=== PATIENT | male | born 1945 | race Two or more races ===

== ENCOUNTER 2024-10-31 15:30 | Emergency (ER) | payer OTHER, MEDICARE ==
[2024-10-31] MEDS: SODIUM CHLORIDE 0.9% 1,000 ML IV STA (16:19)
[2024-10-31] MEDS: LIDOCAINE 4% PATCH TOPICAL STA (16:23)
[2024-10-31] MEDS: methylPREDNISolone SOD SUCCI 125 MG/2 ML VIAL IV STA (16:26)
[2024-10-31] MEDS: KETOROLAC 15 MG/ML 1 ML VIAL IVP STA (16:26)
[2024-10-31 16:28] LABS: Basophils % (A) 0 %; Eosinophils # (A) 0.2 k/uL (0-0.7); Eosinophils % (A) 2 %; HCT 42.2 % (39.0-53.0); HGB 14.3 gm/dL (13.0-17.5); Lymphocytes # (A) 1.2 k/uL (1.0-4.8); Lymphocytes % (A) 11 %; MCH 31.7 pg (25.0-35.0); MCHC 33.8 g/dL (31.0-37.0); MCV 93.9 fL (80.0-100.0); Mean Platelet Volume 7.4; Monocytes # (A) 0.8 k/uL (0-1.0); Monocytes % (A) 7 %; Neutrophils % (A) 80 %; Platelet Count 316 k/uL (150-450); RBC 4.49 m/uL (4.30-5.90); RDW 13.1 % (11.5-15.5); WBC 11.3 k/uL (3.8-10.6)
[2024-10-31 16:40] LABS: ALT 20 U/L (4-49); AST 23 U/L (17-59); African American GFR (CKD) 53 (>60 ml/min/1.73 sqM); Albumin 4.2 g/dL (3.5-5.0); Alkaline Phosphatase 123 U/L (38-126); Anion Gap 11 mmol/L; Blood Urea Nitrogen 24 mg/dL (9-20); Calcium 9.6 mg/dL (8.4-10.2); Carbon Dioxide 21 mmol/L (22-30); Chloride 102 mmol/L (98-107); Glucose 246 mg/dL (74-99); Non-African American GFR(CKD) 46 (>60 ml/min/1.73 sqM); Potassium 4.8 mmol/L (3.5-5.1); Sodium 134 mmol/L (137-145); Total Bilirubin 0.8 mg/dL (0.2-1.3); Total Protein 7.6 g/dL (6.3-8.2)
--- NOTE | 2024-10-31 16:51 | XR ---
EXAMINATION TYPE: XR chest 2V DATE OF EXAM: 10/31/2024 4:42 PM COMPARISON: None. CLINICAL INDICATION: Male, 79 years old with history of difficulty breathing, TECHNIQUE: XR chest 2V view(s) obtained. FINDINGS: The heart size is normal. The pulmonary vasculature is normal. No suspicious focal consolidation evident. Follow-up can be performed as clinically indicated. IMPRESSION: 1. No acute pulmonary process. [facility], Workstation: [facility] [place] [facility], 10/31/2024 4:48 PM
[2024-10-31 17:03] LABS: Influenza A Not Detected (Not Detectd); Influenza B Not Detected (Not Detectd); RSV Not Detected (Not Detectd)
[2024-10-31] MEDS: IPRATROPIUM-ALBUTEROL 3 ML NEB INHALATION STA (17:36)
--- NOTE | 2024-10-31 18:15 | ED ---
General Adult HPI - General Chief complaint: Shortness of Breath Stated complaint: CARLOS Time Seen by Provider: 10/31/24 16:02 Source: patient, RN notes reviewed, old records reviewed Mode of arrival: wheelchair Limitations: no limitations - History of Present Illness Initial comments: Patient is a 79-year-old male with past medical history remarkable for tobacco use, COPD, recent bronchitis that he completed treatment for last week, who presents emergency department with worsening cough, congestion for the last day or so. Denies any fevers or chills. Denies any sick contacts. Patient has been having some chest wall pain with the coughing starting today. Is typically not on an inhaler. No longer smokes tobacco. Presents for further evaluation at this time. Chest wall pain is sharp, on the right side pinpoint on one of the lower ribs and is worse with palpation of that rib. No obvious injuries or falls. Presents for further evaluation at this time. - Related Data Previous Rx's Medication Instructions Recorded Albuterol Inhaler [Ventolin Hfa 1 - 2 puff INHALATION Q6H PRN #1 10/31/24 Inhaler] each Doxycycline [Vibramycin] 100 mg PO BID 7 Days #14 capsule 10/31/24 Lidocaine 5% Patch [Lidoderm 5% 1 patch TOPICAL DAILY PRN 14 Days 10/31/24 Patch] #14 patch predniSONE [Deltasone] 40 mg PO DAILY 6 Days #12 tab 10/31/24 Allergies Allergy/AdvReac Type Severity Reaction Status Date / Time amoxicillin Allergy Unknown Verified 10/31/24 15:42 Penicillins Allergy Unknown Verified 10/31/24 15:42 Review of Systems ROS Statement: Those systems with pertinent positive or pertinent negative responses have been documented in the HPI. Review of Systems: CONST: Denies fever EYES: Denies blurry vision ENT: Denies nasal congestion C/V: Denies Chest pain RESP: Endorses shortness of breath GI: Denies abdominal pain : Denies dysuria SKIN: Denies rash. MSK: Denies joint pain. NEURO: Denies headache ROS Other: All systems not noted in ROS Statement are negative. Past Medical History Past Medical History: COPD, Diabetes Mellitus, Hypertension Additional Past Medical History / Comment(s): "I take a lot of medication, I don't know what I take it for" Past Surgical History: Back Surgery, Hernia Repair, Tonsillectomy Additional Past Surgical History / Comment(s): neck surgery Smoking Status: Current every day smoker Past Alcohol Use History: None Reported Past Drug Use History: Marijuana General Exam - General Exam Comments Initial Comments: General: Appears in no acute distress. HEAD: Normal with no signs of head trauma. EYES: PERRLA, EOMI, conjunctiva normal, no discharge. ENT: Hearing grossly intact, normal oropharynx. RESPIRATORY: Coarse breath sounds bilaterally with bilateral end expiratory wheezing. No significant increased work of breathing. No hypoxia. C/V: Regular rate and rhythm. S1 and S2 auscultated, no edema, peripheral pulses 2+ and intact throughout ABD: Abd is soft, nontender, nondistended EXT: Normal range of motion, no obvious deformity SKIN: No rashes or lesions observed on exposed skin. NEURO: Alert and oriented x 4. 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 sent in by a medical professional or institution (, PA, COMPANY LABORER, urgent care, hospital, or long-term...) When possible be specific @ -No Did you speak to anyone other than the patient for history (EMS, parent, family, police, friend...)? What history was obtained from this source @ -No Did you review nursing and triage notes (agree or disagree)? Why? @ -I reviewed and agree with nursing and triage notes Were old charts reviewed (outside hosp., previous admission, EMS record, old EKG, old radiological studies, urgent care reports/EKG's, long-term records)? Report findings @ -No old charts were reviewed Differential Diagnosis (chest pain, altered mental status, abdominal pain women, abdominal pain men, vaginal bleeding, weakness, fever, dyspnea, syncope, headache, dizziness, GI bleed, back pain, seizure, CVA, palpatations, mental health, musculoskeletal)? @ -COPD, pneumonia, flu, COVID, RSV. This list is not all inclusive. EKG interpreted by me (3pts min.). @ -As above X-rays interpreted by me (1pt min.). @ -Chest x-ray reveals no obvious acute cardiopulmonary process. CT interpreted by me (1pt min.). @ -None done U/S interpreted by me (1pt. min.). @ -None done What testing was considered but not performed or refused? (CT, X-rays, U/S, labs)? Why? @ -None What meds were considered but not given or refused? Why? @ -None Did you discuss the management of the patient with other professionals (professionals i.e. , PA, COMPANY LABORER, lab, RT, psych nurse, psychologist social, php website developer, teacher, weapons electrical engineering officer, case mgr)? Give summary @ -No Was smoking cessation discussed for >3mins.? @ -No Was critical care preformed (if so, how long)? @ -No Were there social determinants of health that impacted care today? How? (Homelessness, low income, unemployed, alcoholism, drug addiction, transportation, low edu. Level, literacy, decrease access to med. care, halfway, rehab)? @ -No Was there de-escalation of care discussed even if they declined (Discuss DNR or withdrawal of care, Hospice)? DNR status @ -No What co-morbidities impacted this encounter? (DM, HTN, Smoking, COPD, CAD, Cancer, CVA, ARF, Chemo, Hep., AIDS, mental health diagnosis, sleep apnea, morbid obesity)? @ -COPD Was patient admitted / discharged? Hospital course, mention meds given and route, prescriptions, significant lab abnormalities, going to OR and other perti nent info. @ -Patient presents with chest wall pain/rib pain over the right chest as well as shortness of breath. Appears to be a COPD exacerbation. Laboratory studies will be obtained. Vital signs are within acceptable limits. We will obtain viral swabs as well as chest x-ray. Patient was in agreement this plan. Patient be given multiple breathing treatments, IV steroids, IV fluids. Chest x-ray returned unremarkable for any obvious acute cardiopulmonary process. EKG shows no signs of acute ischemia. Laboratory studies are all within acceptable limits at this time. Viral swabs negative. May be a mild MONTSE but patient did receive 1 L fluid bolus. Discussed results with the patient. Likely a tracheobronchitis that is acute in addition to COPD exacerbation. Patient will be placed on a steroid prescription as well as doxycycline for tracheobronchitis. Patient given a refill on his albuterol inhaler. Patient was given lidocaine patch and IV Toradol which did help his right sided rib pain which is likely either contusion or intercostal muscle strain from the coughing. Recommended pain control at that site. He was in agreement this plan. Strict return precautions discussed. Given a auto service representative to follow-up with. I instructed the patient to follow up with their PCP in the next 1-3 days. I explained that the patient should return to the emergency department if they experience any worsening symptoms. Strict return precautions were discussed with the patient. The patient expressed understanding of these instructions. I answered all questions that the patient had. The patient was discharged home in good condition with their prescriptions and follow up information. Undiagnosed new problem with uncertain prognosis? @ -No Drug Therapy requiring intensive monitoring for toxicity (Heparin, Nitro, Insulin, Cardizem)? @ -No Were any procedures done? @ -No Diagnosis/symptom? @ -COPD, acute tracheobronchitis Acute, or Chronic, or Acute on Chronic? @ -Acute Uncomplicated (without systemic symptoms) or Complicated (systemic symptoms)? @ -Uncomplicated Side effects of treatment? @ -No Exacerbation, Progression, or Severe Exacerbation? @ -No Poses a threat to life or bodily function? How? (Chest pain, [place], [place], pneumonia, PE, COPD, DKA, ARF, appy, cholecystitis, CVA, Diverticulitis, Homicidal, Suicidal, threat to staff... and all critical care pts) @ -Unlikely at this time - Lab Data Result diagrams: 10/31/24 16:13 10/31/24 16:13 Lab Results 10/31/24 10/31/24 10/31/24 Range/Units 16:13 16:13 16:14 WBC 11.3 H (3.8-10.6) k/uL RBC 4.49 (4.30-5.90) m/uL Hgb 14.3 (13.0-17.5) gm/dL Hct 42.2 (39.0-53.0) % MCV 93.9 (80.0-100.0) fL MCH 31.7 (25.0-35.0) pg MCHC 33.8 (31.0-37.0) g/dL RDW 13.1 (11.5-15.5) % Plt Count 316 (150-450) k/uL MPV 7.4 Neutrophils % 80 % Lymphocytes % 11 % Monocytes % 7 % Eosinophils % 2 % Basophils % 0 % Neutrophils # 9.0 H (1.3-7.7) k/uL Lymphocytes # 1.2 (1.0-4.8) k/uL Monocytes # 0.8 (0-1.0) k/uL Eosinophils # 0.2 (0-0.7) k/uL Basophils # 0.0 (0-0.2) k/uL Sodium 134 L (137-145) mmol/L Potassium 4.8 (3.5-5.1) mmol/L Chloride 102 (98-107) mmol/L Carbon Dioxide 21 L (22-30) mmol/L Anion Gap 11 mmol/L BUN 24 H (9-20) mg/dL Creatinine 1.46 H (0.66-1.25) mg/dL Est GFR (CKD-EPI)AfAm 53 (>60 ml/min/1.73 sqM) Est GFR (CKD-EPI)NonAf 46 (>60 ml/min/1.73 sqM) Glucose 246 H (74-99) mg/dL Calcium 9.6 (8.4-10.2) mg/dL Magnesium 2.0 (1.6-2.3) mg/dL Total Bilirubin 0.8 (0.2-1.3) mg/dL AST 23 (17-59) U/L ALT 20 (4-49) U/L Alkaline Phosphatase 123 (38-126) U/L Total Protein 7.6 (6.3-8.2) g/dL Albumin 4.2 (3.5-5.0) g/dL Influenza Type A (PCR) Not Detected (Not Detectd) Influenza Type B (PCR) Not Detected (Not Detectd) RSV (PCR) Not Detected (Not Detectd) SARS-CoV-2 (PCR) Not Detected (Not Detectd) - EKG Data -: EKG Interpreted by Me EKG Comments: 12-lead Electrocardiogram Interpretation Note EKG was reviewed and interpreted by myself. 12-lead ECG performed at 1556 is interpreted by me as revealing sinus tachycardia at a rate of 110 beats per minute. Left axis deviation. ID interval is 191 ms, QRS durations 133 ms, QTc is 377 ms.. There were no ST or T wave abnormalities to suggest myocardial ischemia or injury. R wave progression across the precordium was satisfactory. By my interpretation this EKG is non-diagnostic for acute ischemia. Disposition Clinical Impression: COPD (chronic obstructive pulmonary disease), Tracheobronchitis Disposition: HOME SELF-CARE Condition: Good Instructions (If sedation given, give patient instructions): Acute Bronchitis (ED), COPD (Chronic Obstructive Pulmonary Disease) (ED) Additional Instructions: Follow-up with your PCP or pulmonology in the next 1 to 3 days. You likely a tracheobronchitis/bronchitis with COPD exacerbation. Complete course of ant ibiotics and steroids. Use inhaler as needed. Return if any worsening symptoms. Prescriptions: predniSONE [Deltasone] 40 mg PO DAILY 6 Days #12 tab Lidocaine 5% Patch [Lidoderm 5% Patch] 1 patch TOPICAL DAILY PRN 14 Days #14 patch PRN Reason: Pain Albuterol Inhaler [Ventolin Hfa Inhaler] 1 - 2 puff INHALATION Q6H PRN #1 each PRN Reason: Dyspnea Doxycycline [Vibramycin] 100 mg PO BID 7 Days #14 capsule Is patient prescribed a controlled substance at d/c from ED?: No Referrals: Jaiden Cardona MD [Primary Care Provider] - 1-2 days Tim Quarles DO [Doctor of Osteopathic Medicine] - 1-2 days Time of Disposition: 18:15
[2024-10-31] MEDS: DOXYCYCLINE 100 MG CAP PO STA (18:42)
[2024-10-31] MEDS: cefTRIAXone IN SWFI 1,000 MG/10 ML SYRINGE IVP STA (18:43)
[2024-10-31 19:01] VITALS: BP 110/68; RESP 18; TEMP 97.6
[2024-10-31 19:04] VITALS: PULSE 103
== END 2024-10-31 18:58 | disposition home or self-care (01) ==
LOC: EC 15:30
DX: J44.9 Chronic obstructive pulmonary disease, unspecified (principal); J40 Bronchitis, not specified as acute or chronic; F17.200 Nicotine dependence, unspecified, uncomplicated; Z88.0 Allergy status to penicillin
CPT/HCPCS: 36415; 94640; 93005; 80053; 83735; 85025; 87636; 71046; 99285; 96374; 96375 ×2; 96361; J0696; J1885; J2919

== ENCOUNTER 2024-12-07 16:53 | Inpatient (IN) | payer MEDICARE, OTHER ==
[2024-12-07] MEDS: SODIUM CHLORIDE 0.9% 1,000 ML IV STA (17:07)
--- NOTE | 2024-12-07 17:10 | ED ---
SOB HPI - General Chief Complaint: Shortness of Breath Stated Complaint: CARLOS Time Seen by Provider: 12/07/24 16:55 Source: patient, EMS, RN notes reviewed, old records reviewed Mode of arrival: EMS Limitations: no limitations - History of Present Illness Initial Comments: This is a 79-year-old male to the ER for significant shortness of breath recently recovering from bronchitis feels like he is having difficulty breathing here in the ER patient went to the ground was unable to get up off the ground became more short of breath while lying on the ground. Patient was on the ground for a few hours he believes unable to get up, patient denies passing out or other issue prior to the fall was not significantly short of breath prior to the fall and states that he fell because he was clumsy MD Complaint: shortness of breath, cough -: days(s) Radiation: back Consistency: constant, intermittent Worsens With: exertion Known History Of: COPD, asthma Context: recent URI, anxiety, recent illness Associated Symptoms: denies other symptoms - Related Data Home Medications Medication Instructions Recorded Confirmed Albuterol Sulfate [Albuterol 1 puff INHALATION RT-Q4H PRN 11/22/24 12/07/24 Sulfate Hfa] FLUoxetine HCL [PROzac] 10 mg PO TID 11/22/24 12/07/24 Gabapentin [Neurontin] 100 mg PO TID 11/22/24 12/07/24 Mv-Min/Folic/K1/Lycopen/Lutein 1 tab PO DAILY 11/22/24 12/07/24 [Centrum Silver Men Tablet] QUEtiapine [SEROquel] 25 mg PO BID 11/22/24 12/07/24 Zonisamide [Zonegran] 50 mg PO BID 11/22/24 12/07/24 Zonisamide [Zonegran] 100 mg PO BID 11/22/24 12/07/24 Apixaban [Eliquis] 5 mg PO BID 12/07/24 12/07/24 Budesonide-Formot 160-4.5 Mcg 2 puff INHALATION RT-BID 12/07/24 12/07/24 [Symbicort 160-4.5 Mcg Inhaler] Previous Rx's Medication Instructions Recorded Ipratropium-Albuterol Nebulize 3 ml INHALATION TID #90 ml 11/23/24 [Duoneb 0.5 mg-3 mg/3 ml Soln] Allergies Allergy/AdvReac Type Severity Reaction Status Date / Time amoxicillin Allergy Unknown Verified 12/07/24 19:03 Penicillins Allergy Unknown Verified 12/07/24 19:03 Review of Systems ROS Statement: Those systems with pertinent positive or pertinent negative responses have been documented in the HPI. ROS Other: All systems not noted in ROS Statement are negative. Past Medical History Past Medical History: COPD, Diabetes Mellitus, Hypertension Additional Past Medical History / Comment(s): "I take a lot of medication, I don't know what I take it for" History of Any Multi-Drug Resistant Organisms: None Reported Past Surgical History: Back Surgery, Hernia Repair, Tonsillectomy Additional Past Surgical History / Comment(s): neck surgery Past Psychological History: No Psychological Hx Reported Smoking Status: Current every day smoker Past Alcohol Use History: None Reported Past Drug Use History: None Reported, Marijuana General Exam Limitations: no limitations General appearance: alert, in no apparent distress, anxious Head exam: Present: atraumatic, normocephalic, normal inspection Eye exam: Present: normal appearance, PERRL, EOMI. Absent: scleral icterus, conjunctival injection, periorbital swelling ENT exam: Present: normal exam, mucous membranes moist Neck exam: Present: normal inspection. Absent: tenderness, meningismus, lymphadenopathy Respiratory exam: Present: normal lung sounds bilaterally, wheezes. Absent: respiratory distress, rales, rhonchi, stridor Cardiovascular Exam: Present: normal rhythm, tachycardia, normal heart sounds. Absent: systolic murmur, diastolic murmur, rubs, gallop, clicks GI/Abdominal exam: Present: soft, normal bowel sounds. Absent: distended, tenderness, guarding, rebound, rigid Extremities exam: Present: normal inspection, full ROM, normal capillary refill. Absent: tenderness, pedal edema, joint swelling, calf tenderness Back exam: Present: normal inspection Neurological exam: Present: alert, oriented X3, CN II-XII intact Psychiatric exam: Present: normal affect, normal mood Skin exam: Present: warm, dry, intact, normal color. Absent: rash Course Vital Signs 12/07/24 12/07/24 12/07/24 16:56 17:15 19:41 Temperature 98.1 F Pulse Rate 121 H 109 H Respiratory 20 24 Rate Blood Pressure 108/69 O2 Sat by Pulse 93 L Oximetry 12/07/24 12/07/24 12/07/24 19:51 20:10 21:12 Temperature 97.8 F Pulse Rate 112 H 112 H 115 H Respiratory 15 19 Rate Blood Pressure 93/65 84/56 O2 Sat by Pulse 97 97 Oximetry 12/08/24 12/08/24 12/08/24 00:00 01:30 02:30 Temperature Pulse Rate 70 98 97 Respiratory 18 17 15 Rate Blood Pressure 96/63 79/40 107/55 O2 Sat by Pulse 96 97 99 Oximetry 12/08/24 12/08/24 12/08/24 03:30 03:54 04:04 Temperature Pulse Rate 89 91 89 Respiratory 16 Rate Blood Pressure 112/84 O2 Sat by Pulse 98 Oximetry 12/08/24 12/08/24 12/08/24 05:27 07:42 12:38 Temperature Pulse Rate 75 90 Respiratory 19 Rate Blood Pressure 91/58 O2 Sat by Pulse 97 100 Oximetry 12/08/24 12/08/24 12:47 13:09 Temperature Pulse Rate 88 101 H Respiratory 22 Rate Blood Pressure 107/49 O2 Sat by Pulse 97 Oximetry - Reevaluation(s) Reevaluation #1: 12/07/24 17:39 Medical records reviewed Reevaluation #2: 12/07/24 19:33 Patient feels well here in the ER although heart rate is increasing With elevated heart rate atrial fibrillation patient is having low blood pressure Reevaluation #3: 12/07/24 19:33 Patient informed of results and questions answered Reevaluation #4: Was pt. sent in by a medical professional or institution (, PA, MOBILE MARKETING MANAGER, urgent care, hospital, or half-way...) When possible be specific @ -no Did you speak to anyone other than the patient for history (EMS, parent, family, police, friend...)? What history was obtained from this source @ -no Did you review nursing and triage notes (agree or disagree)? Why? @ -agree Are old charts reviewed (outside hosp., previous admission, EMS record, old EKG, old radiological studies, urgent care reports/EKG's, half-way records)? Report findings @ -yes Differential Diagnosis (chest pain, altered mental status, abdominal pain women, abdominal pain men, vaginal bleeding, weakness, fever, dyspnea, syncope, headache, dizziness, GI bleed, back pain, seizure, CVA, palpatations, mental health, musculoskeletal)? @ -prior EKG interpreted by me (3pts min.). @ -yes X-rays interpreted by me (1pt min.). @ -yes negative for acute disease persisting right upper lobe opacification CT interpreted by me (1pt min.). @ -no U/S interpreted by me (1pt. min.). @ -no What testing was considered but not performed or refused? (CT, X-rays, U/S, labs)? Why? @ -none What meds were considered but not given or refused? Why? @ -none Did you discuss the management of the patient with other professionals (professionals i.e. , PA, MOBILE MARKETING MANAGER, lab, RT, psych nurse, social staff worker, organ pipe voicer, teacher, coastal/harbor defense officer, embedded case manager)? Give summary @ -no Was smoking cessation discussed for >3mins.? @ -no Was critical care preformed (if so, how long)? @ -yes31 Were there social determinants of health that impacted care today? How? (Homelessness, low income, unemployed, alcoholism, drug addiction, transportation, low edu. Level, literacy, decrease access to med. care, intermediate, rehab)? @ -none Was there de-escalation of care discussed even if they declined (Discuss DNR or withdrawal of care, Hospice)? DNR status @ -no What co-morbidities impacted this encounter? (DM, HTN, Smoking, COPD, CAD, Cancer, CVA, ARF, Chemo, Hep., AIDS, mental health diagnosis, sleep apnea, morbid obesity)? @ -none Was patient admitted / discharged? Hospital course, mention meds given and route, prescriptions, significant lab abnormalities, going to OR and other pertinent info. @ - 79 male to ER for evaluation of dyspnea, this event occurred initially after falling, trip and fall at home was unable to get off the ground and became progressively short of breath while the ground patient is found to be in new onset atrial fibrillation with RVR chronic lung condition and lung disease from acute on chronic bronchitis and mediastinal mass and right upper lobe opacification, patient will admit for initial hypoxia A-fib with RVR, patient is on anticoagulation for blood clot Admit Undiagnosed new problem with uncertain prognosis? @ -no Drug Therapy requiring intensive monitoring for toxicity (Heparin, Nitro, Insulin, Cardizem)? @ -no Were any procedures done? @ -no Diagnosis/symptom? @ -A-fib with RVR,chronic bronchitis upper lobe opacification Acute, or Chronic, or Acute on Chronic? @ -Acute Uncomplicated (without systemic symptoms) or Complicated (systemic symptoms)? @ -Complicated Side effects of treatment? @ -no Exacerbation, Progression, or Severe Exacerbation? @ -exacerbation Poses a threat to life or bodily function? How? (Chest pain, [place], [place], pneumonia, PE, COPD, DKA, ARF, appy, cholecystitis, CVA, Diverticulitis, Homicidal, Suicidal, threat to staff... and all critical care pts) @ -yes extremes of age Reevaluation #5: Differential Dyspnea: Coronary syndrome, arrhythmia, tamponade, asthma, COPD, pulmonary embolism, pneumonia, pneumothorax, pulmonary effusion, anaphylaxis, diabetic ketoacidosis, flailed chest, pulmonary contusion, diaphragmatic rupture, anemia, neuromuscular, this is not meant to be an all-inclusive list. - Consultations Consultation #1: Spoke with [facility] who agrees to admit this patient Medical Decision Making - Medical Decision Making 79 male to ER for evaluation of dyspnea, this event occurred initially after falling, trip and fall at home was unable to get off the ground and became progressively short of breath while the ground patient is found to be in new onset atrial fibrillation with RVR chronic lung condition and lung disease from acute on chronic bronchitis and mediastinal mass and right upper lobe opacification, patient will admit for initial hypoxia A-fib with RVR, patient is on anticoagulation for blood clot - Lab Data Result diagrams: 12/14/24 06:59 12/14/24 06:59 Lab Results 12/07/24 12/07/24 12/07/24 Range/Units 17:02 17:02 17:02 WBC 8.5 (3.8-10.6) k/uL RBC 4.11 L (4.30-5.90) m/uL Hgb 11.8 L (13.0-17.5) gm/dL Hct 39.1 (39.0-53.0) % MCV 95.0 (80.0-100.0) fL MCH 28.6 (25.0-35.0) pg MCHC 30.1 L (31.0-37.0) g/dL RDW 13.2 (11.5-15.5) % Plt Count 334 (150-450) k/uL MPV 7.2 Neutrophils % 82 % Lymphocytes % 12 % Monocytes % 4 % Eosinophils % 1 % Basophils % 0 % Neutrophils # 6.9 (1.3-7.7) k/uL Lymphocytes # 1.0 (1.0-4.8) k/uL Monocytes # 0.3 (0-1.0) k/uL Eosinophils # 0.0 (0-0.7) k/uL Basophils # 0.0 (0-0.2) k/uL Hypochromasia Slight PT 10.9 (10.0-12.5) sec INR 1.0 (<1.2) APTT 24.9 (22.0-30.0) sec Sodium 132 L (137-145) mmol/L Potassium 4.6 (3.5-5.1) mmol/L Chloride 97 L (98-107) mmol/L Carbon Dioxide 21 L (22-30) mmol/L Anion Gap 14 mmol/L BUN 25 H (9-20) mg/dL Creatinine 1.42 H (0.66-1.25) mg/dL Est GFR (CKD-EPI)AfAm 55 (>60 ml/min/1.73 sqM) Est GFR (CKD-EPI)NonAf 48 (>60 ml/min/1.73 sqM) Glucose 256 H (74-99) mg/dL Lactic Ac Sepsis Rflx Plasma Lactic Acid Chepe (0.7-2.0) mmol/L Calcium 9.2 (8.4-10.2) mg/dL Phosphorus 4.1 (2.5-4.5) mg/dL Magnesium 1.9 (1.6-2.3) mg/dL Total Bilirubin 0.7 (0.2-1.3) mg/dL AST 28 (17-59) U/L ALT 28 (4-49) U/L Alkaline Phosphatase 140 H (38-126) U/L Creatine Kinase (55-170) U/L Troponin I (0.000-0.034) ng/mL NT-Pro-B Natriuret Pep 6220 pg/mL Total Protein 6.9 (6.3-8.2) g/dL Albumin 3.6 (3.5-5.0) g/dL TSH 1.480 (0.465-4.680) mIU/L Influenza Type A (PCR) (Not Detectd) Influenza Type B (PCR) (Not Detectd) RSV (PCR) (Not Detectd) SARS-CoV-2 (PCR) (Not Detectd) 12/07/24 12/07/24 12/07/24 Range/Units 17:02 17:02 17:02 WBC (3.8-10.6) k/uL RBC (4.30-5.90) m/uL Hgb (13.0-17.5) gm/dL Hct (39.0-53.0) % MCV (80.0-100.0) fL MCH (25.0-35.0) pg MCHC (31.0-37.0) g/dL RDW (11.5-15.5) % Plt Count (150-450) k/uL MPV Neutrophils % % Lymphocytes % % Monocytes % % Eosinophils % % Basophils % % Neutrophils # (1.3-7.7) k/uL Lymphocytes # (1.0-4.8) k/uL Monocytes # (0-1.0) k/uL Eosinophils # (0-0.7) k/uL Basophils # (0-0.2) k/uL Hypochromasia PT (10.0-12.5) sec INR (<1.2) APTT (22.0-30.0) sec Sodium (137-145) mmol/L Potassium (3.5-5.1) mmol/L Chloride (98-107) mmol/L Carbon Dioxide (22-30) mmol/L Anion Gap mmol/L BUN (9-20) mg/dL Creatinine (0.66-1.25) mg/dL Est GFR (CKD-EPI)AfAm (>60 ml/min/1.73 sqM) Est GFR (CKD-EPI)NonAf (>60 ml/min/1.73 sqM) Glucose (74-99) mg/dL Lactic Ac Sepsis Rflx Plasma Lactic Acid Chepe 2.5 H* (0.7-2.0) mmol/L Calcium (8.4-10.2) mg/dL Phosphorus (2.5-4.5) mg/dL Magnesium (1.6-2.3) mg/dL Total Bilirubin (0.2-1.3) mg/dL AST (17-59) U/L ALT (4-49) U/L Alkaline Phosphatase (38-126) U/L Creatine Kinase 58 (55-170) U/L Troponin I 0.019 (0.000-0.034) ng/mL NT-Pro-B Natriuret Pep pg/mL Total Protein (6.3-8.2) g/dL Albumin (3.5-5.0) g/dL TSH (0.465-4.680) mIU/L Influenza Type A (PCR) (Not Detectd) Influenza Type B (PCR) (Not Detectd) RSV (PCR) (Not Detectd) SARS-CoV-2 (PCR) (Not Detectd) 12/07/24 12/07/24 Range/Units 17:29 18:04 WBC (3.8-10.6) k/uL RBC (4.30-5.90) m/uL Hgb (13.0-17.5) gm/dL Hct (39.0-53.0) % MCV (80.0-100.0) fL MCH (25.0-35.0) pg MCHC (31.0-37.0) g/dL RDW (11.5-15.5) % Plt Count (150-450) k/uL MPV Neutrophils % % Lymphocytes % % Monocytes % % Eosinophils % % Basophils % % Neutrophils # (1.3-7.7) k/uL Lymphocytes # (1.0-4.8) k/uL Monocytes # (0-1.0) k/uL Eosinophils # (0-0.7) k/uL Basophils # (0-0.2) k/uL Hypochromasia PT (10.0-12.5) sec INR (<1.2) APTT (22.0-30.0) sec Sodium (137-145) mmol/L Potassium (3.5-5.1) mmol/L Chloride (98-107) mmol/L Carbon Dioxide (22-30) mmol/L Anion Gap mmol/L BUN (9-20) mg/dL Creatinine (0.66-1.25) mg/dL Est GFR (CKD-EPI)AfAm (>60 ml/min/1.73 sqM) Est GFR (CKD-EPI)NonAf (>60 ml/min/1.73 sqM) Glucose (74-99) mg/dL Lactic Ac Sepsis Rflx Y Plasma Lactic Acid Chepe (0.7-2.0) mmol/L Calcium (8.4-10.2) mg/dL Phosphorus (2.5-4.5) mg/dL Magnesium (1.6-2.3) mg/dL Total Bilirubin (0.2-1.3) mg/dL AST (17-59) U/L ALT (4-49) U/L Alkaline Phosphatase (38-126) U/L Creatine Kinase (55-170) U/L Troponin I (0.000-0.034) ng/mL NT-Pro-B Natriuret Pep pg/mL Total Protein (6.3-8.2) g/dL Albumin (3.5-5.0) g/dL TSH (0.465-4.680) mIU/L Influenza Type A (PCR) Not Detected (Not Detectd) Influenza Type B (PCR) Not Detected (Not Detectd) RSV (PCR) Not Detected (Not Detectd) SARS-CoV-2 (PCR) Not Detected (Not Detectd) - EKG Data -: EKG Interpreted by Me (EKG is a flutter tachycardia 117 QRS 124 QTc 404) - Radiology Data Radiology results: report reviewed (Chest x-ray is unchanged from prior chest x- ray), image reviewed Disposition Clinical Impression: Acute exacerbation of chronic obstructive pulmonary disease, Acute respiratory failure, Hypoxia, Atrial fibrillation with rapid ventricular response, Lung m ass, Pulmonary embolism Disposition: ADMITTED IP TO THIS HOSP Condition: Serious Is patient prescribed a controlled substance at d/c from ED?: No Time of Disposition: 19:30
[2024-12-07 17:23] LABS: Basophils % (A) 0 %; Eosinophils % (A) 1 %; HCT 39.1 % (39.0-53.0); HGB 11.8 gm/dL (13.0-17.5); Hypochromasia Slight; Lymphocytes % (A) 12 %; MCH 28.6 pg (25.0-35.0); MCHC 30.1 g/dL (31.0-37.0); Mean Platelet Volume 7.2; Monocytes # (A) 0.3 k/uL (0-1.0); Monocytes % (A) 4 %; Neutrophils # (A) 6.9 k/uL (1.3-7.7); Neutrophils % (A) 82 %; Platelet Count 334 k/uL (150-450); RBC 4.11 m/uL (4.30-5.90); RDW 13.2 % (11.5-15.5); WBC 8.5 k/uL (3.8-10.6)
--- NOTE | 2024-12-07 17:30 | XR ---
EXAMINATION TYPE: XR chest 2V DATE OF EXAM: 12/07/2024 5:23 PM COMPARISON: Previous chest radiograph 11/21/2024. CLINICAL INDICATION: Male, 79 years old with history of Weakness; [facility] TECHNIQUE: XR chest 2V Frontal and lateral views of the chest. FINDINGS: Lungs/Pleura: Complete collapse of the right upper lobe and prominence of the right hilar region. No sizable pleural effusion. Pulmonary vascularity: Unremarkable. Heart/mediastinum: Cardiomediastinal silhouette is unremarkable. Musculoskeletal: No acute osseous pathology. Thoracic spine degenerative changes Other findings: None IMPRESSION: Complete opacification of the right upper lobe, likely due to sequelae of obstructing mediastinal mas s previously described on CT study 11/21/2024. [facility], , 12/07/2024 5:28 PM
[2024-12-07 17:34] LABS: ALT 28 U/L (4-49); AST 28 U/L (17-59); African American GFR (CKD) 55 (>60 ml/min/1.73 sqM); Albumin 3.6 g/dL (3.5-5.0); Alkaline Phosphatase 140 U/L (38-126); Anion Gap 14 mmol/L; Blood Urea Nitrogen 25 mg/dL (9-20); Calcium 9.2 mg/dL (8.4-10.2); Carbon Dioxide 21 mmol/L (22-30); Chloride 97 mmol/L (98-107); Glucose 256 mg/dL (74-99); Magnesium 1.9 mg/dL (1.6-2.3); Non-African American GFR(CKD) 48 (>60 ml/min/1.73 sqM); Phosphorus 4.1 mg/dL (2.5-4.5); Potassium 4.6 mmol/L (3.5-5.1); Sodium 132 mmol/L (137-145); Total Bilirubin 0.7 mg/dL (0.2-1.3); Total Protein 6.9 g/dL (6.3-8.2)
[2024-12-07 17:42] LABS: NT-Pro-B-Type Natriuretic Pept 6220 pg/mL
[2024-12-07 17:45] LABS: Partial Thromboplastin Time 24.9 sec (22.0-30.0); Prothrombin Time 10.9 sec (10.0-12.5)
[2024-12-07 18:26] LABS: Influenza A Not Detected (Not Detectd); Influenza B Not Detected (Not Detectd); RSV Not Detected (Not Detectd)
[2024-12-07] MEDS ORDERED: NALOXONE 0.4 MG/ML 1 ML VIAL IV PRN (19:25)
[2024-12-07] MEDS: IPRATROPIUM-ALBUTEROL 3 ML NEB INHALATION STA (19:40)
[2024-12-07] MEDS: DILTIAZEM 125 MG in SODIUM CHLORIDE 0.9% 100 ML IV SCH (20:04)
[2024-12-07] MEDS: MORPHINE SULFATE 4 MG/ML SYRINGE IV PRN (20:05)
[2024-12-07] MEDS: DILTIAZEM DRIP BOLUS FROM BAG 1 MG SOLN IV ONE (20:05)
[2024-12-07] MEDS: SODIUM CHLORIDE 0.9% 1,000 ML IV SCH (20:06)
[2024-12-08] MEDS: IPRATROPIUM-ALBUTEROL 3 ML NEB INHALATION PRN (03:54)
[2024-12-08 04:27] LABS: ALT 25 U/L (4-49); AST 21 U/L (17-59); African American GFR (CKD) 56 (>60 ml/min/1.73 sqM); Alkaline Phosphatase 130 U/L (38-126); Anion Gap 7 mmol/L; Blood Urea Nitrogen 26 mg/dL (9-20); Calcium 8.6 mg/dL (8.4-10.2); Carbon Dioxide 22 mmol/L (22-30); Chloride 99 mmol/L (98-107); Magnesium 1.9 mg/dL (1.6-2.3); Non-African American GFR(CKD) 49 (>60 ml/min/1.73 sqM); Phosphorus 4.7 mg/dL (2.5-4.5); Potassium 4.9 mmol/L (3.5-5.1); Sodium 128 mmol/L (137-145); Total Bilirubin 0.4 mg/dL (0.2-1.3); Total Protein 5.8 g/dL (6.3-8.2)
[2024-12-08 04:31] LABS: Glucose 558 mg/dL (74-99)
[2024-12-08 04:39] LABS: Glucose,Whole Blood 559 mg/dL (70-110)
[2024-12-08 04:46] LABS: Basophils % (A) 0 %; Eosinophils % (A) 0 %; HGB 10.4 gm/dL (13.0-17.5); Hypochromasia Slight; Lymphocytes # (A) 0.3 k/uL (1.0-4.8); Lymphocytes % (A) 6 %; MCH 29.8 pg (25.0-35.0); MCHC 30.5 g/dL (31.0-37.0); MCV 97.6 fL (80.0-100.0); Mean Platelet Volume 7.8; Monocytes # (A) 0.2 k/uL (0-1.0); Monocytes % (A) 3 %; Neutrophils # (A) 4.6 k/uL (1.3-7.7); Neutrophils % (A) 90 %; Platelet Count 320 k/uL (150-450); RBC 3.49 m/uL (4.30-5.90); RDW 13.4 % (11.5-15.5); WBC 5.1 k/uL (3.8-10.6)
[2024-12-08] MEDS ORDERED: DEXTROSE 50% SYRINGE 50 ML IVP PRN ×2 (05:20)
[2024-12-08] MEDS: INSULIN LISPRO (HumaLOG) 100 UNIT/ML 10 mL VL SQ SCH ×2 (05:47→12:55)
[2024-12-08 06:40] LABS: Glucose,Whole Blood 426 mg/dL (70-110)
[2024-12-08 08:52] LABS: Glucose,Whole Blood 208 mg/dL (70-110)
[2024-12-08] MEDS ORDERED: ALBUTEROL HFA INHALER INHALATION PRN (10:58)
--- NOTE | 2024-12-08 11:50 | P.HPIM ---
History of Present Illness 79-year-old male came in after a fall patient denied any shortness of breath at this time. Patient is found to be in atrial fibrillation with rapid unclear rate this is new onset A-fib patient is presently sinus rhythm rate controlled. Patient was eval by cardiology was started on Anticoagulation and rate control medications. Patient has elevated proBNP with chest x-ray did not show any congestive heart failure patient has been n.p.o. 6000 although patient appears to be volume depleted clinically patient is hypotensive and hyponatremic. Patient does not have any elevated JVD or pedal edema. Patient fall is not secondary to syncope but he slipped and fell. Patient was recently hospitalized and found to have a mass in the right upper lobe patient quit smoking does not have any history of COPD as per the patient does not use any oxygen at home. Patient is saturating 100% on 2 L. Patient is supposed to follow-up with Dr. Quarles as an outpatient but did not make an appointment yet, patient is supposed to follow-up with oncology as well as an outpatient. Patient is supposed to follow-up with oncology as an outpatient as well. Is not a known diabetic but his blood sugars are in 500s I do not have any hemoglobin A1c available at this time. Patient was started on IV insulin. Patient also had mild lactic acidosis . Patient serum creatinine is 1.4 on admission came down to 1.3 patient has chronic history of chronic kidney disease. REVIEW OF SYSTEMS: All other systems are negative except those mentioned in the HPI PHYSICAL EXAMINATION: GENERAL: The patient is alert and oriented x3, not in any acute distress. Well developed, well nourished. HEENT: Pupils are round and equally reacting to light. EOMI. No scleral icterus. No conjunctival pallor. Normocephalic, atraumatic. No pharyngeal erythema. No thyromegaly. CARDIOVASCULAR: S1 and S2 present. No murmurs, rubs, or gallops. PULMONARY: Chest is clear to auscultation, no wheezing or crackles. ABDOMEN: Soft, nontender, nondistended, normoactive bowel sounds. No palpable organomegaly. MUSCULOSKELETAL: No joint swelling or deformity. EXTREMITIES: No cyanosis, clubbing, or pedal edema. NEUROLOGICAL: Gross neurological examination did not reveal any focal deficits. SKIN: No rashes. Assessment and plan -New onset atrial fibrillation: Patient was eval by cardiology echocardiogram will be obtained and patient will be started on anticoagulation with Eliquis -Uncontrolled elevated blood sugars, new onset type 2 diabetes mellitus will obtain hemoglobin A1c discontinue IV insulin patient will be started on 25 units of Lantus along with sliding scale monitor the blood sugars and titrate the insulin -Acute renal failure: Probably due to intravascular depletion patient was started on IV fluids -Hyponatremia hypoosmolar hyponatremia and hypovolemic hyponatremia: IV fluids as mentioned above -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 will need a biopsy as an outpatient -Possible COPD history presently not in acute exacerbation DVT prophylaxis: On Eliquis Past Medical History Past Medical History: COPD, Diabetes Mellitus, Hypertension Additional Past Medical History / Comment(s): "I take a lot of medication, I don't know what I take it for" History of Any Multi-Drug Resistant Organisms: None Reported Past Surgical History: Back Surgery, Hernia Repair, Tonsillectomy Additional Past Surgical History / Comment(s): neck surgery Past Psychological History: No Psychological Hx Reported Smoking Status: Current every day smoker Past Alcohol Use History: None Reported Past Drug Use History: None Reported, Marijuana Medications and Allergies Home Medications Medication Instructions Recorded Confirmed Type Albuterol Sulfate [Albuterol 1 puff INHALATION RT-Q4H PRN 11/22/24 12/07/24 History Sulfate Hfa] FLUoxetine HCL [PROzac] 10 mg PO TID 11/22/24 12/07/24 History Gabapentin [Neurontin] 100 mg PO TID 11/22/24 12/07/24 History Mv-Min/Folic/K1/Lycopen/Lutein 1 tab PO DAILY 11/22/24 12/07/24 History [Centrum Silver Men Tablet] QUEtiapine [SEROquel] 25 mg PO BID 11/22/24 12/07/24 History Zonisamide [Zonegran] 50 mg PO BID 11/22/24 12/07/24 History Zonisamide [Zonegran] 100 mg PO BID 11/22/24 12/07/24 History Ipratropium-Albuterol Nebulize 3 ml INHALATION TID #90 ml 11/23/24 12/07/24 Rx [Duoneb 0.5 mg-3 mg/3 ml Soln] Apixaban [Eliquis] 5 mg PO BID 12/07/24 12/07/24 History Budesonide-Formot 160-4.5 Mcg 2 puff INHALATION RT-BID 12/07/24 12/07/24 History [Symbicort 160-4.5 Mcg Inhaler] Allergies Allergy/AdvReac Type Severity Reaction Status Date / Time amoxicillin Allergy Unknown Verified 12/07/24 19:03 Penicillins Allergy Unknown Verified 12/07/24 19:03 Physical Exam Vitals: Vital Signs Temp Pulse Resp BP Pulse Ox 12/08/24 07:42 100 12/08/24 05:27 75 19 91/58 97 12/08/24 04:04 89 12/08/24 03:54 91 12/08/24 03:30 89 16 112/84 98 12/08/24 02:30 97 15 107/55 99 12/08/24 01:30 98 17 79/40 97 12/08/24 00:00 70 18 96/63 96 12/07/24 21:12 97.8 F 115 H 19 84/56 97 12/07/24 20:10 112 H 15 93/65 97 12/07/24 19:51 112 H 12/07/24 19:41 109 H 12/07/24 17:15 24 12/07/24 16:56 98.1 F 121 H 20 108/69 93 L Intake and Output 12/07/24 12/08/24 12/08/24 22:59 06:59 14:59 Other: Weight 99.79 kg Results CBC & Chem 7: 12/08/24 03:50 12/08/24 03:50 Labs: Abnormal Lab Results - Last 24 Hours (Table) 12/07/24 12/07/24 12/07/24 Range/Units 17:02 17:02 17:02 RBC 4.11 L (4.30-5.90) m/uL Hgb 11.8 L (13.0-17.5) gm/dL Hct (39.0-53.0) % MCHC 30.1 L (31.0-37.0) g/dL Lymphocytes # (1.0-4.8) k/uL Sodium 132 L (137-145) mmol/L Chloride 97 L (98-107) mmol/L Carbon Dioxide 21 L (22-30) mmol/L BUN 25 H (9-20) mg/dL Creatinine 1.42 H (0.66-1.25) mg/dL Glucose 256 H (74-99) mg/dL POC Glucose (mg/dL) (70-110) mg/dL Plasma Lactic Acid Chepe 2.5 H* (0.7-2.0) mmol/L Phosphorus (2.5-4.5) mg/dL Alkaline Phosphatase 140 H (38-126) U/L Total Protein (6.3-8.2) g/dL Albumin (3.5-5.0) g/dL 12/07/24 12/08/24 12/08/24 Range/Units 21:07 03:50 03:50 RBC 3.49 L (4.30-5.90) m/uL Hgb 10.4 L (13.0-17.5) gm/dL Hct 34.0 L (39.0-53.0) % MCHC 30.5 L (31.0-37.0) g/dL Lymphocytes # 0.3 L (1.0-4.8) k/uL Sodium 128 L (137-145) mmol/L Chloride (98-107) mmol/L Carbon Dioxide (22-30) mmol/L BUN 26 H (9-20) mg/dL Creatinine 1.39 H (0.66-1.25) mg/dL Glucose 558 H* (74-99) mg/dL POC Glucose (mg/dL) (70-110) mg/dL Plasma Lactic Acid Chepe 2.4 H* (0.7-2.0) mmol/L Phosphorus 4.7 H (2.5-4.5) mg/dL Alkaline Phosphatase 130 H (38-126) U/L Total Protein 5.8 L (6.3-8.2) g/dL Albumin 3.0 L (3.5-5.0) g/dL 12/08/24 12/08/24 12/08/24 Range/Units 04:36 06:38 08:51 RBC (4.30-5.90) m/uL Hgb (13.0-17.5) gm/dL Hct (39.0-53.0) % MCHC (31.0-37.0) g/dL Lymphocytes # (1.0-4.8) k/uL Sodium (137-145) mmol/L Chloride (98-107) mmol/L Carbon Dioxide (22-30) mmol/L BUN (9-20) mg/dL Creatinine (0.66-1.25) mg/dL Glucose (74-99) mg/dL POC Glucose (mg/dL) 559 H* 426 H 208 H (70-110) mg/dL Plasma Lactic Acid Chepe (0.7-2.0) mmol/L Phosphorus (2.5-4.5) mg/dL Alkaline Phosphatase (38-126) U/L Total Protein (6.3-8.2) g/dL Albumin (3.5-5.0) g/dL
--- NOTE | 2024-12-08 11:59 | P.CRDCN ---
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 We have been asked to evaluate the patient for new onset of A-fib with RVR. Patient was recently hospitalized underwent CTA of the chest positive for PE and was found to have a large mediastinal mass extending into the right hilum. He subsequently underwent bronchoscopy pathology was positive for small cell carcinoma. Patient states that he came into the hospital because he is having trouble with his heart. He states he has trouble with breathing and trouble with balance. He states he fell and he could not get up. He denies any history of atrial fibrillation. Blood pressure 91/58, heart rate 75, pulse ox 97% on 4 L nasal cannula. Patient is seen today in the emergency center waiting for a bed on the cardiac stepdown unit. Patient is status post 1 L of IV fluid bolus, Cardizem 15 mg bolus followed by drip at 5 mg/h. -EKG: Sinus rhythm with rate 117 bpm, -Chest x-ray: Complete opacification of the right upper lobe likely due to sequelae of obstructing mediastinal mass described on CT 11/21/2024 -Laboratory studies: Hemoglobin 10.4. Sodium 128 potassium 4.9, BUN 26, creatinine initially 1.42 now 1.39. Blood sugar 558. Lactic acid 2.4 now 1.7. Troponin 0.019. proBNP 6220. TSH 1.48. Cepheid viral panel not detected. -Home cardiac medications: Eliquis 5 mg twice daily. Review Of Systems: At the time of my exam: CONSTITUTIONAL: Denies fever or chills. HEENT: Denies blurred vision, vision changes, or eye pain. Denies hemoptysis CARDIOVASCULAR: Denies chest pain. Denies orthopnea. Denies PND. Denies palpitations RESPIRATORY: Denies shortness of breath. GASTROINTESTINAL: Denies abdominal pain. Denies nausea or vomiting. HEMATOLOGIC: Denies bleeding disorders. GENITOURINARY: Denies any blood in urine. SKIN: Denies puritis. Denies rash. Physical examination: Gen: This is a 79-year-old male in no acute distress VS: reviewed HEENT: Head is atraumatic, normocephalic. Pupils equal, round. Sclerae is anicteric. NECK: Supple. No JVD. LUNGS: Clear to auscultation. No wheezes or rhonchi. No intercostal retr actions. HEART: Regular rate and rhythm. ABDOMEN: Soft No tenderness. EXTREMITIES: No pedal edema. No calf tenderness. NEUROLOGICAL: Patient is awake, alert and oriented x3. Assessment: Sinus tachycardia Atrial fibrillation has been ruled out Acute on chronic heart failure, unknown if diastolic or systolic Hyponatremia Lactic acidosis Left-sided pulmonary emboli on Eliquis Small cell lung cancer new diagnosis. Patient has not followed up with pulmonary medicine or oncology for results of pathology. COPD Tobacco use and dependence Plan: Resume Eliquis Discontinue Cardizem drip Discontinue IV fluids Give patient IV Lasix 40 mg x 1 Obtain 2-D echocardiogram and Doppler study to assess cardiac structure and function Smoking cessation. Patient will be provided the [place] quit line information at discharge. Further recommendations to follow based upon clinical course Thank you kindly for this consultation. Nurse practitioner note has been reviewed, I agree with documented findings and plan of care. Patient was seen and examined. Past Medical History Past Medical History: COPD, Diabetes Mellitus, Hypertension Additional Past Medical History / Comment(s): "I take a lot of medication, I don't know what I take it for" History of Any Multi-Drug Resistant Organisms: None Reported Past Surgical History: Back Surgery, Hernia Repair, Tonsillectomy Additional Past Surgical History / Comment(s): neck surgery Past Psychological History: No Psychological Hx Reported Smoking Status: Current every day smoker Past Alcohol Use History: None Reported Past Drug Use History: None Reported, Marijuana Medications and Allergies Home Medications Medication Instructions Recorded Confirmed Type Albuterol Sulfate [Albuterol 1 puff INHALATION RT-Q4H PRN 11/22/24 12/07/24 History Sulfate Hfa] FLUoxetine HCL [PROzac] 10 mg PO TID 11/22/24 12/07/24 History Gabapentin [Neurontin] 100 mg PO TID 11/22/24 12/07/24 History Mv-Min/Folic/K1/Lycopen/Lutein 1 tab PO DAILY 11/22/24 12/07/24 History [Centrum Silver Men Tablet] QUEtiapine [SEROquel] 25 mg PO BID 11/22/24 12/07/24 History Zonisamide [Zonegran] 50 mg PO BID 11/22/24 12/07/24 History Zonisamide [Zonegran] 100 mg PO BID 11/22/24 12/07/24 History Ipratropium-Albuterol Nebulize 3 ml INHALATION TID #90 ml 11/23/24 12/07/24 Rx [Duoneb 0.5 mg-3 mg/3 ml Soln] Apixaban [Eliquis] 5 mg PO BID 12/07/24 12/07/24 History Budesonide-Formot 160-4.5 Mcg 2 puff INHALATION RT-BID 12/07/24 12/07/24 History [Symbicort 160-4.5 Mcg Inhaler] Allergies Allergy/AdvReac Type Severity Reaction Status Date / Time amoxicillin Allergy Unknown Verified 12/07/24 19:03 Penicillins Allergy Unknown Verified 12/07/24 19:03 Physical Exam Vitals: Vital Signs Temp Pulse Resp BP Pulse Ox 12/08/24 07:42 100 12/08/24 05:27 75 19 91/58 97 12/08/24 04:04 89 12/08/24 03:54 91 12/08/24 03:30 89 16 112/84 98 12/08/24 02:30 97 15 107/55 99 12/08/24 01:30 98 17 79/40 97 12/08/24 00:00 70 18 96/63 96 12/07/24 21:12 97.8 F 115 H 19 84/56 97 12/07/24 20:10 112 H 15 93/65 97 12/07/24 19:51 112 H 12/07/24 19:41 109 H 12/07/24 17:15 24 12/07/24 16:56 98.1 F 121 H 20 108/69 93 L Intake and Output 12/07/24 12/08/24 12/08/24 22:59 06:59 14:59 Other: Weight 99.79 kg Results 12/08/24 03:50 12/08/24 03:50 Cardiac Enzymes 12/07/24 12/07/24 12/08/24 Range/Units 17:02 17:02 03:50 AST 28 21 (17-59) U/L Troponin I 0.019 (0.000-0.034) ng/mL Coagulation 12/07/24 Range/Units 17:02 PT 10.9 (10.0-12.5) sec APTT 24.9 (22.0-30.0) sec CBC 12/07/24 12/08/24 Range/Units 17:02 03:50 WBC 8.5 5.1 (3.8-10.6) k/uL RBC 4.11 L 3.49 L (4.30-5.90) m/uL Hgb 11.8 L 10.4 L (13.0-17.5) gm/dL Hct 39.1 34.0 L (39.0-53.0) % Plt Count 334 320 (150-450) k/uL Comprehensive Metabolic Panel 12/07/24 12/08/24 Range/Units 17: 03:50 Sodium 132 L 128 L (137-145) mmol/L Potassium 4.6 4.9 (3.5-5.1) mmol/L Chloride 97 L 99 (98-107) mmol/L Carbon Dioxide 21 L 22 (22-30) mmol/L BUN 25 H 26 H (9-20) mg/dL Creatinine 1.42 H 1.39 H (0.66-1.25) mg/dL Glucose 256 H 558 H* (74-99) mg/dL Calcium 9.2 8.6 (8.4-10.2) mg/dL AST 28 21 (17-59) U/L ALT 28 25 (4-49) U/L Alkaline Phosphatase 140 H 130 H (38-126) U/L Total Protein 6.9 5.8 L (6.3-8.2) g/dL Albumin 3.6 3.0 L (3.5-5.0) g/dL Current Medications Generic Name Dose Route Start Last Admin Trade Name Freq PRN Reason Stop Dose Admin Albuterol/Ipratropium 3 ml 12/08/24 03:48 12/08/24 03:54 Ipratropium-Albuterol 3 Ml Neb INHALATION 3 ml RT-TID PRN Administration Shortness Of Breath Or Wheezing Dextrose/Water 25 ml 12/08/24 05:20 Dextrose 50% Syringe 50 Ml IVP PER PROTOCOL PRN Hypoglycemia Protocol Dextrose/Water 50 ml 12/08/24 05:20 Dextrose 50% Syringe 50 Ml IVP PER PROTOCOL PRN Hypoglycemia Protocol Sodium Chloride 1,000 mls @ 75 mls/hr 12/07/24 19:30 12/07/24 20:06 Saline 0.9% IV 75 mls/hr .[id number] JAIRO Administration Diltiazem HCl 125 mg/ Sodium 125 mls @ 5 mls/hr 12/07/24 19:30 12/07/24 20:04 Chloride IV 5 mg/hr .Q24H JAIRO 5 mls/hr Administration 5 MG/HR Insulin Human Lispro 0 unit 12/08/24 07:30 12/08/24 05:47 Insulin Lispro (Humalog) 100 Unit/Ml 10 Ml Vl SQ 12 unit ACHS JAIRO Administration Protocol Morphine Sulfate 4 mg 12/07/24 19:25 12/07/24 20:05 Morphine Sulfate 4 Mg/Ml Syringe IV 4 mg Q4HR PRN Administration Severe Pain (Scale 7 to 10) Naloxone HCl 0.2 mg 12/07/24 19:25 Naloxone 0.4 Mg/Ml 1 Ml Vial IV Q2M PRN Opioid Reversal Ondansetron HCl 4 mg 12/07/24 19:25 Ondansetron 4 Mg/2 Ml Vial IVP Q8HR PRN Nausea And Vomiting Intake and Output 12/07/24 12/08/24 12/08/24 22:59 06:59 14:59 Other: Weight 99.79 kg 12/08/24 03:50 12/08/24 03:50
[2024-12-08] MEDS: IPRATROPIUM-ALBUTEROL 3 ML NEB INHALATION SCH (12:38)
[2024-12-08 12:55] LABS: Glucose,Whole Blood 129 mg/dL (70-110)
[2024-12-08] MEDS: APIXABAN 5 MG TAB PO SCH (13:15)
[2024-12-08] MEDS: QUEtiapine 25 MG TAB PO SCH (13:15)
[2024-12-08] MEDS: SODIUM CHLORIDE 0.9% 1,000 ML IV SCH (13:32)
[2024-12-08] MEDS: FUROSEMIDE 10 MG/ML 4 ML VIAL IV STA ×2 (14:10→15:05)
[2024-12-08 16:33] LABS: Glucose,Whole Blood 255 mg/dL (70-110)
[2024-12-08] MEDS: GABAPENTIN 100 MG CAP PO SCH (17:21)
[2024-12-08] MEDS: FLUoxetine HCL 10 MG CAP PO SCH (17:21)
[2024-12-08] MEDS: SYMBICORT 160-4.5 MCG INHALER INHALATION SCH (19:30)
[2024-12-08 19:53] LABS: Glucose,Whole Blood 300 mg/dL (70-110)
[2024-12-09 06:23] LABS: Glucose,Whole Blood 211 mg/dL (70-110)
[2024-12-09] MEDS: INSULIN GLARGINE (LANTUS) 100 UNIT/ML SYR SQ SCH (06:40)
[2024-12-09 07:49] LABS: HCT 36.8 % (39.0-53.0); HGB 11.2 gm/dL (13.0-17.5); Hypochromasia Moderate; MCH 29.6 pg (25.0-35.0); MCHC 30.3 g/dL (31.0-37.0); MCV 97.4 fL (80.0-100.0); Mean Platelet Volume 7.1; Platelet Count 345 k/uL (150-450); RBC 3.78 m/uL (4.30-5.90); RDW 13.2 % (11.5-15.5); WBC 6.6 k/uL (3.8-10.6)
[2024-12-09 07:58] LABS: African American GFR (CKD) 53 (>60 ml/min/1.73 sqM); Anion Gap 7 mmol/L; Blood Urea Nitrogen 26 mg/dL (9-20); Calcium 8.7 mg/dL (8.4-10.2); Carbon Dioxide 25 mmol/L (22-30); Chloride 102 mmol/L (98-107); Glucose 220 mg/dL (74-99); Non-African American GFR(CKD) 46 (>60 ml/min/1.73 sqM); Potassium 4.5 mmol/L (3.5-5.1); Sodium 134 mmol/L (137-145)
[2024-12-09] MEDS: METOPROLOL SUCCINATE (ER) 25 MG TAB.ER.24H PO SCH (11:24)
[2024-12-09] MEDS: DAPAGLIFLOZIN PROPANEDIOL 10 MG TABLET PO SCH (11:25)
[2024-12-09] MEDS: LOSARTAN 25 MG TAB PO SCH (11:25)
[2024-12-09 11:31] LABS: Glucose,Whole Blood 201 mg/dL (70-110)
--- NOTE | 2024-12-09 13:21 | P.PN ---
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 We have been asked to evaluate the patient for new onset of A-fib with RVR. Patient was recently hospitalized underwent CTA of the chest positive for PE and was found to have a large mediastinal mass extending into the right hilum. He subsequently underwent bronchoscopy pathology was positive for small cell carcinoma. Patient states that he came into the hospital because he is having trouble with his heart. He states he has trouble with breathing and trouble with balance. He states he fell and he could not get up. He denies any history of atrial fibrillation. Blood pressure 91/58, heart rate 75, pulse ox 97% on 4 L nasal cannula. Patient is seen today in the emergency center waiting for a bed on the cardiac stepdown unit. Patient is status post 1 L of IV fluid bolus, Cardizem 15 mg bolus followed by drip at 5 mg/h. -EKG: Sinus rhythm with rate 117 bpm, -Chest x-ray: Complete opacification of the right upper lobe likely due to sequelae of obstructing mediastinal mass described on CT 11/21/2024 -Laboratory studies: Hemoglobin 10.4. Sodium 128 potassium 4.9, BUN 26, c reatinine initially 1.42 now 1.39. Blood sugar 558. Lactic acid 2.4 now 1.7. Troponin 0.019. proBNP 6220. TSH 1.48. Cepheid viral panel not detected. -Home cardiac medications: Eliquis 5 mg twice daily. 12/09/2024 Patient examined this morning at the bedside. Patient currently denies chest pain or pressure. He denies shortness of breath. 2D echo remains pending. Telemetry reveals sinus mechanism. Vital signs are stable. Patient's blood pressures have been borderline with a systolic in the 90s. PHYSICAL EXAM: VITAL SIGNS: Reviewed. GENERAL: Well-developed in no acute distress. NECK: Supple. No JVD or thyromegaly LUNGS: Respirations even and unlabored. Lungs essentially clear to auscultation bilaterally. HEART: Regular rate and rhythm. S1 and S2 heard. EXTREMITIES: Normal range of motion. No clubbing or cyanosis. Peripheral pulses intact. No lower extremity edema ASSESSMENT: Sinus tachycardia Atrial fibrillation has been ruled out Acute on chronic heart failure, unknown if diastolic or systolic Hyponatremia Lactic acidosis Left-sided pulmonary emboli on Eliquis Small cell lung cancer new diagnosis. Patient has not followed up with pulmonary medicine or oncology for results of pathology. COPD Tobacco use and dependence PLAN: Continue current cardiac medications including Eliquis Add Farxiga 10 mg daily, losartan 12.5 mg daily, metoprolol succinate 12.5 mg da priscilla Hold losartan and metoprolol for systolic blood pressure less than 90 No IV diuretics needed at this time Continue telemetry monitoring Continue to monitor blood pressure 2D echo remains pending. Await results Further recommendations pending patient course Nurse practitioner note has been reviewed by physician. Signing provider agrees with the documented findings, assessment, and plan of care documented by [employer] [employer] DIRECT[employer] as a scribe. Objective - Vital Signs Vital signs: Vital Signs Temp 97.9 F 12/09/24 11:20 Pulse 98 12/09/24 13:14 Resp 18 12/09/24 11:20 BP 99/65 12/09/24 11:20 Pulse Ox 98 12/09/24 11:20 FiO2 Intake & Output 12/08/24 12/09/24 12/09/24 18:59 06:59 18:59 Intake Total 222 340 Output Total 125 Balance 222 -125 340 Weight 99.79 kg 98.7 kg Intake: Oral 222 340 Output: Urine 125 Other: Voiding Method Urinal Urinal Urinal - Labs CBC & Chem 7: 12/09/24 06:26 12/09/24 06:26 Labs: Abnormal Lab Results - Last 24 Hours (Table) 12/08/24 12/08/24 12/09/24 Range/Units 16:32 19:52 06:19 RBC (4.30-5.90) m/uL Hgb (13.0-17.5) gm/dL Hct (39.0-53.0) % MCHC (31.0-37.0) g/dL Sodium (137-145) mmol/L BUN (9-20) mg/dL Creatinine (0.66-1.25) mg/dL Glucose (74-99) mg/dL POC Glucose (mg/dL) 255 H 300 H 211 H (70-110) mg/dL Hemoglobin A1c (<=6.0) % 12/09/24 12/09/24 12/09/24 Range/Units 06:26 06:26 06:26 RBC 3.78 L (4.30-5.90) m/uL Hgb 11.2 L (13.0-17.5) gm/dL Hct 36.8 L (39.0-53.0) % MCHC 30.3 L (31.0-37.0) g/dL Sodium 134 L (137-145) mmol/L BUN 26 H (9-20) mg/dL Creatinine 1.46 H (0.66-1.25) mg/dL Glucose 220 H (74-99) mg/dL POC Glucose (mg/dL) (70-110) mg/dL Hemoglobin A1c 10.8 H (<=6.0) % 12/09/24 Range/Units 11:30 RBC (4.30-5.90) m/uL Hgb (13.0-17.5) gm/dL Hct (39.0-53.0) % MCHC (31.0-37.0) g/dL Sodium (137-145) mmol/L BUN (9-20) mg/dL Creatinine (0.66-1.25) mg/dL Glucose (74-99) mg/dL POC Glucose (mg/dL) 201 H (70-110) mg/dL Hemoglobin A1c (<=6.0) %
[2024-12-09 16:18] LABS: Glucose,Whole Blood 264 mg/dL (70-110)
--- NOTE | 2024-12-09 17:42 | CA ---
Transthoracic Echo Report Name: Genoveva Almeida Age: 79 Gender: M : 1945 Exam Date: 12/09/2024 09:20 Exam Location: [facility] Ht (in): 69 Wt (lb): 220 Ordering Physician: Sadaf Cottrell Attending/Referring Phys: [id number], Ronit Label Drier Toshia Oliva RDCS Procedure CPT: Indications: recent PE, LVF Cardiac Hx: Technical Quality: Good Contrast 1: Definity Total Dose (mL): 2 Contrast 2: Total Dose (mL): MEASUREMENTS (Male / Female) Normal Values 2D ECHO LV Diastolic Diameter PLAX 5.6 cm 4.2 - 5.9 / 3.9 - 5.3 cm LV Systolic Diameter PLAX 4.7 cm IVS Diastolic Thickness 1.2 cm 0.6 - 1.0 / 0.6 - 0.9 cm LVPW Diastolic Thickness 1.1 cm 0.6 - 1.0 / 0.6 - 0.9 cm LV Relative Wall Thickness 0.4 RV Internal Dim ED PLAX 3.3 cm LVOT Diameter 2.1 cm LA Systolic Diameter LX 4.7 cm 3.0 - 4.0 / 2.7 - 3.8 cm LV Diastolic Volume MOD 4C 253.2 cm??? LV Systolic Volume MOD 4C 179.5 cm??? LV Ejection Fraction MOD 4C 29.1 % LV Cardiac Index MOD 4C 3392.5 cm???/min???m??? LV Diastolic Length 4C 9.3 cm LV Systolic Length 4C 8.7 cm LA Volume 60.0 cm??? 18 - 58 / 22 - 52 cm??? LA Volume Index 26.8 cm???/m??? 16 - 28 cm???/m??? DOPPLER AV Peak Velocity 237.5 cm/s AV Peak Gradient 22.6 mmHg AV Mean Velocity 179.8 cm/s AV Mean Gradient 14.2 mmHg AV Velocity Time Integral 43.8 cm LVOT Peak Velocity 24.3 cm/s LVOT Peak Gradient 0.2 mmHg LVOT Velocity Time Integral 12.7 cm LVOT Stroke Volume 43.3 cm??? LVOT Stroke Volume Index 20.1 ml/m??? LVOT Cardiac Index 1994.5 cm???/min???m??? AV Area Cont Eq vti 1.0 cm??? AV Area Cont Eq pk 0.3 cm??? MV Peak Velocity 140.5 cm/s MV Peak Gradient 7.9 mmHg MV Mean Velocity 73.4 cm/s MV Mean Gradient 2.8 mmHg MV Velocity Time Integral 27.5 cm MV Area PHT 3.1 cm??? MR Peak Velocity 434.1 cm/s MR Peak Gradient 75.4 mmHg TR Peak Velocity 294.0 cm/s TR Peak Gradient 34.6 mmHg Right Atrial Pressure 5.0 mmHg Pulmonary Artery Systolic Pressu 39.6 mmHg Right Ventricular Systolic Press 39.6 mmHg FINDINGS Left Ventricle Left ventricular ejection fraction is estimated at 15-20 %. Cannot exclude apical thrombus. Severe global hypokinesis.left ventricular cavity size normal. Mildly increased left ventricular wall thickness. Right Ventricle Normal right ventricular size and function. Mild pulmonary hypertension. Right Atrium Normal right atrial size. Left Atrium Moderately increased left atrial diameter. Mildly increased left atrial volume. Mildly increased left atrial area. Mitral Valve Mitral valve thickened. Moderate mitral annular calcification mild to moderate mitral regurgitation. No mitral stenosis. Aortic Valve Trileaflet aortic valve. Diffuse thickening (sclerosis) of the aortic valve cusps. Mild aortic regurgitation. Mild aortic stenosis with a peak gradient of 22 mmHg and a mean gradient of 14 mmHg. The gradient across the aortic valve could be underestimated because of the low flow. Tricuspid Valve Structurally normal tricuspid valve. No tricuspid stenosis. Mild tricuspid regurgitation. Pulmonic Valve Structurally normal pulmonic valve. No pulmonic stenosis. No pulmonic regurgitation. Pericardium No pericardial effusion. Aorta Normal size aortic root and proximal ascending aorta. CONCLUSIONS Definity ECHO contrast used for improved visualization of the endocardial borders (inadequate visualization of two or more contiguous segments). Severely impaired ventricular systolic function with global hypokinesis, cannot exclude apical thrombus Mild to moderate mitral regurgitation Severely calcified aortic valve with mild aortic regurgitation and a mean gradient of 14 mmHg. The gradient could be underestimated because of the low- flow Mild tricuspid regurgitation and mild pulmonary hypertension Previewed by: Dr. Caitlin Pryor MD (Electronically Signed) Final Date: 09 December 2024 17:41
[2024-12-09 19:45] LABS: Glucose,Whole Blood 223 mg/dL (70-110)
[2024-12-09] MEDS ORDERED: BUDESONIDE 0.5 MG/2 ML NEBU INHALATION SCH (20:00)
--- NOTE | 2024-12-10 05:34 | P.PN ---
Subjective Progress Note Date: 12/09/24 79-year-old male came in after a fall patient denied any shortness of breath at this time. Patient is found to be in atrial fibrillation with rapid unclear rate this is new onset A-fib patient is presently sinus rhythm rate controlled. Patient was eval by cardiology was started on Anticoagulation and rate control medications. Patient has elevated proBNP with chest x-ray did not show any c ongestive heart failure patient has been n.p.o. 6000 although patient appears to be volume depleted clinically patient is hypotensive and hyponatremic. Patient does not have any elevated JVD or pedal edema. Patient fall is not secondary to syncope but he slipped and fell. Patient was recently hospitalized and found to have a mass in the right upper lobe patient quit smoking does not have any hi story of COPD as per the patient does not use any oxygen at home. Patient is saturating 100% on 2 L. Patient is supposed to follow-up with Dr. Quarles as an outpatient but did not make an appointment yet, patient is supposed to follow-up with oncology as well as an outpatient. Is not a known diabetic but his blood sugars are in 500s I do not have any hemoglobin A1c available at this time. Patient was started on IV insulin. Patient also had mild lactic acidosis. Patient serum creatinine is 1.4 on admission came down to 1.3 patient has chronic history of chronic kidney disease. 12/09/2024 Patient is seen in follow-up today with cardiology following underwent 2D echo and read is pending at this time. Patient currently receiving a breathing treatment and reports continued shortness of breath. Patient is maintaining 98% on 2 L of oxygen. Patient does not normally wear oxygen outpatient. Wean FiO2 as tolerated. Patient also to be evaluated by physical therapy with generalized weakness. Hemoglobin A1c is 7.9 and diabetes is new onset as well. Patient is afebrile and denies chest pain or palpitations. Review of systems: Constitutional: No reports of fatigue, fever, or chills Cardiovascular: No reports of chest pain or palpitations Respiratory: reports of shortness of breath and continued cough GI: No reports of nausea, vomiting, or diarrhea : No reports of dysuria or retention Neurovascular: reports of generalized weakness All medications have been reviewed All other systems are negative except those mentioned in the HPI PHYSICAL EXAMINATION: GENERAL: The patient is alert and oriented x3, not in any acute distress. Well developed, well nourished. Elderly appearing, ill-appearing HEENT: Pupils are round and equally reacting to light. EOMI. No scleral icterus. No conjunctival pallor. Normocephalic, atraumatic. No pharyngeal erythema. No thyromegaly. CARDIOVASCULAR: S1 and S2 muffled, irregular PULMONARY: Diminished breath sounds bilaterally with some scattered rhonchi noted ABDOMEN: Soft, nontender, nondistended, normoactive bowel sounds. No palpable organomegaly. MUSCULOSKELETAL: No joint swelling or deformity. EXTREMITIES: No cyanosis, clubbing, or pedal edema. NEUROLOGICAL: Gross neurological examination did not reveal any focal deficits. Diffusely weak SKIN: No rashes. Assessment and plan -New onset atrial fibrillation: Patient was eval by cardiology, echocardiogram obtained and pending read and patient will be started on anticoagulation with Eliquis -Uncontrolled elevated blood sugars, new onset type 2 diabetes mellitus, hemoglobin A1c 7.9 and will continue with sliding scale and long-acting and adjust accordingly. -Acute renal failure: Probably due to intravascular depletion, patient was started on IV fluids -Hyponatremia hypoosmolar hyponatremia and hypovolemic hyponatremia: IV fluids as mentioned above -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 will need a biopsy as an outpatient -Possible COPD history presently not in acute exacerbation DVT prophylaxis: On Eliquis The impression and plan of care has been dictated by Bambi Carlos, Nurse Practitioner as directed. Dr. Aditi MD I have performed a history and examination and MDM of this patient, discussed the same with the dictator, and agree with the dictator's assessment and plan as written ,documented as a scribe. Based on total visit time, I have performed more than 50% of the visit. Objective - Vital Signs Vital signs: Vital Signs Temp 98.1 F 12/09/24 09:05 Pulse 74 12/09/24 09:05 Resp 19 12/09/24 09:05 BP 93/59 12/09/24 09:05 Pulse Ox 98 12/09/24 09:05 FiO2 Intake & Output 12/08/24 12/09/24 12/09/24 18:59 06:59 18:59 Intake Total 222 340 Output Total 125 Balance 222 -125 340 Weight 99.79 kg 98.7 kg Intake: Oral 222 340 Output: Urine 125 Other: Voiding Method Urinal Urinal - Labs CBC & Chem 7: 12/09/24 06:26 12/09/24 06:26 Labs: Abnormal Lab Results - Last 24 Hours (Table) 12/08/24 12/08/24 12/08/24 Range/Units 12:53 16:32 19:52 RBC (4.30-5.90) m/uL Hgb (13.0-17.5) gm/dL Hct (39.0-53.0) % MCHC (31.0-37.0) g/dL Sodium (137-145) mmol/L BUN (9-20) mg/dL Creatinine (0.66-1.25) mg/dL Glucose (74-99) mg/dL POC Glucose (mg/dL) 129 H 255 H 300 H (70-110) mg/dL 12/09/24 12/09/24 12/09/24 Range/Units 06:19 06:26 06:26 RBC 3.78 L (4.30-5.90) m/uL Hgb 11.2 L (13.0-17.5) gm/dL Hct 36.8 L (39.0-53.0) % MCHC 30.3 L (31.0-37.0) g/dL Sodium 134 L (137-145) mmol/L BUN 26 H (9-20) mg/dL Creatinine 1.46 H (0.66-1.25) mg/dL Glucose 220 H (74-99) mg/dL POC Glucose (mg/dL) 211 H (70-110) mg/dL
[2024-12-10 05:46] LABS: Glucose,Whole Blood 172 mg/dL (70-110)
[2024-12-10] MEDS: INSULIN GLARGINE (LANTUS) 100 UNIT/ML SYR SQ SCH (06:27)
[2024-12-10 08:11] LABS: African American GFR (CKD) 61 (>60 ml/min/1.73 sqM); Anion Gap 6 mmol/L; Blood Urea Nitrogen 23 mg/dL (9-20); Calcium 8.8 mg/dL (8.4-10.2); Carbon Dioxide 26 mmol/L (22-30); Chloride 102 mmol/L (98-107); Glucose 159 mg/dL (74-99); Non-African American GFR(CKD) 53 (>60 ml/min/1.73 sqM); Potassium 4.2 mmol/L (3.5-5.1); Sodium 134 mmol/L (137-145)
[2024-12-10 11:31] LABS: Glucose,Whole Blood 225 mg/dL (70-110)
--- NOTE | 2024-12-10 14:57 | P.PN ---
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 We have been asked to evaluate the patient for new onset of A-fib with RVR. Patient was recently hospitalized underwent CTA of the chest positive for PE and was found to have a large mediastinal mass extending into the right hilum. He subsequently underwent bronchoscopy pathology was positive for small cell carcinoma. Patient states that he came into the hospital because he is having trouble with his heart. He states he has trouble with breathing and trouble with balance. He states he fell and he could not get up. He denies any history of atrial fibrillation. Blood pressure 91/58, heart rate 75, pulse ox 97% on 4 L nasal cannula. Patient is seen today in the emergency center waiting for a bed on the cardiac stepdown unit. Patient is status post 1 L of IV fluid bolus, Cardizem 15 mg bolus followed by drip at 5 mg/h. -EKG: Sinus rhythm with rate 117 bpm, -Chest x-ray: Complete opacification of the right upper lobe likely due to sequelae of obstructing mediastinal mass described on CT 11/21/2024 -Laboratory studies: Hemoglobin 10.4. Sodium 128 potassium 4.9, BUN 26, c reatinine initially 1.42 now 1.39. Blood sugar 558. Lactic acid 2.4 now 1.7. Troponin 0.019. proBNP 6220. TSH 1.48. Cepheid viral panel not detected. -Home cardiac medications: Eliquis 5 mg twice daily. 12/09/2024 Patient examined this morning at the bedside. Patient currently denies chest pain or pressure. He denies shortness of breath. 2D echo remains pending. Telemetry reveals sinus mechanism. Vital signs are stable. Patient's blood pressures have been borderline with a systolic in the 90s. 12/10/2024 Patient examined this morning to bedside. Patient currently denies chest pain o r pressure. He reports mild shortness of breath. Blood pressures remain low with a systolic in the 90s. Echocardiogram completed revealing ejection fraction 15 to 20%, cannot exclude apical thrombus, severe global hypokinesis of left ventricle. Mild pulmonary hypertension. Mild to moderate MR, mild AR, moderate aortic stenosis with peak gradient 22 mmHg mean gradient 14 mmHg, mild tricuspid regurgitation PHYSICAL EXAM: VITAL SIGNS: Reviewed. GENERAL: Well-developed in no acute distress. NECK: Supple. No JVD or thyromegaly LUNGS: Respirations even and unlabored. Lungs essentially clear to auscultation bilaterally. HEART: Regular rate and rhythm. S1 and S2 heard. EXTREMITIES: Normal range of motion. No clubbing or cyanosis. Peripheral pulses intact. No lower extremity edema ASSESSMENT: Sinus tachycardia Atrial fibrillation has been ruled out Acute on chronic heart failure with reduced EF, currently euvolemic Cardiomyopathy, 15 to 20%, ischemic versus nonischemic Possible apical thrombus Valvular heart disease including mild to moderate MR, mild AR, moderate aortic stenosis, mild TR Hyponatremia Lactic acidosis Recent diagnosis of left-sided pulmonary emboli on Eliquis Small cell lung cancer new diagnosis. Patient has not followed up with pulmonary medicine or oncology for results of pathology. COPD Tobacco use and dependence PLAN: Continue current cardiac medications including Eliquis, Farxiga, losartan, and metoprolol Increase losartan to 25 mg daily Hold cardiac medications for systolic blood pressure less than 85 Continue telemetry monitoring Continue to monitor blood pressure Further recommendations pending patient course Nurse practitioner note has been reviewed by physician. Signing provider agrees with the documented findings, assessment, and plan of care documented by INSULATION BOARD CALENDER OPERATOR as a scribe. Objective - Vital Signs Vital signs: Vital Signs Temp 98.4 F 12/10/24 12:00 Pulse 104 H 12/10/24 12:55 Resp 20 12/10/24 12:00 BP 94/57 12/10/24 12:00 Pulse Ox 95 12/10/24 12:00 FiO2 Intake & Output 12/09/24 12/10/24 12/10/24 18:59 06:59 18:59 Intake Total 576 237 190 Output Total 600 Balance 576 -363 190 Weight 89 kg 89 kg Intake: IV 10 Invasive Line 1 10 Oral 576 237 180 Output: Urine 600 Other: Voiding Method Urinal Urinal Urinal # Voids 3 1 # Bowel Movements 1 - Labs CBC & Chem 7: 12/09/24 06:26 12/10/24 07:12 Labs: Abnormal Lab Results - Last 24 Hours (Table) 12/09/24 12/09/24 12/10/24 Range/Units 16:16 19:44 05:44 Sodium (137-145) mmol/L BUN (9-20) mg/dL Creatinine (0.66-1.25) mg/dL Glucose (74-99) mg/dL POC Glucose (mg/dL) 264 H 223 H 172 H (70-110) mg/dL 12/10/24 12/10/24 Range/Units 07:12 11:29 Sodium 134 L (137-145) mmol/L BUN 23 H (9-20) mg/dL Creatinine 1.30 H (0.66-1.25) mg/dL Glucose 159 H (74-99) mg/dL POC Glucose (mg/dL) 225 H (70-110) mg/dL
[2024-12-10 16:26] LABS: Glucose,Whole Blood 192 mg/dL (70-110)
[2024-12-10] MEDS: ACETAMINOPHEN TAB 325 MG TAB PO PRN (18:25)
[2024-12-10 20:26] LABS: Glucose,Whole Blood 292 mg/dL (70-110)
[2024-12-11 05:51] LABS: Glucose,Whole Blood 183 mg/dL (70-110)
--- NOTE | 2024-12-11 05:54 | P.PN ---
Subjective Progress Note Date: 12/10/24 79-year-old male came in after a fall patient denied any shortness of breath at this time. Patient is found to be in atrial fibrillation with rapid unclear rate this is new onset A-fib patient is presently sinus rhythm rate controlled. Patient was eval by cardiology was started on Anticoagulation and rate control medications. Patient has elevated proBNP with chest x-ray did not show any congestive heart failure patient has been n.p.o. 6000 although patient appears to be volume depleted clinically patient is hypotensive and hyponatremic. Patient does not have any elevated JVD or pedal edema. Patient fall is not secondary to syncope but he slipped and fell. Patient was recently hospitalized and found to have a mass in the right upper lobe patient quit smoking does not have any history of COPD as per the patient does not use any oxygen at home. Patient is saturating 100% on 2 L. Patient is supposed to follow-up with Dr. Quarles as an outpatient but did not make an appointment yet, patient is supposed to follow-up with oncology as well as an outpatient. Is not a known diabetic but his blood sugars are in 500s I do not have any hemoglobin A1c available at this time. Patient was started on IV insulin. Patient also had mild lactic acidosis. Patient serum creatinine is 1.4 on admission came down to 1.3 patient has chronic history of chronic kidney disease. 12/09/2024 Patient is seen in follow-up today with cardiology following underwent 2D echo and read is pending at this time. Patient currently receiving a breathing treatment and reports continued shortness of breath. Patient is maintaining 98% on 2 L of oxygen. Patient does not normally wear oxygen outpatient. Wean FiO2 as tolerated. Patient also to be evaluated by physical therapy with generalized weakness. Hemoglobin A1c is 7.9 and diabetes is new onset as well. Patient is afebrile and denies chest pain or palpitations. 12/10/2024 Patient is seen in follow-up today and 2D echo was noted to be 10 to 15% EF. Cardiology following making adjustments to medications and blood pressures have been on the lower side. Patient continues to have some wheezing noted maintained on breathing treatments as well as supplemental oxygen. Encouraged the patient to get up more frequently and sit up in the chair. PT/OT therapy is evaluate the patient recommending rehab and patient is agreeable. Continue monitoring Accu-Cheks ACHS and will adjust accordingly. Review of systems: Constitutional: No reports of fatigue, fever, or chills Cardiovascular: No reports of chest pain or palpitations Respiratory: reports of shortness of breath and continued cough GI: No reports of nausea, vomiting, or diarrhea : No reports of dysuria or retention Neurovascular: reports of generalized weakness All medications have been reviewed PHYSICAL EXAMINATION: GENERAL: The patient is lethargic but arousable, alert and oriented x3, not in any acute distress. Well developed, well nourished. Elderly appearing, ill-appearing HEENT: Pupils are round and equally reacting to light. EOMI. No scleral icterus. No conjunctival pallor. Normocephalic, atraumatic. No pharyngeal erythema. No thyromegaly. CARDIOVASCULAR: S1 and S2 muffled, irregular PULMONARY: Diminished breath sounds bilaterally with some scattered rhonchi no haley ABDOMEN: Soft, nontender, nondistended, normoactive bowel sounds. No palpable organomegaly. MUSCULOSKELETAL: No joint swelling or deformity. EXTREMITIES: No cyanosis, clubbing, or pedal edema. NEUROLOGICAL: Gross neurological examination did not reveal any focal deficits. Diffusely weak SKIN: No rashes. Assessment and plan -New onset atrial fibrillation: Patient was eval by cardiology, echocardiogram revealed an EF of 10 to 15%, patient is continued on Eliquis -Uncontrolled elevated blood sugars, new onset type 2 diabetes mellitus, hemoglobin A1c 7.9 and will continue with sliding scale and long-acting and adjust accordingly. -Acute renal failure: Probably due to intravascular depletion, improving -Hyponatremia hypoosmolar hyponatremia and hypovolemic hyponatremia -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 will need a biopsy as an outpatient -Possible COPD history presently not in acute exacerbation -Generalized weakness with gait dysfunction, patient evaluated by physical therapy recommending rehab and patient is agreeable. Patient will be going to rehab on discharge DVT prophylaxis: On Eliquis GI prophylaxis Full code The impression and plan of care has been dictated by Bambi Carlos, Nurse Practitioner as directed. Dr. Aditi MD I have performed a history and examination and MDM of this patient, discussed the same with the dictator, and agree with the dictator's assessment and plan as written ,documented as a scribe. Based on total visit time, I have performed more than 50% of the visit. Objective - Vital Signs Vital signs: Vital Signs Temp 97.4 F L 12/10/24 08:59 Pulse 89 12/10/24 08:59 Resp 17 12/10/24 08:59 BP 99/59 12/10/24 08:59 Pulse Ox 99 12/10/24 08:59 FiO2 Intake & Output 12/09/24 12/10/24 12/10/24 18:59 06:59 18:59 Intake Total 576 237 180 Output Total 600 Balance 576 -363 180 Weight 89 kg Intake: Oral 576 237 180 Output: Urine 600 Other: Voiding Method Urinal Urinal # Voids 3 1 # Bowel Movements 1 - Labs CBC & Chem 7: 12/09/24 06:26 12/10/24 07:12 Labs: Abnormal Lab Results - Last 24 Hours (Table) 12/09/24 12/09/24 12/09/24 Range/Units 06:26 11:30 16:16 Sodium (137-145) mmol/L BUN (9-20) mg/dL Creatinine (0.66-1.25) mg/dL Glucose (74-99) mg/dL POC Glucose (mg/dL) 201 H 264 H (70-110) mg/dL Hemoglobin A1c 10.8 H (<=6.0) % 12/09/24 12/10/24 12/10/24 Range/Units 19:44 05:44 07:12 Sodium 134 L (137-145) mmol/L BUN 23 H (9-20) mg/dL Creatinine 1.30 H (0.66-1.25) mg/dL Glucose 159 H (74-99) mg/dL POC Glucose (mg/dL) 223 H 172 H (70-110) mg/dL Hemoglobin A1c (<=6.0) %
[2024-12-11 08:05] LABS: Basophils % (A) 0 %; Eosinophils % (A) 1 %; HCT 42.9 % (39.0-53.0); HGB 12.9 gm/dL (13.0-17.5); Hypochromasia Slight; Lymphocytes # (A) 1.1 k/uL (1.0-4.8); Lymphocytes % (A) 19 %; MCH 29.1 pg (25.0-35.0); MCHC 30.1 g/dL (31.0-37.0); MCV 96.6 fL (80.0-100.0); Mean Platelet Volume 7.3; Monocytes # (A) 0.3 k/uL (0-1.0); Monocytes % (A) 5 %; Neutrophils # (A) 4.2 k/uL (1.3-7.7); Neutrophils % (A) 74 %; Platelet Count 391 k/uL (150-450); RBC 4.45 m/uL (4.30-5.90); RDW 13.4 % (11.5-15.5); WBC 5.7 k/uL (3.8-10.6)
[2024-12-11 08:15] LABS: African American GFR (CKD) 63 (>60 ml/min/1.73 sqM); Anion Gap 7 mmol/L; Blood Urea Nitrogen 25 mg/dL (9-20); Calcium 9.2 mg/dL (8.4-10.2); Carbon Dioxide 30 mmol/L (22-30); Chloride 99 mmol/L (98-107); Glucose 142 mg/dL (74-99); Non-African American GFR(CKD) 55 (>60 ml/min/1.73 sqM); Potassium 4.8 mmol/L (3.5-5.1); Sodium 136 mmol/L (137-145)
[2024-12-11] MEDS: LOSARTAN 25 MG TAB PO SCH (08:17)
[2024-12-11 11:37] LABS: Glucose,Whole Blood 110 mg/dL (70-110)
--- NOTE | 2024-12-11 13:15 | P.PN ---
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 We have been asked to evaluate the patient for new onset of A-fib with RVR. Patient was recently hospitalized underwent CTA of the chest positive for PE and was found to have a large mediastinal mass extending into the right hilum. He subsequently underwent bronchoscopy pathology was positive for small cell carcinoma. Patient states that he came into the hospital because he is having trouble with his heart. He states he has trouble with breathing and trouble with balance. He states he fell and he could not get up. He denies any history of atrial fibrillation. Blood pressure 91/58, heart rate 75, pulse ox 97% on 4 L nasal cannula. Patient is seen today in the emergency center waiting for a bed on the cardiac stepdown unit. Patient is status post 1 L of IV fluid bolus, Cardizem 15 mg bolus followed by drip at 5 mg/h. -EKG: Sinus rhythm with rate 117 bpm, -Chest x-ray: Complete opacification of the right upper lobe likely due to sequelae of obstructing mediastinal mass described on CT 11/21/2024 -Laboratory studies: Hemoglobin 10.4. Sodium 128 potassium 4.9, BUN 26, c reatinine initially 1.42 now 1.39. Blood sugar 558. Lactic acid 2.4 now 1.7. Troponin 0.019. proBNP 6220. TSH 1.48. Cepheid viral panel not detected. -Home cardiac medications: Eliquis 5 mg twice daily. 12/09/2024 Patient examined this morning at the bedside. Patient currently denies chest pain or pressure. He denies shortness of breath. 2D echo remains pending. Telemetry reveals sinus mechanism. Vital signs are stable. Patient's blood pressures have been borderline with a systolic in the 90s. 12/10/2024 Patient examined this morning to bedside. Patient currently denies chest pain o r pressure. He reports mild shortness of breath. Blood pressures remain low with a systolic in the 90s. Echocardiogram completed revealing ejection fraction 15 to 20%, cannot exclude apical thrombus, severe global hypokinesis of left ventricle. Mild pulmonary hypertension. Mild to moderate MR, mild AR, moderate aortic stenosis with peak gradient 22 mmHg mean gradient 14 mmHg, mild tricuspid regurgitation 12/12/2023 Patient examined this morning the bedside. Patient is resting comfortably in bed. No complaints of chest pain or shortness of breath. Vital signs are stable. PHYSICAL EXAM: VITAL SIGNS: Reviewed. GENERAL: Well-developed in no acute distress. NECK: Supple. No JVD or thyromegaly LUNGS: Respirations even and unlabored. Lungs essentially clear to auscultation bilaterally. HEART: Regular rate and rhythm. S1 and S2 heard. EXTREMITIES: Normal range of motion. No clubbing or cyanosis. Peripheral pulses intact. No lower extremity edema ASSESSMENT: Sinus tachycardia Atrial fibrillation has been ruled out Acute on chronic heart failure with reduced EF, currently euvolemic Cardiomyopathy, 15 to 20%, ischemic versus nonischemic Possible apical thrombus Valvular heart disease including mild to moderate MR, mild AR, moderate aortic stenosis, mild TR Hyponatremia Lactic acidosis Recent diagnosis of left-sided pulmonary emboli on Eliquis Small cell lung cancer new diagnosis. Patient has not followed up with pulmonary medicine or oncology for results of pathology. COPD Tobacco use and dependence PLAN: Continue current cardiac medications including Eliquis, Farxiga, losartan, and metoprolol Hold cardiac medications for systolic blood pressure less than 85 Continue telemetry monitoring Continue to monitor blood pressure Further recommendations pending patient course Nurse practitioner note has been reviewed by physician. Signing provider agrees with the documented findings, assessment, and plan of care documented by SPRING UPHOLSTERER as a scribe. Objective - Vital Signs Vital signs: Vital Signs Temp 98.2 F 12/11/24 11:28 Pulse 90 12/11/24 11:28 Resp 19 12/11/24 11:30 BP 101/70 12/11/24 11:28 Pulse Ox 96 12/11/24 11:30 FiO2 Intake & Output 12/10/24 12/11/24 12/11/24 18:59 06:59 18:59 Intake Total 550 240 Output Total 900 700 Balance -350 -700 240 Weight 89 kg 87 kg Intake: IV 10 Invasive Line 1 10 Oral 540 240 Output: Urine 900 700 Other: Voiding Method External Catheter External Catheter External Catheter - Labs CBC & Chem 7: 12/11/24 07:35 12/11/24 07:35 Labs: Abnormal Lab Results - Last 24 Hours (Table) 03/04/25 03/04/25 03/05/25 Range/Units 16:24 20:25 05:50 Hgb (13.0-17.5) gm/dL MCHC (31.0-37.0) g/dL Sodium (137-145) mmol/L BUN (9-20) mg/dL Creatinine (0.66-1.25) mg/dL Glucose (74-99) mg/dL POC Glucose (mg/dL) 192 H 292 H 183 H (70-110) mg/dL 12/11/24 12/11/24 Range/Units 07:35 07:35 Hgb 12.9 L (13.0-17.5) gm/dL MCHC 30.1 L (31.0-37.0) g/dL Sodium 136 L (137-145) mmol/L BUN 25 H (9-20) mg/dL Creatinine 1.26 H (0.66-1.25) mg/dL Glucose 142 H (74-99) mg/dL POC Glucose (mg/dL) (70-110) mg/dL
[2024-12-11 16:21] LABS: Glucose,Whole Blood 119 mg/dL (70-110)
[2024-12-11 20:38] LABS: Glucose,Whole Blood 188 mg/dL (70-110)
[2024-12-11 22:55] LABS: Glucose,Whole Blood 67 mg/dL (70-110)
[2024-12-12 06:07] LABS: Glucose,Whole Blood 136 mg/dL (70-110)
--- NOTE | 2024-12-12 06:18 | P.PN ---
Subjective Progress Note Date: 12/11/24 79-year-old male came in after a fall patient denied any shortness of breath at this time. Patient is found to be in atrial fibrillation with rapid unclear rate this is new onset A-fib patient is presently sinus rhythm rate controlled. Patient was eval by cardiology was started on Anticoagulation and rate control medications. Patient has elevated proBNP with chest x-ray did not show any congestive heart failure patient has been n.p.o. 6000 although patient appears to be volume depleted clinically patient is hypotensive and hyponatremic. Patient does not have any elevated JVD or pedal edema. Patient fall is not secondary to syncope but he slipped and fell. Patient was recently hospitalized and found to have a mass in the right upper lobe patient quit smoking does not have any history of COPD as per the patient does not use any oxygen at home. Patient is saturating 100% on 2 L. Patient is supposed to follow-up with Dr. Quarles as an outpatient but did not make an appointment yet, patient is supposed to follow-up with oncology as well as an outpatient. Is not a known diabetic but his blood sugars are in 500s I do not have any hemoglobin A1c available at this time. Patient was started on IV insulin. Patient also had mild lactic acidosis. Patient serum creatinine is 1.4 on admission came down to 1.3 patient has chronic history of chronic kidney disease. 12/09/2024 Patient is seen in follow-up today with cardiology following underwent 2D echo and read is pending at this time. Patient currently receiving a breathing treatment and reports continued shortness of breath. Patient is maintaining 98% on 2 L of oxygen. Patient does not normally wear oxygen outpatient. Wean FiO2 as tolerated. Patient also to be evaluated by physical therapy with generalized weakness. Hemoglobin A1c is 7.9 and diabetes is new onset as well. Patient is afebrile and denies chest pain or palpitations. 12/10/2024 Patient is seen in follow-up today and 2D echo was noted to be 15-20% EF. Car diology following making adjustments to medications and blood pressures have been on the lower side. Patient continues to have some wheezing noted maintained on breathing treatments as well as supplemental oxygen. Encouraged the patient to get up more frequently and sit up in the chair. PT/OT therapy is evaluate the patient recommending rehab and patient is agreeable. Continue monitoring Accu-Cheks ACHS and will adjust accordingly. 12/11/2024 Patient is seen in follow-up today with cardiology following making adjustments to medications and discussing possible cardiac catheterization although recommending evaluation by oncology for recently diagnosed small cell lung carcinoma status post bronchoscopy with biopsy with pulmonary last month. Patient is reporting shortness of breath although no worsening and continues with significant weakness. Case management/social work following as physical therapy evaluated recommending rehab and patient was agreeable. Patient has been accepted at [facility] pending insurance authorization. Patient is currently afebrile with no reported chest pains or palpitations. Continue telemetry monitoring and will discuss further with consultations regarding treatment plan moving forward. Review of systems: Constitutional: No reports of fatigue, fever, or chills Cardiovascular: No reports of chest pain or palpitations Respiratory: reports of shortness of breath with no worsening GI: No reports of nausea, vomiting, or diarrhea : No reports of dysuria or retention Neurovascular: reports of generalized weakness All medications have been reviewed PHYSICAL EXAMINATION: GENERAL: The patient is more awake today, alert and oriented x3, not in any acute distress. Well developed, well nourished. Elderly appearing, ill- appearing HEENT: Pupils are round and equally reacting to light. EOMI. No scleral icterus. No conjunctival pallor. Normocephalic, atraumatic. No pharyngeal erythema. No thyromegaly. CARDIOVASCULAR: S1 and S2 muffled, irregular PULMONARY: Diminished breath sounds bilaterally with some scattered rhonchi noted, improved expiratory wheezing ABDOMEN: Soft, nontender, nondistended, normoactive bowel sounds. No palpable organomegaly. MUSCULOSKELETAL: No joint swelling or deformity. EXTREMITIES: No cyanosis, clubbing, or pedal edema. NEUROLOGICAL: Gross neurological examination did not reveal any focal deficits. Diffusely weak SKIN: No rashes. Assessment and plan -Possible new onset atrial fibrillation:, Likely sinus tachycardia, atrial fibrillation ruled out per cardiology -Cardiomyopathy, EF 15 to 20%, ischemic versus nonischemic, discussing possible cardiac catheterization after oncology evaluation for recently diagnosed Small cell carcinoma as there was also concerns for possible apical thrombus that could not be excluded -New onset diabetes mellitus, type II, uncontrolled with hyperglycemia, hemoglobin A1c 7.9, and will continue with sliding scale and long-acting and adjust accordingly. -Acute renal failure: Probably due to intravascular depletion, improving -Hyponatremia hypoosmolar hyponatremia -Right upper lobe mass status post recent bronchoscopy with recent diagnosis of small cell lung carcinoma, oncology consulted to discuss treatment versus overall prognosis -COPD history, presently not in acute exacerbation -Generalized weakness with gait dysfunction, patient evaluated by physical therapy recommending rehab and patient is agreeable. Patient will be going to rehab on discharge. [facility] DVT prophylaxis: On Eliquis GI prophylaxis Full code The impression and plan of care has been dictated by Bambi Carlos, Nurse Prac titioner as directed. Dr. Aditi MD I have performed a history and examination and MDM of this patient, discussed the same with the dictator, and agree with the dictator's assessment and plan as written ,documented as a scribe. Based on total visit time, I have performed more than 50% of the visit. Objective - Vital Signs Vital signs: Vital Signs Temp 98.0 F 12/12/24 04:00 Pulse 79 12/12/24 04:00 Resp 18 12/12/24 04:00 BP 90/52 12/12/24 04:00 Pulse Ox 98 12/12/24 04:00 FiO2 Intake & Output 12/11/24 12/11/24 12/12/24 06:59 18:59 06:59 Intake Total 660 Output Total 700 650 Balance -700 10 Weight 87 kg 84.5 kg Intake: Oral 660 Output: Urine 700 650 Other: Voiding Method External Catheter External Catheter External Catheter # Bowel Movements 1 - Labs CBC & Chem 7: 12/11/24 07:35 12/11/24 07:35 Labs: Abnormal Lab Results - Last 24 Hours (Table) 12/11/24 12/11/24 12/11/24 Range/Units 07:35 07:35 16:20 Hgb 12.9 L (13.0-17.5) gm/dL MCHC 30.1 L (31.0-37.0) g/dL Sodium 136 L (137-145) mmol/L BUN 25 H (9-20) mg/dL Creatinine 1.26 H (0.66-1.25) mg/dL Glucose 142 H (74-99) mg/dL POC Glucose (mg/dL) 119 H (70-110) mg/dL 12/11/24 12/11/24 12/12/24 Range/Units 20:34 22:53 06:02 Hgb (13.0-17.5) gm/dL MCHC (31.0-37.0) g/dL Sodium (137-145) mmol/L BUN (9-20) mg/dL Creatinine (0.66-1.25) mg/dL Glucose (74-99) mg/dL POC Glucose (mg/dL) 188 H 67 L 136 H (70-110) mg/dL
[2024-12-12 08:45] LABS: ALT 24 U/L (4-49); AST 27 U/L (17-59); African American GFR (CKD) 60 (>60 ml/min/1.73 sqM); Albumin 3.3 g/dL (3.5-5.0); Alkaline Phosphatase 122 U/L (38-126); Anion Gap 5 mmol/L; Blood Urea Nitrogen 26 mg/dL (9-20); Calcium 8.9 mg/dL (8.4-10.2); Carbon Dioxide 29 mmol/L (22-30); Chloride 101 mmol/L (98-107); Glucose 142 mg/dL (74-99); Non-African American GFR(CKD) 52 (>60 ml/min/1.73 sqM); Potassium 4.3 mmol/L (3.5-5.1); Sodium 135 mmol/L (137-145); Total Bilirubin 0.5 mg/dL (0.2-1.3); Total Protein 6.6 g/dL (6.3-8.2)
[2024-12-12] MEDS: METOPROLOL SUCCINATE (ER) 25 MG TAB.ER.24H PO STA (11:23)
[2024-12-12 11:50] LABS: Glucose,Whole Blood 154 mg/dL (70-110)
[2024-12-12 14:36] LABS: Glucose,Whole Blood 96 mg/dL (70-110)
--- NOTE | 2024-12-12 16:03 | P.PN ---
Subjective Progress Note Date: 12/12/24 79-year-old male came in after a fall patient denied any shortness of breath at this time. Patient is found to be in atrial fibrillation with rapid unclear rate this is new onset A-fib patient is presently sinus rhythm rate controlled. Patient was eval by cardiology was started on Anticoagulation and rate control medications. Patient has elevated proBNP with chest x-ray did not show any congestive heart failure patient has been n.p.o. 6000 although patient appears to be volume depleted clinically patient is hypotensive and hyponatremic. Patient does not have any elevated JVD or pedal edema. Patient fall is not secondary to syncope but he slipped and fell. Patient was recently hospitalized and found to have a mass in the right upper lobe patient quit smoking does not have any history of COPD as per the patient does not use any oxygen at home. Patient is saturating 100% on 2 L. Patient is supposed to follow-up with Dr. Quarles as an outpatient but did not make an appointment yet, patient is supposed to follow-up with oncology as well as an outpatient. Is not a known diabetic but his blood sugars are in 500s I do not have any hemoglobin A1c available at this time. Patient was started on IV insulin. Patient also had mild lactic acidosis. Patient serum creatinine is 1.4 on admission came down to 1.3 patient has chronic history of chronic kidney disease. 12/09/2024 Patient is seen in follow-up today with cardiology following underwent 2D echo and read is pending at this time. Patient currently receiving a breathing treatment and reports continued shortness of breath. Patient is maintaining 98% on 2 L of oxygen. Patient does not normally wear oxygen outpatient. Wean FiO2 as tolerated. Patient also to be evaluated by physical therapy with generalized weakness. Hemoglobin A1c is 7.9 and diabetes is new onset as well. Patient is afebrile and denies chest pain or palpitations. 12/10/2024 Patient is seen in follow-up today and 2D echo was noted to be 15-20% EF. Cardiology following making adjustments to medications and blood pressures have been on the lower side. Patient continues to have some wheezing noted maintained on breathing treatments as well as supplemental oxygen. Encouraged the patient to get up more frequently and sit up in the chair. PT/OT therapy is evaluate the patient recommending rehab and patient is agreeable. Continue monitoring Accu-Cheks ACHS and will adjust accordingly. 12/11/2024 Patient is seen in follow-up today with cardiology following making adjustments to medications and discussing possible cardiac catheterization although r ecommending evaluation by oncology for recently diagnosed small cell lung carcinoma status post bronchoscopy with biopsy with pulmonary last month. Patient is reporting shortness of breath although no worsening and continues with significant weakness. Case management/social work following as physical therapy evaluated recommending rehab and patient was agreeable. Patient has been accepted at [facility] pending insurance authorization. Patient is currently afebrile with no reported chest pains or palpitations. Continue telemetry monitoring and will discuss further with consultations regarding treatment plan moving forward. 12/12/2024 Evaluated in follow-up on the cardiac floor, he is sitting up in the chair. he is not having any Acute complaints at this time not reporting any discomfort or shortness of breath. Discussed with oncology that they have evaluate this patient his prior admission and patient is already set up with Dr. Brown in the office to establish care. He was initially planned to undergo PET scan outpatient but as patient is currently hospitalized oncology will proceed with staging during this admission and patient be going for a CT abdomen pelvis as well as a brain MRI. At this time oncology is recommending to proceed with any type of cardiac intervention if needed as they are unable to stage this patient without all the appropriate testing completed. Labs today reveal a sodium level of 135, BUN of 26 creatinine 1.33. He remains afebrile he is on room air with oxygen saturations of 97 to 98%. His blood pressure is marginal in the 90s to 80s systolic. Review of systems: Constitutional: No reports of fatigue, fever, or chills Cardiovascular: No reports of chest pain or palpitations Respiratory: reports of shortness of breath with no worsening GI: No reports of nausea, vomiting, or diarrhea : No reports of dysuria or retention Neurovascular: reports of generalized weakness All medications have been reviewed PHYSICAL EXAMINATION: GENERAL: The patient is more awake today, alert and oriented x3, not in any acute distress. Well developed, well nourished. Elderly appearing, ill- appearing HEENT: Pupils are round and equally reacting to light. EOMI. No scleral icterus. No conjunctival pallor. Normocephalic, atraumatic. No pharyngeal erythema. No thyromegaly. CARDIOVASCULAR: S1 and S2 muffled, irregular PULMONARY: Diminished breath sounds bilaterally with some scattered rhonchi noted, improved expiratory wheezing ABDOMEN: Soft, nontender, nondistended, normoactive bowel sounds. No palpable organomegaly. MUSCULOSKELETAL: No joint swelling or deformity. EXTREMITIES: No cyanosis, clubbing, or pedal edema. NEUROLOGICAL: Gross neurological examination did not reveal any focal deficits. Diffusely weak SKIN: No rashes. Assessment and plan -Possible new onset atrial fibrillation:, Likely sinus tachycardia, atrial fi brillation ruled out per cardiology -Cardiomyopathy, EF 15 to 20%, ischemic versus nonischemic, discussing possible cardiac catheterization after oncology evaluation for recently diagnosed Small cell carcinoma as there was also concerns for possible apical thrombus that could not be excluded -New onset diabetes mellitus, type II, uncontrolled with hyperglycemia, hemoglobin A1c 7.9, and will continue with sliding scale and long-acting and adjust accordingly. -Acute renal failure: Probably due to intravascular depletion, improving patient is also on losartan with decreased blood pressures this could be attributing to his creatinine and would recommend to hold the losartan we will leave this up to cardiology at this time. -Hyponatremia hypoosmolar hyponatremia -Right upper lobe mass status post recent bronchoscopy with recent diagnosis of small cell lung carcinoma, oncology with plans to complete staging while inpatient and patient will be going for a CT of the abdomen pelvis as well as a brain MRI. At this point they are recommending to proceed with any type of cardiac intervention that is warranted as they are unable to officially stage this patient as they do not have all the appropriate testing back yet. -COPD history, presently not in acute exacerbation -Generalized weakness with gait dysfunction, patient evaluated by physical therapy recommending rehab and patient is agreeable. Patient will be going to rehab on discharge. Patient will be going to [facility] DVT prophylaxis: On Eliquis GI prophylaxis Full code The impression and plan of care has been dictated by Shobha Tamez Nurse Practitioner as directed. Dr. Aditi MD I have performed a history and examination and MDM of this patient, discussed the same with the dictator, and agree with the dictator's assessment and plan as written ,documented as a scribe. Based on total visit time, I have performed more than 50% of the visit. Objective - Vital Signs Vital signs: Vital Signs Temp 98.8 F 12/12/24 15:37 Pulse 62 12/12/24 15:37 Resp 18 12/12/24 15:37 BP 85/59 12/12/24 15:37 Pulse Ox 97 12/12/24 15:37 FiO2 Intake & Output 12/11/24 12/12/24 12/12/24 18:59 06:59 18:59 Intake Total 660 450 Output Total 650 400 200 Balance 10 -400 250 Weight 84.5 kg Intake: IV 10 Invasive Line 2 10 Oral 660 440 Output: Urine 650 400 200 Other: Voiding Method External Catheter External Catheter External Catheter # Bowel Movements 1 1 - Labs CBC & Chem 7: 12/11/24 07:35 12/12/24 08:10 Labs: Abnormal Lab Results - Last 24 Hours (Table) 12/11/24 12/11/24 12/11/24 Range/Units 16:20 20:34 22:53 Sodium (137-145) mmol/L BUN (9-20) mg/dL Creatinine (0.66-1.25) mg/dL Glucose (74-99) mg/dL POC Glucose (mg/dL) 119 H 188 H 67 L (70-110) mg/dL Albumin (3.5-5.0) g/dL 12/12/24 12/12/24 12/12/24 Range/Units 06:02 08:10 11:49 Sodium 135 L (137-145) mmol/L BUN 26 H (9-20) mg/dL Creatinine 1.33 H (0.66-1.25) mg/dL Glucose 142 H (74-99) mg/dL POC Glucose (mg/dL) 136 H 154 H (70-110) mg/dL Albumin 3.3 L (3.5-5.0) g/dL Assessment and Plan Time with Patient: Less than 30
[2024-12-12 16:50] LABS: Glucose,Whole Blood 113 mg/dL (70-110)
--- NOTE | 2024-12-12 19:54 | P.CONS ---
History of Present Illness - Reason for Consult Consult date: 12/12/24 lung cancer Requesting physician: Bambi Carlos - Chief Complaint SOB, fall - History of Present Illness Patient is a 79-year-old male with a history of diabetes, hypertension and COPD, with previous history of nicotine dependence, approximately 15 pack years, quitting smoking in August 2024, and recent diagnosis of small cell carcinoma and was seen on consult on 11/22/24. Plan was outpt PET CT and brain MRI outpt to complete staging and f/u with Dr. Paramjit Martínez on 12/18. Patient was initially seen after presenting with progressing shortness of breath. Upon admit CTA chest showing left lung segmental and subsegmental pulmonary emboli without evidence of right heart strain. Large mediastinal mass measuring 7.9 x 5.3 cm, extending into the right hilum with abrupt cut off of the right upper lobe bronchus and subsequent atelectasis and consolidation of the right upper lobe. Additionally there was mediastinal adenopathy noted. Patient has been started on heparin drip and was discharged on Eliquis. Pt underwent bronch during last admit, and pathology was positive for small cell carcinoma. Patient presented to the emergency room after mechanical fall and reports he was feeling dizzy and short of breath at which time he presented for further evaluation. Patient was found to be in new onset atrial fibrillation. Cardiology was consulted and echocardiogram revealed EF 15 to 20%. BNP 6220. At today's visit patient is reporting he is feeling somewhat improved since admission. Review of Systems 10 point ROS is negative except as stated in the HPI Past Medical History Past Medical History: COPD, Diabetes Mellitus, Hypertension Additional Past Medical History / Comment(s): "I take a lot of medication, I don't know what I take it for" History of Any Multi-Drug Resistant Organisms: None Reported Past Surgical History: Back Surgery, Hernia Repair, Tonsillectomy Additional Past Surgical History / Comment(s): neck surgery Smoking Status: Former smoker Medications and Allergies Home Medications Medication Instructions Recorded Confirmed Type Albuterol Sulfate [Albuterol 1 puff INHALATION RT-Q4H PRN 11/22/24 12/07/24 History Sulfate Hfa] FLUoxetine HCL [PROzac] 10 mg PO TID 11/22/24 12/07/24 History Gabapentin [Neurontin] 100 mg PO TID 11/22/24 12/07/24 History Mv-Min/Folic/K1/Lycopen/Lutein 1 tab PO DAILY 11/22/24 12/07/24 History [Centrum Silver Men Tablet] QUEtiapine [SEROquel] 25 mg PO BID 11/22/24 12/07/24 History Zonisamide [Zonegran] 50 mg PO BID 11/22/24 12/07/24 History Zonisamide [Zonegran] 100 mg PO BID 11/22/24 12/07/24 History Ipratropium-Albuterol Nebulize 3 ml INHALATION TID #90 ml 11/23/24 12/07/24 Rx [Duoneb 0.5 mg-3 mg/3 ml Soln] Apixaban [Eliquis] 5 mg PO BID 12/07/24 12/07/24 History Budesonide-Formot 160-4.5 Mcg 2 puff INHALATION RT-BID 12/07/24 12/07/24 History [Symbicort 160-4.5 Mcg Inhaler] Allergies Allergy/AdvReac Type Severity Reaction Status Date / Time amoxicillin Allergy Unknown Verified 12/07/24 19:03 Penicillins Allergy Unknown Verified 12/07/24 19:03 Physical Exam Vitals: Vital Signs Temp Pulse Pulse Resp BP Pulse Ox 12/12/24 08:39 84 12/12/24 08:29 88 12/12/24 08:03 100 18 12/12/24 08:02 98.2 F 100 18 92/61 96 12/12/24 04:00 98.0 F 79 18 90/52 98 12/11/24 23:34 98.0 F 95 18 113/63 96 12/11/24 21:22 90 12/11/24 21:11 89 12/11/24 20:00 98.1 F 90 18 92/58 94 L 12/11/24 16:25 67 12/11/24 16:16 68 12/11/24 16:10 98.0 F 86 19 99/66 95 12/11/24 13:25 82 19 12/11/24 11:30 19 96 12/11/24 11:28 98.2 F 90 19 101/70 99 12/11/24 09:44 92 12/11/24 09:28 90 100 Intake and Output 12/11/24 12/12/24 12/12/24 22:59 06:59 14:59 Intake Total 240 Output Total 250 400 Balance -250 -400 240 Intake: Oral 240 Output: Urine 250 400 Other: Voiding Method External Catheter External Catheter External Catheter # Bowel Movements 1 1 Weight 84.5 kg - Constitutional General appearance: average body habitus, no acute distress - EENT Eyes: anicteric sclerae, EOMI ENT: hearing grossly normal - Respiratory breathing is even and unlabored - Cardiovascular skin warm and dry - Gastrointestinal General gastrointestinal: soft, no tenderness - Integumentary Integumentary: no cyanotic, no jaundiced - Neurologic Neurologic: CNII-XII intact - Musculoskeletal Musculoskeletal: strength equal bilaterally - Psychiatric Psychiatric: A&O x's 3 Results CBC & Chem 7: 12/11/24 07:35 12/12/24 08:10 Labs: Abnormal Lab Results - Last 24 Hours (Table) 12/11/24 12/11/24 12/11/24 Range/Units 16:20 20:34 22:53 Sodium (137-145) mmol/L BUN (9-20) mg/dL Creatinine (0.66-1.25) mg/dL Glucose (74-99) mg/dL POC Glucose (mg/dL) 119 H 188 H 67 L (70-110) mg/dL Albumin (3.5-5.0) g/dL 12/12/24 12/12/24 Range/Units 06:02 08:10 Sodium 135 L (137-145) mmol/L BUN 26 H (9-20) mg/dL Creatinine 1.33 H (0.66-1.25) mg/dL Glucose 142 H (74-99) mg/dL POC Glucose (mg/dL) 136 H (70-110) mg/dL Albumin 3.3 L (3.5-5.0) g/dL Assessment and Plan (1) Small cell carcinoma Current Visit: Yes Status: Acute Priority: High Code(s): C80.1 - MALIGNANT (PRIMARY) NEOPLASM, UNSPECIFIED SNOMED Code(s): 59543392403501245 (2) Acute exacerbation of chronic obstructive pulmonary disease Current Visit: Yes Status: Acute Priority: High Code(s): J44.1 - CHRONIC OBSTRUCTIVE PULMONARY DISEASE W (ACUTE) EXACERBATION SNOMED Code(s): 777154838 (3) Atrial fibrillation with rapid ventricular response Current Visit: Yes Status: Acute Priority: High Code(s): I48.91 - UNSPECIFIED ATRIAL FIBRILLATION SNOMED Code(s): 096511450766369 Plan: A-fib with RVR: Presented to the emergency room after mechanical fall and reports he was feeling dizzy and short of breath at which time he presented for further evaluation. -Patient was found to be in new onset atrial fibrillation. Cardiology was consulted and echocardiogram revealed EF 15 to 20%. BNP 6220. -Pt was being scheduled for outpt staging scans with PET CT and brain MRI but was readmitted prior to completion of scans. If pt has limited stage disease would be appropriate for any necessary cardiac interventions. If extensive stage disease, more conservative management could be considered. However, at this time until staging scans are completed, unable to comment on current disease state Small cell carcinoma: -Oncology as dicatted in the HPI -During previous admit CTA chest showing left lung segmental and subsegmental pulmonary emboli without evidence of right heart strain. Large mediastinal mass measuring 7.9 x 5.3 cm, extending into the right hilum with abrupt cut off of the right upper lobe bronchus and subsequent atelectasis and consolidation of the right upper lobe. Additionally there was mediastinal adenopathy noted. -Pathology was positive for small cell carcinoma. Diagnosis discussed with pt at todays visit -Plan was to obtain PET CT outpt and brain MRI to complete staging. Since pt is readmitted, will obtain CT AP and brain MRI while inpt -Scheduled for clinic f/u with Dr. Paramjit Martínez on 12/18 to further discuss treatment options and POC Case discussed with admitting team today
[2024-12-12 19:55] LABS: Glucose,Whole Blood 163 mg/dL (70-110)
[2024-12-13 06:07] LABS: Glucose,Whole Blood 139 mg/dL (70-110)
[2024-12-13 07:17] LABS: Basophils % (A) 0 %; Eosinophils # (A) 0.1 k/uL (0-0.7); Eosinophils % (A) 1 %; HCT 41.1 % (39.0-53.0); HGB 12.6 gm/dL (13.0-17.5); Hypochromasia Slight; Lymphocytes % (A) 16 %; MCH 29.4 pg (25.0-35.0); MCHC 30.7 g/dL (31.0-37.0); MCV 95.9 fL (80.0-100.0); Monocytes # (A) 0.3 k/uL (0-1.0); Monocytes % (A) 5 %; Neutrophils # (A) 4.5 k/uL (1.3-7.7); Neutrophils % (A) 76 %; Platelet Count 374 k/uL (150-450); RBC 4.28 m/uL (4.30-5.90); RDW 13.3 % (11.5-15.5); WBC 5.9 k/uL (3.8-10.6)
[2024-12-13 07:30] LABS: African American GFR (CKD) 67 (>60 ml/min/1.73 sqM); Anion Gap 9 mmol/L; Blood Urea Nitrogen 29 mg/dL (9-20); Calcium 9.2 mg/dL (8.4-10.2); Carbon Dioxide 24 mmol/L (22-30); Chloride 101 mmol/L (98-107); Glucose 129 mg/dL (74-99); Non-African American GFR(CKD) 58 (>60 ml/min/1.73 sqM); Potassium 4.6 mmol/L (3.5-5.1); Sodium 134 mmol/L (137-145)
[2024-12-13] MEDS: METOPROLOL SUCCINATE (ER) 25 MG TAB.ER.24H PO SCH (07:31)
[2024-12-13] MEDS: SPIRONOLACTONE 25 MG TAB PO SCH (11:16)
[2024-12-13 11:41] LABS: Glucose,Whole Blood 177 mg/dL (70-110)
[2024-12-13] MEDS: IOPAMIDOL CONTRAST (ORAL USE) VIAL PO PRN (12:30)
--- NOTE | 2024-12-13 14:40 | CT ---
EXAMINATION TYPE: CT abdomen pelvis w con DATE OF EXAM: 12/13/2024 2:20 PM COMPARISON: 11/21/2024. CLINICAL INDICATION: Male, 79 years old with history of small cell lung cancer, staging; Small cell l maritza ca, staging TECHNIQUE: Axial CT abdomen pelvis w con;Sagittal and coronal reformats were created on a separate w orkstation. Contrast used:80 mL of Isovue 300 with IV Contrast, (none if empty) Oral contrast used: with Oral Contrast (none if empty) CT DLP: 1425 mGycm, Automated exposure control for dose reduction was used. FINDINGS: LOWER CHEST: There is pneumomediastinum noted. Decrease in airspace consolidation seen on prior on . Groundglass opacities are seen in left lung base not seen on prior. Moderate coronary artery calcifications and aortic valve calcifications. Partially visualized subcarinal lymph node measuring up to 20 mm. ABDOMEN LIVER: Unremarkable GALLBLADDER AND BILE DUCTS: Unremarkable. PANCREAS: Unremarkable. SPLEEN: Unremarkable. ADRENAL GLANDS: Unremarkable. KIDNEYS AND URETERS: No evidence of hydronephrosis or renal calculus. The ureters are unremarkable. PELVIS BLADDER: No evidence for wall thickening or mass given limitations of exam. REPRODUCTIVE: Prostate is enlarged in size measuring 5.3 cm in transverse dimension. ABDOMEN & PELVIS STOMACH AND BOWEL: No evidence of bowel obstruction. The appendix is normal. rScattered colonic diver ticula. PERITONEUM/RETROPERITONEUM: No evidence of pneumoperitoneum or free fluid. VASCULATURE: Mild atherosclerotic calcifications are present throughout the abdominal aorta and its b ranches. No evidence of aortic aneurysm. MUSCULOSKELETAL: No acute osseous abnormalities. Severe disc degeneration changes are present through out the thoracolumbar spine. Grade 1 anterolisthesis of L4 and L5. The spinal canal through L4. LYMPH NODES: No gross evidence for lymphadenopathy. SOFT TISSUE/ABDOMINAL WALL: Left fat-containing inguinal hernia. IMPRESSION: 1. No evidence for lymphadenopathy or vascular diaphragm. 2. Pneumomediastinum correlate with history of recent surgical intervention. Findings are new from . 3. Subcarinal lymph node as seen on prior exam suspicious for malignancy 4. Moderate coronary artery and aortic valve calcifications. 5. Prostatomegaly, correlate with serum PSA. 6. Left fat-containing inguinal hernia. [facility], , 12/13/2024 2:37 PM
[2024-12-13 16:31] LABS: Glucose,Whole Blood 285 mg/dL (70-110)
[2024-12-13 20:12] LABS: Glucose,Whole Blood 113 mg/dL (70-110)
--- NOTE | 2024-12-13 20:12 | P.PN ---
Subjective Progress Note Date: 12/12/24 This is is a 79-year-old male patient with past medical history of recently diagnosed left-sided pulmonary emboli, mediastinal mass with right upper lobe collapse secondary to right hilar mass, COPD, tobacco use and dependence. We have been asked to evaluate the patient for new onset of A-fib with RVR. Patient was recently hospitalized underwent CTA of the chest positive for PE and was found to have a large mediastinal mass extending into the right hilum. He subsequently underwent bronchoscopy pathology was positive for small cell carcinoma. Patient states that he came into the hospital because he is having trouble with his heart. He states he has trouble with breathing and trouble with balance. He states he fell and he could not get up. He denies any history of atrial fibrillation. Blood pressure 91/58, heart rate 75, pulse ox 97% on 4 L nasal cannula. Patient is seen today in the emergency center waiting for a bed on the cardiac stepdown unit. Patient is status post 1 L of IV fluid bolus, Cardizem 15 mg bolus followed by drip at 5 mg/h. -EKG: Sinus rhythm with rate 117 bpm, -Chest x-ray: Complete opacification of the right upper lobe likely due to sequelae of obstructing mediastinal mass described on CT 11/21/2024 -Laboratory studies: Hemoglobin 10.4. Sodium 128 potassium 4.9, BUN 26, creatinine initially 1.42 now 1.39. Blood sugar 558. Lactic acid 2.4 now 1.7. Troponin 0.019. proBNP 6220. TSH 1.48. Cepheid viral panel not detected. -Home cardiac medications: Eliquis 5 mg twice daily. 12/09/2024 Patient examined this morning at the bedside. Patient currently denies chest pain or pressure. He denies shortness of breath. 2D echo remains pending. Telemetry reveals sinus mechanism. Vital signs are stable. Patient's blood pressures have been borderline with a systolic in the 90s. 12/10/2024 Patient examined this morning to bedside. Patient currently denies chest pain or pressure. He reports mild shortness of breath. Blood pressures remain low with a systolic in the 90s. Echocardiogram completed revealing ejection fraction 15 to 20%, cannot exclude apical thrombus, severe global hypokinesis of left ventricle. Mild pulmonary hypertension. Mild to moderate MR, mild AR, moderate aortic stenosis with peak gradient 22 mmHg mean gradient 14 mmHg, mild tricuspid regurgitation 12/12/2023 Patient examined this morning the bedside. Patient is resting comfortably in bed. No complaints of chest pain or shortness of breath. Vital signs are stable. 12/12/2020 Patient is seen and examined at bedside this a.m. Denies any new chest pain chest pressure shortness of breath. Appears euvolemic. Blood pressure is low normal however does not report any lightheadedness or dizziness. PHYSICAL EXAM: VITAL SIGNS: Reviewed. GENERAL: Well-developed in no acute distress. NECK: Supple. No JVD or thyromegaly LUNGS: Respirations even and unlabored. Lungs essentially clear to auscultation bilaterally. HEART: Regular rate and rhythm. S1 and S2 heard. EXTREMITIES: Normal range of motion. No clubbing or cyanosis. Peripheral pulses intact. No lower extremity edema ASSESSMENT: Sinus tachycardia Atrial fibrillation has been ruled out Acute on chronic heart failure with reduced EF, currently euvolemic Cardiomyopathy, 15 to 20%, ischemic versus nonischemic Possible apical thrombus Valvular heart disease including mild to moderate MR, mild AR, moderate aortic stenosis, mild TR Hyponatremia Lactic acidosis Recent diagnosis of left-sided pulmonary emboli on Eliquis Small cell lung cancer new diagnosis. Patient has not followed up with pulmonary medicine or oncology for results of pathology. COPD Tobacco use and dependence PLAN: Continue current cardiac medications including Eliquis, Farxiga, losartan, and metoprolol Hold cardiac medications for systolic blood pressure less than 85 Continue telemetry monitoring Continue to monitor blood pressure Further recommendations pending patient course Objective - Vital Signs Vital signs: Vital Signs Temp 98.6 F 12/13/24 19:31 Pulse 79 12/13/24 19:31 Resp 18 12/13/24 19:31 BP 86/57 12/13/24 19:31 Pulse Ox 94 L 12/13/24 19:31 FiO2 Intake & Output 12/13/24 12/13/24 12/14/24 06:59 18:59 06:59 Intake Total 20 378 Output Total 325 Balance -305 378 Weight 85.5 kg Intake: IV 20 20 Invasive Line 2 20 20 Oral 358 Output: Urine 325 Other: Voiding Method External Catheter External Catheter # Voids 1 # Bowel Movements 1 1 - Labs CBC & Chem 7: 12/13/24 06:59 12/13/24 06:59 Labs: Abnormal Lab Results - Last 24 Hours (Table) 12/13/24 12/13/24 12/13/24 Range/Units 05:59 06:59 06:59 RBC 4.28 L (4.30-5.90) m/uL Hgb 12.6 L (13.0-17.5) gm/dL MCHC 30.7 L (31.0-37.0) g/dL Sodium 134 L (137-145) mmol/L BUN 29 H (9-20) mg/dL Glucose 129 H (74-99) mg/dL POC Glucose (mg/dL) 139 H (70-110) mg/dL 12/13/24 12/13/24 Range/Units 11:39 16:29 RBC (4.30-5.90) m/uL Hgb (13.0-17.5) gm/dL MCHC (31.0-37.0) g/dL Sodium (137-145) mmol/L BUN (9-20) mg/dL Glucose (74-99) mg/dL POC Glucose (mg/dL) 177 H 285 H (70-110) mg/dL
[2024-12-13] MEDS: APIXABAN 5 MG TAB PO SCH (20:14)
--- NOTE | 2024-12-13 20:18 | P.PN ---
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 We have been asked to evaluate the patient for new onset of A-fib with RVR. Patient was recently hospitalized underwent CTA of the chest positive for PE and was found to have a large mediastinal mass extending into the right hilum. He subsequently underwent bronchoscopy pathology was positive for small cell carcinoma. Patient states that he came into the hospital because he is having trouble with his heart. He states he has trouble with breathing and trouble with balance. He states he fell and he could not get up. He denies any history of atrial fibrillation. Blood pressure 91/58, heart rate 75, pulse ox 97% on 4 L nasal cannula. Patient is seen today in the emergency center waiting for a bed on the cardiac stepdown unit. Patient is status post 1 L of IV fluid bolus, Cardizem 15 mg bolus followed by drip at 5 mg/h. -EKG: Sinus rhythm with rate 117 bpm, -Chest x-ray: Complete opacification of the right upper lobe likely due to sequelae of obstructing mediastinal mass described on CT 11/21/2024 -Laboratory studies: Hemoglobin 10.4. Sodium 128 potassium 4.9, BUN 26, creatinine initially 1.42 now 1.39. Blood sugar 558. Lactic acid 2.4 now 1.7. Troponin 0.019. proBNP 6220. TSH 1.48. Cepheid viral panel not detected. -Home cardiac medications: Eliquis 5 mg twice daily. 12/09/2024 Patient examined this morning at the bedside. Patient currently denies chest pain or pressure. He denies shortness of breath. 2D echo remains pending. Telemetry reveals sinus mechanism. Vital signs are stable. Patient's blood pressures have been borderline with a systolic in the 90s. 12/10/2024 Patient examined this morning to bedside. Patient currently denies chest pain or pressure. He reports mild shortness of breath. Blood pressures remain low with a systolic in the 90s. Echocardiogram completed revealing ejection fraction 15 to 20%, cannot exclude apical thrombus, severe global hypokinesis of left ventricle. Mild pulmonary hypertension. Mild to moderate MR, mild AR, moderate aortic stenosis with peak gradient 22 mmHg mean gradient 14 mmHg, mild tricuspid regurgitation 12/11/2024 Patient examined this morning the bedside. Patient is resting comfortably in bed. No complaints of chest pain or shortness of breath. Vital signs are stable. 12/12/2024 Patient is seen and examined at bedside this a.m. Denies any new chest pain chest pressure shortness of breath. Appears euvolemic. Blood pressure is low normal however does not report any lightheadedness or dizziness. 12/13/2024 Patient is seen and examined at bedside this a.m. His blood pressure was better as compared to yesterday. PHYSICAL EXAM: VITAL SIGNS: Reviewed. GENERAL: Well-developed in no acute distress. NECK: Supple. No JVD or thyromegaly LUNGS: Respirations even and unlabored. Lungs essentially clear to auscultation bilaterally. HEART: Regular rate and rhythm. S1 and S2 heard. EXTREMITIES: Normal range of motion. No clubbing or cyanosis. Peripheral pulses intact. No lower extremity edema ASSESSMENT: Sinus tachycardia, Atrial fibrillation has been ruled out Acute on chronic heart failure with reduced EF, currently euvolemic Dilated cardiomyopathy, 15 to 20%, ischemic versus nonischemic Valvular heart disease including mild to moderate MR, mild AR, moderate aortic stenosis, mild TR Hyponatremia Lactic acidosis Recent diagnosis of left-sided pulmonary emboli on Eliquis Small cell lung cancer new diagnosis. Patient has not followed up with pulmonary medicine or oncology for results of pathology. COPD Tobacco use and dependence PLAN: Continue Eliquis 5 mg twice daily, Farxiga 10 mg daily, losartan 20 mg daily, metoprolol succinate 25 mg daily, A ldactone 12.5 mg daily Hold cardiac medications for systolic blood pressure less than 85 At this time patient is on anticoagulation for his possible LV thrombus and for his recent pulm embolism. He eventually need ischemic evaluation but before this heart catheterization he he will need his anticoagulation to be stopped for 48 hours. At this time patient does not have any chest pain and appears euvolemic. After discussing with Dr. Mcgrath came to the conclusion that patient should follow up on outpatient basis to get cardiac catheterization for both left and right side. He should be discharged on LifeVest dimension of sudden cardiac in setting of dilated cardiomyopathy with severely reduced LV systolic function. Performed PT OT evaluation and orthostatic vital signs prior to discharge. At this time patient is cleared from cardiovascular standpoint. Cardiology team will sign off. Please reconsult us in case of any question. Objective - Vital Signs Vital signs: Vital Signs Temp 98.6 F 12/13/24 19:31 Pulse 79 12/13/24 19:31 Resp 18 12/13/24 19:31 BP 86/57 12/13/24 19:31 Pulse Ox 94 L 12/13/24 19:31 FiO2 Intake & Output 12/13/24 12/13/24 12/14/24 06:59 18:59 06:59 Intake Total 20 378 Output Total 325 Balance -305 378 Weight 85.5 kg Intake: IV 20 20 Invasive Line 2 20 20 Oral 358 Output: Urine 325 Other: Voiding Method External Catheter External Catheter # Voids 1 # Bowel Movements 1 1 - Labs CBC & Chem 7: 12/13/24 06:59 12/13/24 06:59 Labs: Abnormal Lab Results - Last 24 Hours (Table) 12/13/24 12/13/24 12/13/24 Range/Units 05:59 06:59 06:59 RBC 4.28 L (4.30-5.90) m/uL Hgb 12.6 L (13.0-17.5) gm/dL MCHC 30.7 L (31.0-37.0) g/dL Sodium 134 L (137-145) mmol/L BUN 29 H (9-20) mg/dL Glucose 129 H (74-99) mg/dL POC Glucose (mg/dL) 139 H (70-110) mg/dL 12/13/24 12/13/24 12/13/24 Range/Units 11:39 16:29 20:11 RBC (4.30-5.90) m/uL Hgb (13.0-17.5) gm/dL MCHC (31.0-37.0) g/dL Sodium (137-145) mmol/L BUN (9-20) mg/dL Glucose (74-99) mg/dL POC Glucose (mg/dL) 177 H 285 H 113 H (70-110) mg/dL
[2024-12-14 06:05] LABS: Glucose,Whole Blood 77 mg/dL (70-110)
[2024-12-14 07:46] LABS: Basophils % (A) 0 %; Eosinophils # (A) 0.1 k/uL (0-0.7); Eosinophils % (A) 2 %; HCT 39.2 % (39.0-53.0); HGB 12.2 gm/dL (13.0-17.5); Hypochromasia Slight; Lymphocytes # (A) 1.7 k/uL (1.0-4.8); Lymphocytes % (A) 24 %; MCH 29.6 pg (25.0-35.0); MCHC 31.2 g/dL (31.0-37.0); Monocytes # (A) 0.4 k/uL (0-1.0); Monocytes % (A) 5 %; Neutrophils # (A) 4.7 k/uL (1.3-7.7); Neutrophils % (A) 67 %; Platelet Count 393 k/uL (150-450); RBC 4.12 m/uL (4.30-5.90); RDW 13.6 % (11.5-15.5)
[2024-12-14 08:05] LABS: African American GFR (CKD) 64 (>60 ml/min/1.73 sqM); Anion Gap 6 mmol/L; Blood Urea Nitrogen 32 mg/dL (9-20); Calcium 9.2 mg/dL (8.4-10.2); Carbon Dioxide 26 mmol/L (22-30); Chloride 99 mmol/L (98-107); Glucose 69 mg/dL (74-99); Non-African American GFR(CKD) 56 (>60 ml/min/1.73 sqM); Potassium 4.5 mmol/L (3.5-5.1); Sodium 131 mmol/L (137-145)
--- NOTE | 2024-12-14 08:12 | P.PN ---
Subjective Progress Note Date: 12/13/24 79-year-old male came in after a fall patient denied any shortness of breath at this time. Patient is found to be in atrial fibrillation with rapid unclear rate this is new onset A-fib patient is presently sinus rhythm rate controlled. Patient was eval by cardiology was started on Anticoagulation and rate control medications. Patient has elevated proBNP with chest x-ray did not show any congestive heart failure patient has been n.p.o. 6000 although patient appears to be volume depleted clinically patient is hypotensive and hyponatremic. Patient does not have any elevated JVD or pedal edema. Patient fall is not secondary to syncope but he slipped and fell. Patient was recently hospitalized and found to have a mass in the right upper lobe patient quit smoking does not have any history of COPD as per the patient does not use any oxygen at home. Patient is saturating 100% on 2 L. Patient is supposed to follow-up with Dr. Quarles as an outpatient but did not make an appointment yet, patient is supposed to follow-up with oncology as well as an outpatient. Is not a known diabetic but his blood sugars are in 500s I do not have any hemoglobin A1c available at this time. Patient was started on IV insulin. Patient also had mild lactic acidosis. Patient serum creatinine is 1.4 on admission came down to 1.3 patient has chronic history of chronic kidney disease. 12/09/2024 Patient is seen in follow-up today with cardiology following underwent 2D echo and read is pending at this time. Patient currently receiving a breathing treatment and reports continued shortness of breath. Patient is maintaining 98% on 2 L of oxygen. Patient does not normally wear oxygen outpatient. Wean FiO2 as tolerated. Patient also to be evaluated by physical therapy with generalized weakness. Hemoglobin A1c is 7.9 and diabetes is new onset as well. Patient is afebrile and denies chest pain or palpitations. 12/10/2024 Patient is seen in follow-up today and 2D echo was noted to be 15-20% EF. Car diology following making adjustments to medications and blood pressures have been on the lower side. Patient continues to have some wheezing noted maintained on breathing treatments as well as supplemental oxygen. Encouraged the patient to get up more frequently and sit up in the chair. PT/OT therapy is evaluate the patient recommending rehab and patient is agreeable. Continue monitoring Accu-Cheks ACHS and will adjust accordingly. 12/11/2024 Patient is seen in follow-up today with cardiology following making adjustments to medications and discussing possible cardiac catheterization although recommending evaluation by oncology for recently diagnosed small cell lung carcinoma status post bronchoscopy with biopsy with pulmonary last month. Patient is reporting shortness of breath although no worsening and continues with significant weakness. Case management/social work following as physical therapy evaluated recommending rehab and patient was agreeable. Patient has been accepted at [facility] pending insurance authorization. Patient is currently afebrile with no reported chest pains or palpitations. Continue telemetry monitoring and will discuss further with consultations regarding treatment plan moving forward. 12/12/2024 Evaluated in follow-up on the cardiac floor, he is sitting up in the chair. he is not having any Acute complaints at this time not reporting any discomfort or shortness of breath. Discussed with oncology that they have evaluate this patient his prior admission and patient is already set up with Dr. Brown in the office to establish care. He was initially planned to undergo PET scan outpatient but as patient is currently hospitalized oncology will proceed with staging during this admission and patient be going for a CT abdomen pelvis as well as a brain MRI. At this time oncology is recommending to proceed with any type of cardiac intervention if needed as they are unable to stage this patient without all the appropriate testing completed. Labs today reveal a sodium level of 135, BUN of 26 creatinine 1.33. He remains afebrile he is on room air with oxygen saturations of 97 to 98%. His blood pressure is marginal in the 90s to 8 0s systolic. 12/13/2024 Patient is seen and evaluated in follow-up with multiple consultations ned todd. Cardiology with no plans of cardiac catheterization at this time recommending maximizing medical management and outpatient follow-up for further intervention. Patient undergoing further imaging including CT abdomen pelvis along with MRI of the brain which is pending at this time per oncology as outpatient PET scan has been canceled for now. Patient denies chest pain or shortness of breath and is currently on room air. Patient continues to receive DuoNeb treatments and will continue. Patient with weakness being evaluated for rehab and has been accepted at [facility] with insurance authorization being obtained. Authorization is good through Monday. Review of systems: Constitutional: No reports of fatigue, fever, or chills Cardiovascular: No reports of chest pain or palpitations Respiratory: reports of shortness of breath with no worsening GI: No reports of nausea, vomiting, or diarrhea : No reports of dysuria or retention Neurovascular: reports of generalized weakness All medications have been reviewed PHYSICAL EXAMINATION: GENERAL: The patient is awake, alert and oriented x3, not in any acute distress. Well developed, well nourished. Elderly appearing, ill-appearing HEENT: Pupils are round and equally reacting to light. EOMI. No scleral icterus. No conjunctival pallor. Normocephalic, atraumatic. No pharyngeal erythema. No thyromegaly. CARDIOVASCULAR: S1 and S2 muffled, irregular PULMONARY: Diminished breath sounds bilaterally with some scattered rhonchi noted, improved expiratory wheezing ABDOMEN: Soft, nontender, nondistended, normoactive bowel sounds. No palpable organomegaly. MUSCULOSKELETAL: No joint swelling or deformity. EXTREMITIES: No cyanosis, clubbing, or pedal edema. NEUROLOGICAL: Gross neurological examination did not reveal any focal deficits. Diffusely weak SKIN: No rashes. Assessment: - new onset atrial fibrillation:, Likely sinus tachycardia, atrial fibrillation ruled out per cardiology -Cardiomyopathy, EF 15 to 20%, ischemic versus nonischemic, discussing possible cardiac catheterization in the outpatient setting after maximizing medical management after oncology evaluation for recently diagnosed Small cell carcinoma as there was also concerns for possible apical thrombus that could not be excluded -New onset diabetes mellitus, type II, uncontrolled with hyperglycemia, hemoglobin A1c 7.9, and will continue with sliding scale and long-acting and adjust accordingly. -Acute renal failure: Probably due to intravascular depletion, improving patient is also on losartan with decreased blood pressures this could be attributing to his creatinine and would recommend to hold the losartan we will leave this up to cardiology at this time. -Hyponatremia hypoosmolar hyponatremia -Right upper lobe mass status post recent bronchoscopy with recent diagnosis of small cell lung carcinoma, oncology with plans to complete staging while inpatient and patient will be going for a CT of the abdomen pelvis as well as a brain MRI sometime today. Possible MRI on Monday. At this point they are recommending to proceed with any type of cardiac intervention that is warranted as they are unable to officially stage this patient as they do not have all the appropriate testing back yet. -COPD history, presently not in acute exacerbation -Generalized weakness with gait dysfunction, patient evaluated by physical the rapy recommending rehab and patient is agreeable. Patient will be going to rehab on discharge. Patient will be going to [facility] and has received insurance authorization awaiting finalized testing per oncology before discharge DVT prophylaxis: On Eliquis GI prophylaxis Full code Possible discharge to [facility] on Monday The impression and plan of care has been dictated by Bambi Carlos, Nurse Practitioner as directed. Dr. Aditi MD I have performed a history and examination and MDM of this patient, discussed the same with the dictator, and agree with the dictator's assessment and plan as written ,documented as a scribe. Based on total visit time, I have performed more than 50% of the visit. Objective - Vital Signs Vital signs: Vital Signs Temp 97.4 F L 12/13/24 07:27 Pulse 84 12/13/24 08:15 Resp 19 12/13/24 07:27 BP 105/66 12/13/24 07:27 Pulse Ox 96 12/13/24 08:06 FiO2 Intake & Output 12/12/24 12/13/24 12/13/24 18:59 06:59 18:59 Intake Total 690 20 10 Output Total 200 325 Balance 490 -305 10 Weight 85.5 kg Intake: IV 10 20 10 Invasive Line 2 10 20 10 Oral 680 Output: Urine 200 325 Other: Voiding Method External Catheter External Catheter External Catheter # Bowel Movements 1 1 - Labs CBC & Chem 7: 12/14/24 06:59 12/14/24 06:59 Labs: Abnormal Lab Results - Last 24 Hours (Table) 12/12/24 12/12/24 12/12/24 Range/Units 11:49 16:48 19:54 RBC (4.30-5.90) m/uL Hgb (13.0-17.5) gm/dL MCHC (31.0-37.0) g/dL Sodium (137-145) mmol/L BUN (9-20) mg/dL Glucose (74-99) mg/dL POC Glucose (mg/dL) 154 H 113 H 163 H (70-110) mg/dL 12/13/24 12/13/24 12/13/24 Range/Units 05:59 06:59 06:59 RBC 4.28 L (4.30-5.90) m/uL Hgb 12.6 L (13.0-17.5) gm/dL MCHC 30.7 L (31.0-37.0) g/dL Sodium 134 L (137-145) mmol/L BUN 29 H (9-20) mg/dL Glucose 129 H (74-99) mg/dL POC Glucose (mg/dL) 139 H (70-110) mg/dL
[2024-12-14 11:21] LABS: Glucose,Whole Blood 150 mg/dL (70-110)
--- NOTE | 2024-12-14 11:58 | P.PN ---
Subjective 79-year-old male came in after a fall patient denied any shortness of breath at this time. Patient is found to be in atrial fibrillation with rapid unclear rate this is new onset A-fib patient is presently sinus rhythm rate controlled. Patient was eval by cardiology was started on Anticoagulation and rate control medications. Patient has elevated proBNP with chest x-ray did not show any congestive heart failure patient has been n.p.o. 6000 although patient appears to be volume depleted clinically patient is hypotensive and hyponatremic. P atient does not have any elevated JVD or pedal edema. Patient fall is not secondary to syncope but he slipped and fell. Patient was recently hospitalized and found to have a mass in the right upper lobe patient quit smoking does not have any history of COPD as per the patient does not use any oxygen at home. Patient is saturating 100% on 2 L. Patient is supposed to follow-up with Dr. Quarles as an outpatient but did not make an appointment yet, patient is supposed to follow-up with oncology as well as an outpatient. Is not a known diabetic but his blood sugars are in 500s I do not have any hemoglobin A1c available at this time. Patient was started on IV insulin. Patient also had mild lactic acidosis. Patient serum creatinine is 1.4 on admission came down to 1.3 patient has chronic history of chronic kidney disease. 12/09/2024 Patient is seen in follow-up today with cardiology following underwent 2D echo and read is pending at this time. Patient currently receiving a breathing tr eatment and reports continued shortness of breath. Patient is maintaining 98% on 2 L of oxygen. Patient does not normally wear oxygen outpatient. Wean FiO2 as tolerated. Patient also to be evaluated by physical therapy with generalized weakness. Hemoglobin A1c is 7.9 and diabetes is new onset as well. Patient is afebrile and denies chest pain or palpitations. 12/10/2024 Patient is seen in follow-up today and 2D echo was noted to be 15-20% EF. Cardiology following making adjustments to medications and blood pressures have been on the lower side. Patient continues to have some wheezing noted maintained on breathing treatments as well as supplemental oxygen. Encouraged the patient to get up more frequently and sit up in the chair. PT/OT therapy is evaluate the patient recommending rehab and patient is agreeable. Continue monitoring Accu-Cheks ACHS and will adjust accordingly. 12/11/2024 Patient is seen in follow-up today with cardiology following making adjustments to medications and discussing possible cardiac catheterization although recommending evaluation by oncology for recently diagnosed small cell lung carcinoma status post bronchoscopy with biopsy with pulmonary last month. Patient is reporting shortness of breath although no worsening and continues with significant weakness. Case management/social work following as physical therapy evaluated recommending rehab and patient was agreeable. Patient has been accepted at [facility] pending insurance authorization. Patient is currently afebrile with no reported chest pains or palpitations. Continue tele metry monitoring and will discuss further with consultations regarding treatment plan moving forward. 12/12/2024 Evaluated in follow-up on the cardiac floor, he is sitting up in the chair. he is not having any Acute complaints at this time not reporting any discomfort or shortness of breath. Discussed with oncology that they have evaluate this patient his prior admission and patient is already set up with Dr. Brown in the office to establish care. He was initially planned to undergo PET scan o utpatient but as patient is currently hospitalized oncology will proceed with staging during this admission and patient be going for a CT abdomen pelvis as well as a brain MRI. At this time oncology is recommending to proceed with any type of cardiac intervention if needed as they are unable to stage this patient without all the appropriate testing completed. Labs today reveal a sodium level of 135, BUN of 26 creatinine 1.33. He remains afebrile he is on room air with oxygen saturations of 97 to 98%. His blood pressure is marginal in the 90s to 80s systolic. 12/13/2024 Patient is seen and evaluated in follow-up with multiple consultations following. Cardiology with no plans of cardiac catheterization at this time recommending maximizing medical management and outpatient follow-up for further intervention. Patient undergoing further imaging including CT abdomen pelvis along with MRI of the brain which is pending at this time per oncology as outpatient PET scan has been canceled for now. Patient denies chest pain or shortness of breath and is currently on room air. Patient continues to receive DuoNeb treatments and will continue. Patient with weakness being evaluated for rehab and has been accepted at [facility] with insurance authorization being obtained. Authorization is good through Monday. 12/14 Patient awake alert, looks comfortable lying in bed He denies any respiratory issue like no chest pain or dyspnea. Yesterday he had CT of the abdomen and pelvis for part of his staging disease for his lung cancer and right upper lung mass, it shows no lymphadenopathy but there is some evidence of pneumomediastinum most likely related to his bronchoscopy. Patient says that he has bronchoscopy about 1 week ago. Also there is evidence of subcarinal lymphadenopathy suspicious for metastatic disease and there is also prostatomegaly which can be followed as an outpatient As part of his further workup patient is going for MRI of the brain today. No other new complaint and he is hemodynamically stable, blood pressure slightly on the low side 86/57 Creatinine 1.2. He is continued on Eliquis 5 mg. Losartan on hold. Review of systems CONSTITUTIONAL: No fever, no malaise, no fatigue. HEENT: No recent visual problems or hearing problems. Denied any sore throat. CARDIOVASCULAR: No orthopnea, PND, no palpitations, no syncope. PULMONARY: No shortness of breath, no cough, no hemoptysis. GASTROINTESTINAL: No diarrhea, no nausea, no vomiting, no abdominal pain. Normoactive bowel sounds. NEUROLOGICAL: No headaches, no weakness, no numbness. HEMATOLOGICAL: Denies any bleeding or petechiae. Active Medications Generic Name Dose Route Start Last Admin Trade Name Freq PRN Reason Stop Dose Admin Acetaminophen 650 mg 12/10/24 18:20 12/10/24 18:25 Acetaminophen Tab 325 Mg Tab PO 650 mg Q6HR PRN Administration Pain Albuterol/Ipratropium 3 ml 12/08/24 03:48 12/08/24 03:54 Ipratropium-Albuterol 3 Ml Neb INHALATION 3 ml RT-TID PRN Administration Shortness Of Breath Or Wheezing Albuterol/Ipratropium 3 ml 12/08/24 13:00 12/14/24 08:00 Ipratropium-Albuterol 3 Ml Neb INHALATION 3 ml RT-TID JAIRO Administration Apixaban 5 mg 12/13/24 21:00 12/14/24 09:42 Apixaban 5 Mg Tab PO 5 mg BID JAIRO Administration Protocol Budesonide/Formoterol Fumarate 2 puff 12/08/24 20:00 12/14/24 08:00 Symbicort 160-4.5 Mcg Inhaler INHALATION 2 puff RT-BID JAIRO Administration Dapagliflozin 10 mg 12/09/24 09:45 12/14/24 09:42 Dapagliflozin Propanediol 10 Mg Tablet PO 10 mg DAILY JAIRO Administration Dextrose/Water 25 ml 12/08/24 05:20 Dextrose 50% Syringe 50 Ml IVP PER PROTOCOL PRN Hypoglycemia Protocol Dextrose/Water 50 ml 12/08/24 05:20 Dextrose 50% Syringe 50 Ml IVP PER PROTOCOL PRN Hypoglycemia Protocol Fluoxetine HCl 10 mg 12/08/24 16:00 12/13/24 20:15 Fluoxetine Hcl 10 Mg Cap PO 10 mg TID JAIRO Administration Gabapentin 100 mg 12/08/24 16:00 12/14/24 09:43 Gabapentin 100 Mg Cap PO 100 mg TID JAIRO Administration Insulin Glargine 28 unit 12/10/24 07:00 12/14/24 06:38 Insulin Glargine (Lantus) 100 Unit/Ml Syr SQ 28 unit DAILY@0700 JAIRO Administration Insulin Human Lispro 0 unit 12/08/24 12:30 12/14/24 06:38 Insulin Lispro (Humalog) 100 Unit/Ml 10 Ml Vl SQ Not Given ACHS [facility] Protocol Losartan Potassium 25 mg 12/11/24 09:00 12/14/24 09:43 Losartan 25 Mg Tab PO 25 mg DAILY JAIRO Administration Metoprolol Succinate 25 mg 12/13/24 09:00 12/14/24 09:42 Metoprolol Succinate (Er) 25 Mg Tab.Er.24h PO 25 mg DAILY JAIRO Administration Naloxone HCl 0.2 mg 12/07/24 19:25 Naloxone 0.4 Mg/Ml 1 Ml Vial IV Q2M PRN Opioid Reversal Ondansetron HCl 4 mg 12/07/24 19:25 Ondansetron 4 Mg/2 Ml Vial IVP Q8HR PRN Nausea And Vomiting Quetiapine Fumarate 25 mg 12/08/24 11:00 12/14/24 09:42 Quetiapine 25 Mg Tab PO 25 mg BID JAIRO Administration Spironolactone 12.5 mg 12/13/24 11:00 12/14/24 09:42 Spironolactone 25 Mg Tab PO 12.5 mg DAILY JAIRO Administration Objective - Vital Signs Vital signs: Vital Signs Temp 98.2 F 12/14/24 03:23 Pulse 90 12/14/24 08:19 Resp 20 12/14/24 03:23 BP 102/66 12/14/24 03:23 Pulse Ox 91 L 12/14/24 08:02 FiO2 Intake & Output 12/13/24 12/14/24 12/14/24 18:59 06:59 18:59 Intake Total 378 10 120 Output Total 0 Balance 378 10 120 Weight 87.5 kg Intake: IV 20 10 Invasive Line 2 20 10 Oral 358 120 Output: Gastric Drainage 0 Urine 0 Stool 0 Urine/Stool Mix 0 Emesis 0 Oral Regurgitation 0 Other 0 Other: Voiding Method External Catheter External Catheter # Voids 1 0 # Bowel Movements 1 0 - Exam GENERAL: The patient is alert and oriented x3, not in any acute distress. Well developed, well nourished. HEENT: Pupils are round and equally reacting to light. EOMI. No scleral icterus. No conjunctival pallor. Normocephalic, atraumatic. No pharyngeal erythema. No thyromegaly. CARDIOVASCULAR: S1 and S2 present. No murmurs, rubs, or gallops. PULMONARY: Chest is clear to auscultation, no wheezing , no crackles. ABDOMEN: Soft, nontender, nondistended, normoactive bowel sounds. No palpable organomegaly. MUSCULOSKELETAL: No joint swelling or deformity. EXTREMITIES: No cyanosis, clubbing, or pedal edema. NEUROLOGICAL: Gross neurological examination did not reveal any focal deficits. SKIN: No rashes. no petechiae. - Labs CBC & Chem 7: 12/14/24 06:59 12/14/24 06:59 Labs: Abnormal Lab Results - Last 24 Hours (Table) 12/13/24 12/13/24 12/14/24 Range/Units 16:29 20:11 06:59 RBC 4.12 L (4.30-5.90) m/uL Hgb 12.2 L (13.0-17.5) gm/dL Sodium (137-145) mmol/L BUN (9-20) mg/dL Glucose (74-99) mg/dL POC Glucose (mg/dL) 285 H 113 H (70-110) mg/dL 12/14/24 12/14/24 Range/Units 06:59 11:19 RBC (4.30-5.90) m/uL Hgb (13.0-17.5) gm/dL Sodium 131 L (137-145) mmol/L BUN 32 H (9-20) mg/dL Glucose 69 L (74-99) mg/dL POC Glucose (mg/dL) 150 H (70-110) mg/dL Assessment and Plan Assessment: - new onset atrial fibrillation:, Likely sinus tachycardia, atrial fibrillation ruled out per cardiology -Cardiomyopathy, EF 15 to 20%, ischemic versus nonischemic, discussing possible cardiac catheterization in the outpatient setting after maximizing medical management after oncology evaluation for recently diagnosed Small cell carcinoma as there was also concerns for possible apical thrombus that could not be excluded -New onset diabetes mellitus, type II, uncontrolled with hyperglycemia, hemoglobin A1c 7.9, and will continue with sliding scale and long-acting and adjust accordingly. -Acute renal failure: Probably due to intravascular depletion, improving patient is also on losartan with decreased blood pressures this could be attributing to his creatinine and would recommend to hold the losartan we will leave this up to cardiology at this time. -Hyponatremia hypoosmolar hyponatremia -Right upper lobe mass status post recent bronchoscopy with recent diagnosis of small cell lung carcinoma, oncology with plans to complete staging while inpatient and patient will be going for a CT of the abdomen pelvis as well as a brain MRI sometime today. Possible MRI on Monday. At this point they are recommending to proceed with any type of cardiac intervention that is warranted as they are unable to officially stage this patient as they do not have all the appropriate testing back yet. -COPD history, presently not in acute exacerbation -Generalized weakness with gait dysfunction, patient evaluated by physical therapy recommending rehab and patient is agreeable. Patient will be going to rehab on discharge. Patient will be going to [facility] and has received insurance authorization awaiting finalized testing per oncology before discharge DVT prophylaxis: On Eliquis GI prophylaxis Full code Possible discharge to [facility] on Monday
--- NOTE | 2024-12-14 12:33 | MR ---
EXAMINATION TYPE: MR brain wo/w con DATE OF EXAM: 12/14/2024 12:23 PM COMPARISON: None. CLINICAL INDICATION: Male, 79 years old with history of small cell carcinoma, r/o brain mets, small c ell carcinoma. r/o brain mets. IV Contrast: 8.5 cc Gadobutrol (None if empty) TECHNIQUE: Multiplanar, multisequence images of the brain and brainstem is performed without and with IV contras t, utilizing 8.5 mL intravenous Gadobutrol . FINDING: The ventricles, basal cisterns and sulci of the neck is within normal limits. There are multiple innumerable rim enhancing brain metastases many of which with vasogenic edema. The largest lesions include a 2.8 cm metastasis in the superior right parietal region, 3 cm metastasis i n the left occipital lobe and a 3.1 cm mass in the right cerebellum. There is no shift of midline str uctures. The intraorbital contents are normal and symmetric. Visualized paranasal sinuses and mastoid air cells are well aerated. IMPRESSION: Marked metastatic disease throughout the brain as described above. There is no shift of midline struc tures. [facility], , 12/14/2024 12:31 PM
[2024-12-14 16:17] LABS: Glucose,Whole Blood 104 mg/dL (70-110)
[2024-12-14] MEDS: DEXAMETHASONE SOD PHOSPHATE 4 MG/ML 1 ML VIAL IVP SCH (17:26)
[2024-12-14] MEDS: PANTOPRAZOLE 40 MG TABLET PO SCH (17:54)
[2024-12-14 20:03] LABS: Glucose,Whole Blood 215 mg/dL (70-110)
[2024-12-14] MEDS: levETIRAcetam IV 500 MG/5 ML VIAL IVP SCH (20:22)
--- NOTE | 2024-12-14 20:37 | XR ---
EXAMINATION TYPE: XR chest 1V portable DATE OF EXAM: 12/14/2024 8:26 PM COMPARISON: Multiple prior chest radiograph, most recently dated 12/07/2024. CLINICAL INDICATION: Male, 79 years old with history of postictal; [facility] TECHNIQUE: XR chest 1V portable Frontal view of the chest. FINDINGS: Lungs/Pleura: Prominence of the right hilar region and complete collapse/atelectasis of the right upp er lobe. No pneumothorax. No pleural effusion. Prominence of the right hilar region. Pulmonary vascularity: Unremarkable. Heart/mediastinum: Cardiomegaly. Musculoskeletal: No acute osseous pathology. Other findings: None IMPRESSION: No significant interval changes from recent study 12/07/2024. [facility], , 12/14/2024 8:35 PM
[2024-12-15] MEDS: OLANZapine 10 MG VIAL IM PRN (00:13)
[2024-12-15] MEDS: OLANZapine 10 MG VIAL IM STA (00:19)
[2024-12-15 06:15] LABS: Glucose,Whole Blood 116 mg/dL (70-110)
[2024-12-15 11:29] LABS: Glucose,Whole Blood 126 mg/dL (70-110)
--- NOTE | 2024-12-15 11:43 | P.PN ---
Subjective Progress Note Date: 12/15/24 Principal diagnosis: Small cell lung cancer -Afebrile, no acute events overnight -CT abdomen and pelvis revealed no evidence of metastatic disease -Brain MRI noted multiple rim-enhancing lesions with surrounding vasogenic edema concerning for metastatic disease -He denies any headaches, blurry vision, trouble with speech, or focal neurologic deficits -He was started on dexamethasone 4 mg every 6 hours on 12/14/2024 Objective - Vital Signs Vital signs: Vital Signs Temp 98.3 F 12/15/24 08:00 Pulse 84 12/15/24 09:44 Resp 16 12/15/24 08:00 BP 105/68 12/15/24 08:00 Pulse Ox 94 L 12/15/24 09:29 FiO2 Intake & Output 12/14/24 12/15/24 12/15/24 17:59 06:59 18:59 Intake Total Output Total 0 Balance 0 Weight Intake: Oral Output: Gastric Drainage Urine Stool 0 Urine/Stool Mix Emesis Oral Regurgitation Other Other: Voiding Method Incontinent # Voids # Bowel Movements - Constitutional General appearance: Present: cooperative, no acute distress - EENT Eyes: Present: EOMI - Respiratory Respiratory: bilateral: rhonchi - Cardiovascular Details: Difficulty auscultating heart sounds due to rhonchi Rhythm: irregularly irregular - Gastrointestinal General gastrointestinal: Present: soft. Absent: distended - Integumentary Integumentary: Absent: rash - Neurologic Neurologic: Present: CNII-XII intact. Absent: focal deficits - Psychiatric Psychiatric: Present: A&O x's 3, appropriate affect - Labs CBC & Chem 7: 12/14/24 06:59 12/14/24 06:59 Labs: Abnormal Lab Results - Last 24 Hours (Table) 12/14/24 12/14/24 12/15/24 Range/Units 11:19 20:02 06:12 POC Glucose (mg/dL) 150 H 215 H 116 H (70-110) mg/dL 12/15/24 Range/Units 11:24 POC Glucose (mg/dL) 126 H (70-110) mg/dL - Imaging and Cardiology CT scan - abdomen: report reviewed MRI - head: report reviewed, image reviewed Assessment and Plan (1) Extensive stage primary small cell carcinoma of lung Current Visit: Yes Status: Acute Code(s): C34.90 - MALIGNANT NEOPLASM OF U NSP PART OF UNSP BRONCHUS OR LUNG SNOMED Code(s): 905979010514529 (2) Atrial fibrillation with rapid ventricular response Current Visit: Yes Status: Acute Priority: High Code(s): I48.91 - UNSPECIFIED ATRIAL FIBRILLATION SNOMED Code(s): 053132733266968 Plan: Extensive stage small cell carcinoma of the lung: -Oncology history as dictated in the HPI -During previous admit CTA chest showing left lung segmental and subsegmental pulmonary emboli without evidence of right heart strain. Large mediastinal mass measuring 7.9 x 5.3 cm, extending into the right hilum with abrupt cut off of the right upper lobe bronchus and subsequent atelectasis and consolidation of the right upper lobe. Additionally there was mediastinal adenopathy noted. -Pathology was positive for small cell carcinoma -CT abdomen/pelvis revealed no evidence of metastatic disease -Brain MRI noted multiple rim-enhancing lesions with surrounding vasogenic edema concerning for metastasis -Dexamethasone 4 mg IV every 6 hours was initiated on 12/14/2024. He is on oral PPI and insulin sliding scale -We discussed brain MRI findings today as well as the need for radiation therapy to these lesions (likely whole brain radiation therapy) -Consult for radiation oncology has been placed today -He was scheduled for outpatient follow-up on 12/18/2024 to further discuss treatment plan, which will include radiation therapy as stated above followed by systemic treatment with carboplatin/etoposide/Tecentriq -There should be radiation oncology plan prior to discharge A-fib with RVR: Presented to the emergency room after mechanical fall and reports he was feeling dizzy and short of breath at which time he presented for further evaluation. -Patient was found to be in new onset atrial fibrillation. Cardiology was consulted and echocardiogram revealed EF 15 to 20%. BNP 6220 -From an oncology perspective, I would not advise aggressive cardiac interventions as he has extensive stage small cell lung cancer and continue o ptimization with medical management Julian Martínez MD
--- NOTE | 2024-12-15 12:39 | XR ---
EXAMINATION TYPE: XR chest 1V DATE OF EXAM: 12/15/2024 COMPARISON: 12/14/2024 CLINICAL INDICATION: Male, 79 years old with history of sob, ro aspiration; TECHNIQUE: Single frontal view of the chest is obtained. FINDINGS: There is persistent right upper lobe collapse with no interval change. The left lung remains clear. No pneumothorax or pleural effusion. The pulmonary vasculature does not appear congested and the hear t is not enlarged. The osseous structures are intact. IMPRESSION: Right upper lobe collapse with no interval change. No new abnormalities. [facility], , 12/15/2024 12:36 PM
--- NOTE | 2024-12-15 12:42 | P.PN ---
Subjective 79-year-old male came in after a fall patient denied any shortness of breath at this time. Patient is found to be in atrial fibrillation with rapid unclear rate this is new onset A-fib patient is presently sinus rhythm rate controlled. Patient was eval by cardiology was started on Anticoagulation and rate control medications. Patient has elevated proBNP with chest x-ray did not show any congestive heart failure patient has been n.p.o. 6000 although patient appears to be volume depleted clinically patient is hypotensive and hyponatremic. P atient does not have any elevated JVD or pedal edema. Patient fall is not secondary to syncope but he slipped and fell. Patient was recently hospitalized and found to have a mass in the right upper lobe patient quit smoking does not have any history of COPD as per the patient does not use any oxygen at home. Patient is saturating 100% on 2 L. Patient is supposed to follow-up with Dr. Quarles as an outpatient but did not make an appointment yet, patient is supposed to follow-up with oncology as well as an outpatient. Is not a known diabetic but his blood sugars are in 500s I do not have any hemoglobin A1c available at this time. Patient was started on IV insulin. Patient also had mild lactic acidosis. Patient serum creatinine is 1.4 on admission came down to 1.3 patient has chronic history of chronic kidney disease. 12/09/2024 Patient is seen in follow-up today with cardiology following underwent 2D echo and read is pending at this time. Patient currently receiving a breathing tr eatment and reports continued shortness of breath. Patient is maintaining 98% on 2 L of oxygen. Patient does not normally wear oxygen outpatient. Wean FiO2 as tolerated. Patient also to be evaluated by physical therapy with generalized weakness. Hemoglobin A1c is 7.9 and diabetes is new onset as well. Patient is afebrile and denies chest pain or palpitations. 12/10/2024 Patient is seen in follow-up today and 2D echo was noted to be 15-20% EF. Cardiology following making adjustments to medications and blood pressures have been on the lower side. Patient continues to have some wheezing noted maintained on breathing treatments as well as supplemental oxygen. Encouraged the patient to get up more frequently and sit up in the chair. PT/OT therapy is evaluate the patient recommending rehab and patient is agreeable. Continue monitoring Accu-Cheks ACHS and will adjust accordingly. 12/11/2024 Patient is seen in follow-up today with cardiology following making adjustments to medications and discussing possible cardiac catheterization although recommending evaluation by oncology for recently diagnosed small cell lung carcinoma status post bronchoscopy with biopsy with pulmonary last month. Patient is reporting shortness of breath although no worsening and continues with significant weakness. Case management/social work following as physical therapy evaluated recommending rehab and patient was agreeable. Patient has been accepted at [facility] pending insurance authorization. Patient is currently afebrile with no reported chest pains or palpitations. Continue tele metry monitoring and will discuss further with consultations regarding treatment plan moving forward. 12/12/2024 Evaluated in follow-up on the cardiac floor, he is sitting up in the chair. he is not having any Acute complaints at this time not reporting any discomfort or shortness of breath. Discussed with oncology that they have evaluate this patient his prior admission and patient is already set up with Dr. Brown in the office to establish care. He was initially planned to undergo PET scan o utpatient but as patient is currently hospitalized oncology will proceed with staging during this admission and patient be going for a CT abdomen pelvis as well as a brain MRI. At this time oncology is recommending to proceed with any type of cardiac intervention if needed as they are unable to stage this patient without all the appropriate testing completed. Labs today reveal a sodium level of 135, BUN of 26 creatinine 1.33. He remains afebrile he is on room air with oxygen saturations of 97 to 98%. His blood pressure is marginal in the 90s to 80s systolic. 12/13/2024 Patient is seen and evaluated in follow-up with multiple consultations following. Cardiology with no plans of cardiac catheterization at this time recommending maximizing medical management and outpatient follow-up for further intervention. Patient undergoing further imaging including CT abdomen pelvis along with MRI of the brain which is pending at this time per oncology as outpatient PET scan has been canceled for now. Patient denies chest pain or shortness of breath and is currently on room air. Patient continues to receive DuoNeb treatments and will continue. Patient with weakness being evaluated for rehab and has been accepted at [facility] with insurance authorization being obtained. Authorization is good through Monday. 12/14 Patient awake alert, looks comfortable lying in bed He denies any respiratory issue like no chest pain or dyspnea. Yesterday he had CT of the abdomen and pelvis for part of his staging disease for his lung cancer and right upper lung mass, it shows no lymphadenopathy but there is some evidence of pneumomediastinum most likely related to his bronchoscopy. Patient says that he has bronchoscopy about 1 week ago. Also there is evidence of subcarinal lymphadenopathy suspicious for metastatic disease and there is also prostatomegaly which can be followed as an outpatient As part of his further workup patient is going for MRI of the brain today. No other new complaint and he is hemodynamically stable, blood pressure slightly on the low side 86/57 Creatinine 1.2. He is continued on Eliquis 5 mg. Losartan on hold. 12/15 Patient developed a seizure overnight and was started on IV Keppra 1000 milligram twice daily and Ativan as needed EEG is requested MRI of the brain showing extensive metastatic disease throughout the brain. After the seizure he looks lethargic, currently has mild headache and dizziness He does have some gurgly heart sounds a repeat chest x-ray is requested, I reviewed the x-ray by myself showing better infiltrate in the left lower lung zone however official report is pending, currently n.p.o. and speech evaluation is requested He was started also on dexamethasone Daughter was contacted yesterday by staff and she made him DNR Active Medications Generic Name Dose Route Start Last Admin Trade Name Becka PRN Reason Stop Dose Admin Acetaminophen 650 mg 12/10/24 18:20 12/10/24 18:25 Acetaminophen Tab 325 Mg Tab PO 650 mg Q6HR PRN Administration Pain Albuterol/Ipratropium 3 ml 12/08/24 03:48 12/08/24 03:54 Ipratropium-Albuterol 3 Ml Neb INHALATION 3 ml RT-TID PRN Administration Shortness Of Breath Or Wheezing Albuterol/Ipratropium 3 ml 12/08/24 13:00 12/15/24 09:28 Ipratropium-Albuterol 3 Ml Neb INHALATION 3 ml RT-TID JAIRO Administration Budesonide/Formoterol Fumarate 2 puff 12/08/24 20:00 12/15/24 09:28 Symbicort 160-4.5 Mcg Inhaler INHALATION 2 puff RT-BID JAIRO Administration Dapagliflozin 10 mg 12/09/24 09:45 12/15/24 08:59 Dapagliflozin Propanediol 10 Mg Tablet PO Not Given DAILY JAIRO Dexamethasone Sodium Phosphate 4 mg 12/14/24 13:15 12/15/24 11:58 Dexamethasone Sod Phosphate 4 Mg/Ml 1 Ml Vial IVP 4 mg Q6HR JAIRO Administration Dextrose/Water 25 ml 12/08/24 05:20 Dextrose 50% Syringe 50 Ml IVP PER PROTOCOL PRN Hypoglycemia Protocol Dextrose/Water 50 ml 12/08/24 05:20 Dextrose 50% Syringe 50 Ml IVP PER PROTOCOL PRN Hypoglycemia Protocol Fluoxetine HCl 10 mg 12/08/24 16:00 12/15/24 08:59 Fluoxetine Hcl 10 Mg Cap PO Not Given TID JAIRO Gabapentin 100 mg 12/08/24 16:00 12/15/24 08:59 Gabapentin 100 Mg Cap PO Not Given TID [facility] Guaifenesin 600 mg 12/14/24 17:52 Guaifenesin 600 Mg Tablet.Er PO Q12HR PRN Congestion Insulin Glargine 28 unit 12/10/24 07:00 12/15/24 06:19 Insulin Glargine (Lantus) 100 Unit/Ml Syr SQ Not Given DAILY@0700 [facility] Insulin Human Lispro 0 unit 12/08/24 12:30 12/15/24 11:36 Insulin Lispro (Humalog) 100 Unit/Ml 10 Ml Vl SQ Not Given ACHS [facility] Protocol Levetiracetam 1,000 mg 12/14/24 21:00 12/15/24 09:09 Levetiracetam Iv 500 Mg/5 Ml Vial IVP 1,000 mg Q12HR JAIRO Administration Lorazepam 1 mg 12/14/24 23:12 Lorazepam 1 Mg/0.5 Ml Vial IV Q4HR PRN Seizures Losartan Potassium 25 mg 12/11/24 09:00 12/15/24 08:59 Losartan 25 Mg Tab PO Not Given DAILY [facility] Metoprolol Succinate 25 mg 12/13/24 09:00 12/15/24 08:59 Metoprolol Succinate (Er) 25 Mg Tab.Er.24h PO Not Given DAILY [facility] Naloxone HCl 0.2 mg 12/07/24 19:25 Naloxone 0.4 Mg/Ml 1 Ml Vial IV Q2M PRN Opioid Reversal Olanzapine 2.5 mg 12/15/24 00:00 12/15/24 00:13 Olanzapine 10 Mg Vial IM 2.5 mg TID PRN Administration Agitation Ondansetron HCl 4 mg 12/07/24 19:25 Ondansetron 4 Mg/2 Ml Vial IVP Q8HR PRN Nausea And Vomiting Pantoprazole Sodium 40 mg 12/14/24 13:15 12/15/24 06:20 Pantoprazole 40 Mg Tablet PO Not Given AC-BRKFST JAIRO Quetiapine Fumarate 25 mg 12/08/24 11:00 12/15/24 08:59 Quetiapine 25 Mg Tab PO Not Given BID JAIRO Spironolactone 12.5 mg 12/13/24 11:00 12/15/24 08:59 Spironolactone 25 Mg Tab PO Not Given DAILY JAIRO Objective - Vital Signs Vital signs: Vital Signs Temp 98.4 F 12/15/24 11:59 Pulse 85 12/15/24 11:59 Resp 16 12/15/24 11:59 BP 97/61 12/15/24 11:59 Pulse Ox 96 12/15/24 11:59 FiO2 Intake & Output 12/14/24 12/15/24 12/15/24 17:59 06:59 18:59 Intake Total Output Total 450 Balance -450 Weight Intake: Oral Output: Gastric Drainage Urine 450 Stool 0 Urine/Stool Mix Emesis Oral Regurgitation Other Other: Voiding Method Incontinent # Voids # Bowel Movements - Exam GENERAL: The patient is alert and oriented x3, not in any acute distress. Well developed, well nourished. HEENT: Pupils are round and equally reacting to light. EOMI. No scleral icterus. No conjunctival pallor. Normocephalic, atraumatic. No pharyngeal erythema. No thyromegaly. CARDIOVASCULAR: S1 and S2 present. No murmurs, rubs, or gallops. PULMONARY: Chest is clear to auscultation, no wheezing , no crackles. ABDOMEN: Soft, nontender, nondistended, normoactive bowel sounds. No palpable organomegaly. MUSCULOSKELETAL: No joint swelling or deformity. EXTREMITIES: No cyanosis, clubbing, or pedal edema. NEUROLOGICAL: Gross neurological examination did not reveal any focal deficits. SKIN: No rashes. no petechiae. - Labs CBC & Chem 7: 12/14/24 06:59 12/14/24 06:59 Labs: Abnormal Lab Results - Last 24 Hours (Table) 12/14/24 12/15/24 12/15/24 Range/Units 20:02 06:12 11:24 POC Glucose (mg/dL) 215 H 116 H 126 H (70-110) mg/dL Assessment and Plan Assessment: - new onset atrial fibrillation:, Likely sinus tachycardia, atrial fibrillation ruled out per cardiology -Cardiomyopathy, EF 15 to 20%, ischemic versus nonischemic, discussing possible cardiac catheterization in the outpatient setting after maximizing medical management after oncology evaluation for recently diagnosed Small cell carcinoma as there was also concerns for possible apical thrombus that could not be excluded -Extensive metastatic brain disease, with seizure activity. On Keppra and dexamethasone and Ativan as needed -New onset diabetes mellitus, type II, uncontrolled with hyperglycemia, hemoglobin A1c 7.9, and will continue with sliding scale and long-acting and adjust accordingly. -Acute renal failure: Probably due to intravascular depletion, improving patient is also on losartan with decreased blood pressures this could be attributing to his creatinine and would recommend to hold the losartan we will leave this up to cardiology at this time. -Hyponatremia hypoosmolar hyponatremia -Right upper lobe mass status post recent bronchoscopy with recent diagnosis of small cell lung carcinoma, oncology with plans to complete staging while inpatient and patient will be going for a CT of the abdomen pelvis as well as a brain MRI sometime today. Possible MRI on Monday. At this point they are recommending to proceed with any type of cardiac intervention that is warranted as they are unable to officially stage this patient as they do not have all the appropriate testing back yet. -COPD history, presently not in acute exacerbation -Generalized weakness with gait dysfunction, patient evaluated by physical therapy recommending rehab and patient is agreeable. Patient will be going to rehab on discharge. Patient will be going to [facility] and has received insurance authorization awaiting finalized testing per oncology before discharge DVT prophylaxis: On Eliquis GI prophylaxis No code Possible discharge to [facility] on Monday
--- NOTE | 2024-12-15 13:21 | P.CNNES ---
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 History is obtained from medical record. Patient had a recent MRI which shows newly diagnosed brain mets or bilateral hemisphere and there is numerous lesions on the MRI that was performed on 12/14/2024. I was notified by the nurse that the patient had seizure-like activity yesterday and he was placed by the primary attending concrete engineering technician yesterday on Keppra 1 g twice daily. Initially the patient was postictal after the episode that was prolonged and now he is more awake but he is having word finding difficulty upon examining him. Also seems the patient has new onset atrial fibrillation and cardiology is on board. Some of the workup during this hospital visit consisted of: Sodium most recent 1 is 131 Patient glucose is brittle. Was as high as 558 and most recent one is 69 yesterday. Hemoglobin A1c is 10.8 MRI of the brain with and without is reported as marked metastasis disease throughout the brain. There is no shift of the midline structure. I reviewed the MRI and I do agree the patient has numerous brain mets over bilateral hemisphere Review of Systems Limited but as per HPI. Past Medical History Past Medical History: COPD, Diabetes Mellitus, Hypertension Additional Past Medical History / Comment(s): "I take a lot of medication, I don't know what I take it for" History of Any Multi-Drug Resistant Organisms: None Reported Past Surgical History: Back Surgery, Hernia Repair, Tonsillectomy Additional Past Surgical History / Comment(s): neck surgery Past Psychological History: No Psychological Hx Reported Smoking Status: Current every day smoker Past Alcohol Use History: None Reported Past Drug Use History: None Reported, Marijuana Medications and Allergies Home Medications Medication Instructions Recorded Confirmed Type Albuterol Sulfate [Albuterol 1 puff INHALATION RT-Q4H PRN 11/22/24 12/07/24 History Sulfate Hfa] FLUoxetine HCL [PROzac] 10 mg PO TID 11/22/24 12/07/24 History Gabapentin [Neurontin] 100 mg PO TID 11/22/24 12/07/24 History Mv-Min/Folic/K1/Lycopen/Lutein 1 tab PO DAILY 11/22/24 12/07/24 History [Centrum Silver Men Tablet] QUEtiapine [SEROquel] 25 mg PO BID 11/22/24 12/07/24 History Zonisamide [Zonegran] 50 mg PO BID 11/22/24 12/07/24 History Zonisamide [Zonegran] 100 mg PO BID 11/22/24 12/07/24 History Ipratropium-Albuterol Nebulize 3 ml INHALATION TID #90 ml 11/23/24 12/07/24 Rx [Duoneb 0.5 mg-3 mg/3 ml Soln] Apixaban [Eliquis] 5 mg PO BID 12/07/24 12/07/24 History Budesonide-Formot 160-4.5 Mcg 2 puff INHALATION RT-BID 12/07/24 12/07/24 History [Symbicort 160-4.5 Mcg Inhaler] Allergies Allergy/AdvReac Type Severity Reaction Status Date / Time amoxicillin Allergy Unknown Verified 12/07/24 19:03 Penicillins Allergy Unknown Verified 12/07/24 19:03 Physical Examination - Vital Signs Vital Signs: Vital Signs Temp Pulse Pulse Resp BP Pulse Ox 12/15/24 11:59 98.4 F 85 16 97/61 96 12/15/24 09:44 84 12/15/24 09:29 80 94 L 12/15/24 08:00 98.3 F 86 16 105/68 95 12/15/24 03:31 98.0 F 87 20 101/64 98 12/14/24 23:22 98.0 F 87 20 101/65 98 12/14/24 20:05 98.0 F 115 H 20 129/69 95 12/14/24 19:22 97.8 F 101 H 19 128/81 93 L 12/14/24 17:31 98.2 F 92 19 113/72 94 L 12/14/24 16:00 98.4 F 89 19 93/59 96 12/14/24 14:00 79 20 12/14/24 12:20 98.1 F 88 20 95/69 96 Intake and Output 12/14/24 12/15/24 12/15/24 21:59 06:59 14:59 Output Total 450 Balance -450 Output: Urine 450 Stool 0 Other: Voiding Method Incontinent # Bowel Movements Weight General: Lying in bed and does not appear in acute distress. Lung: Sound coarse throughout. Neuro: Limited. Patient is awake, alert oriented to self. With option he correctly stated that he is in the hospital. Patient has expressive aphasia. He follows some commands and he needed prompting. Pupils are round about 3 mm and reactive to light. No facial weakness. No dysarthria from limited language Motor: The strength is hard to assess individual muscle strength and left upper extremity seems weaker than the right upper extremity. In the lower extremities it seems the patient has significant weakness in the left lower and is 0 out of 5. Right lower extremity he is able to raise above gravity. Otherwise rest are limited. Results - Laboratory Findings CBC and BMP: 12/14/24 06:59 12/14/24 06:59 Abnormal Lab Findings: Abnormal Labs 12/07/24 12/07/24 12/07/24 17:02 17:02 17:02 RBC 4.11 L Hgb 11.8 L Hct MCHC 30.1 L Lymphocytes # Sodium 132 L Chloride 97 L Carbon Dioxide 21 L BUN 25 H Creatinine 1.42 H Glucose 256 H POC Glucose (mg/dL) Hemoglobin A1c Plasma Lactic Acid Chepe 2.5 H* Phosphorus Alkaline Phosphatase 140 H Total Protein Albumin 12/07/24 12/08/24 12/08/24 21:07 03:50 03:50 RBC 3.49 L Hgb 10.4 L Hct 34.0 L MCHC 30.5 L Lymphocytes # 0.3 L Sodium 128 L Chloride Carbon Dioxide BUN 26 H Creatinine 1.39 H Glucose 558 H* POC Glucose (mg/dL) Hemoglobin A1c Plasma Lactic Acid Chepe 2.4 H* Phosphorus 4.7 H Alkaline Phosphatase 130 H Total Protein 5.8 L Albumin 3.0 L 12/08/24 12/08/24 12/08/24 04:36 06:38 08:51 RBC Hgb Hct MCHC Lymphocytes # Sodium Chloride Carbon Dioxide BUN Creatinine Glucose POC Glucose (mg/dL) 559 H* 426 H 208 H Hemoglobin A1c Plasma Lactic Acid Chepe Phosphorus Alkaline Phosphatase Total Protein Albumin 12/08/24 12/08/24 12/08/24 12:53 16:32 19:52 RBC Hgb Hct MCHC Lymphocytes # Sodium Chloride Carbon Dioxide BUN Creatinine Glucose POC Glucose (mg/dL) 129 H 255 H 300 H Hemoglobin A1c Plasma Lactic Acid Chepe Phosphorus Alkaline Phosphatase Total Protein Albumin 12/09/24 12/09/24 12/09/24 06:19 06:26 06:26 RBC 3.78 L Hgb 11.2 L Hct 36.8 L MCHC 30.3 L Lymphocytes # Sodium Chloride Carbon Dioxide BUN Creatinine Glucose POC Glucose (mg/dL) 211 H Hemoglobin A1c 10.8 H Plasma Lactic Acid Chepe Phosphorus Alkaline Phosphatase Total Protein Albumin 12/09/24 12/09/24 12/09/24 06:26 11:30 16:16 RBC Hgb Hct MCHC Lymphocytes # Sodium 134 L Chloride Carbon Dioxide BUN 26 H Creatinine 1.46 H Glucose 220 H POC Glucose (mg/dL) 201 H 264 H Hemoglobin A1c Plasma Lactic Acid Chepe Phosphorus Alkaline Phosphatase Total Protein Albumin 12/09/24 12/10/24 12/10/24 19:44 05:44 07:12 RBC Hgb Hct MCHC Lymphocytes # Sodium 134 L Chloride Carbon Dioxide BUN 23 H Creatinine 1.30 H Glucose 159 H POC Glucose (mg/dL) 223 H 172 H Hemoglobin A1c Plasma Lactic Acid Chepe Phosphorus Alkaline Phosphatase Total Protein Albumin 12/10/24 12/10/24 12/10/24 11:29 16:24 20:25 RBC Hgb Hct MCHC Lymphocytes # Sodium Chloride Carbon Dioxide BUN Creatinine Glucose POC Glucose (mg/dL) 225 H 192 H 292 H Hemoglobin A1c Plasma Lactic Acid Chepe Phosphorus Alkaline Phosphatase Total Protein Albumin 12/11/24 12/11/24 12/11/24 05:50 07:35 07:35 RBC Hgb 12.9 L Hct MCHC 30.1 L Lymphocytes # Sodium 136 L Chloride Carbon Dioxide BUN 25 H Creatinine 1.26 H Glucose 142 H POC Glucose (mg/dL) 183 H Hemoglobin A1c Plasma Lactic Acid Chepe Phosphorus Alkaline Phosphatase Total Protein Albumin 12/11/24 12/11/24 12/11/24 16:20 20:34 22:53 RBC Hgb Hct MCHC Lymphocytes # Sodium Chloride Carbon Dioxide BUN Creatinine Glucose POC Glucose (mg/dL) 119 H 188 H 67 L Hemoglobin A1c Plasma Lactic Acid Chepe Phosphorus Alkaline Phosphatase Total Protein Albumin 12/12/24 12/12/24 12/12/24 06:02 08:10 11:49 RBC Hgb Hct MCHC Lymphocytes # Sodium 135 L Chloride Carbon Dioxide BUN 26 H Creatinine 1.33 H Glucose 142 H POC Glucose (mg/dL) 136 H 154 H Hemoglobin A1c Plasma Lactic Acid Chepe Phosphorus Alkaline Phosphatase Total Protein Albumin 3.3 L 12/12/24 12/12/24 12/13/24 16:48 19:54 05:59 RBC Hgb Hct MCHC Lymphocytes # Sodium Chloride Carbon Dioxide BUN Creatinine Glucose POC Glucose (mg/dL) 113 H 163 H 139 H Hemoglobin A1c Plasma Lactic Acid Chepe Phosphorus Alkaline Phosphatase Total Protein Albumin 12/13/24 12/13/24 12/13/24 06:59 06:59 11:39 RBC 4.28 L Hgb 12.6 L Hct MCHC 30.7 L Lymphocytes # Sodium 134 L Chloride Carbon Dioxide BUN 29 H Creatinine Glucose 129 H POC Glucose (mg/dL) 177 H Hemoglobin A1c Plasma Lactic Acid Chepe Phosphorus Alkaline Phosphatase Total Protein Albumin 12/13/24 12/13/24 12/14/24 16:29 20:11 06:59 RBC 4.12 L Hgb 12.2 L Hct MCHC Lymphocytes # Sodium Chloride Carbon Dioxide BUN Creatinine Glucose POC Glucose (mg/dL) 285 H 113 H Hemoglobin A1c Plasma Lactic Acid Chepe Phosphorus Alkaline Phosphatase Total Protein Albumin 12/14/24 12/14/24 12/14/24 06:59 11:19 20:02 RBC Hgb Hct MCHC Lymphocytes # Sodium 131 L Chloride Carbon Dioxide BUN 32 H Creatinine Glucose 69 L POC Glucose (mg/dL) 150 H 215 H Hemoglobin A1c Plasma Lactic Acid Chepe Phosphorus Alkaline Phosphatase Total Protein Albumin 12/15/24 12/15/24 06:12 11:24 RBC Hgb Hct MCHC Lymphocytes # Sodium Chloride Carbon Dioxide BUN Creatinine Glucose POC Glucose (mg/dL) 116 H 126 H Hemoglobin A1c Plasma Lactic Acid Chepe Phosphorus Alkaline Phosphatase Total Protein Albumin Assessment and Plan Assessment: This is a 79-year-old gentleman with history of a mediastinal mass in the right upper lobe secondary due to right hilar mass who presented emergency department on 12/07/2024 for shortness of breath. Patient had MRI of the brain which shows newly diagnosed brain mets over bilateral hemisphere there are numerous. Examination patient has expressive aphasia plegia over the left lower and some weakness over the left upper extremity. Newly diagnosed brain mets and he has numerous lesions over bilateral hemisphere. On examination patient has expressive aphasia, plegia over the left lower as well as some weakness over the left upper New onset seizure on 12/14/2024 due to above Primary small cell carcinoma of the lung Newly diagnosed atrial fibrillation Diabetes mellitus History of COPD History of pulmonary embolism Tobacco use Plan: The primary team placed him on Keppra 1 g twice daily and I agree with continuing the same dose Will obtain routine EEG tomorrow The patient is on Decadron 4 mg every 6 hours Oncology is on board and they are recommending radiation therapy. Will defer the rest of the medical management to primary and other specialist Recommend hospice consultation Thank you for the consultation Time with Patient: Greater than 30
[2024-12-15 16:24] LABS: Glucose,Whole Blood 130 mg/dL (70-110)
[2024-12-15 20:51] LABS: Glucose,Whole Blood 143 mg/dL (70-110)
[2024-12-16 06:11] LABS: Glucose,Whole Blood 161 mg/dL (70-110)
--- NOTE | 2024-12-16 10:52 | P.CONS ---
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 He was diagnosed her less than 1 month prior with bronchoscopy with biopsy. His MRI now reveals innumerable rim- enhancing lesions. The patient has had a seizure and has been started on Keppra and Decadron. The patient was first hospitalized in November 2024 secondary to dyspnea. A CTA of the chest performed on November 21 revealed a large right hilar mass with mediastinal adenopathy causing atelectasis of the right upper lung. Note was also made of PE involving the left lung. During this hospital stay, he had a bronchoscopy with biopsies on November 23. This revealed complete right upper lung obstruction with tumor seen involving the right mainstem bronchus and amanda. Biopsies were consistent with small cell lung cancer. The patient was discharged and arranged for follow-up with oncology and systemic imaging. Unfortunately, the patient was rehospitalized on December 07. At the time he was having increasing dyspnea and falls. He was found to be in A. fib with a rapid response. During his hospital stay a computed tomography scan of the abdomen and pelvis was performed on December 13 which was unremarkable. An MRI of the brain from December 14 however revealed innumerable rim-enhancing lesions, several of which were larger in size including a 2.8 cm right parietal lesion, a 3 cm left occipital and a 3.1 cm right cerebellar lesion. The patient had a witnessed seizure on December 15 and was started on Keppra. At the time of my consultation, the patient is arousable but continues to fall asleep. He is only able to provide short answers to my questions. Review of Systems ROS unobtainable: due to mental status Past Medical History Past Medical History: COPD, Diabetes Mellitus, Hypertension Additional Past Medical History / Comment(s): "I take a lot of medication, I don't know what I take it for" History of Any Multi-Drug Resistant Organisms: None Reported Past Surgical History: Back Surgery, Hernia Repair, Tonsillectomy Additional Past Surgical History / Comment(s): neck surgery Past Psychological History: No Psychological Hx Reported Smoking Status: Current every day smoker Past Alcohol Use History: None Reported Past Drug Use History: None Reported, Marijuana Medications and Allergies Home Medications Medication Instructions Recorded Confirmed Type Albuterol Sulfate [Albuterol 1 puff INHALATION RT-Q4H PRN 11/22/24 12/07/24 History Sulfate Hfa] FLUoxetine HCL [PROzac] 10 mg PO TID 11/22/24 12/07/24 History Gabapentin [Neurontin] 100 mg PO TID 11/22/24 12/07/24 History Mv-Min/Folic/K1/Lycopen/Lutein 1 tab PO DAILY 11/22/24 12/07/24 History [Centrum Silver Men Tablet] QUEtiapine [SEROquel] 25 mg PO BID 11/22/24 12/07/24 History Zonisamide [Zonegran] 50 mg PO BID 11/22/24 12/07/24 History Zonisamide [Zonegran] 100 mg PO BID 11/22/24 12/07/24 History Ipratropium-Albuterol Nebulize 3 ml INHALATION TID #90 ml 11/23/24 12/07/24 Rx [Duoneb 0.5 mg-3 mg/3 ml Soln] Apixaban [Eliquis] 5 mg PO BID 12/07/24 12/07/24 History Budesonide-Formot 160-4.5 Mcg 2 puff INHALATION RT-BID 12/07/24 12/07/24 History [Symbicort 160-4.5 Mcg Inhaler] Allergies Allergy/AdvReac Type Severity Reaction Status Date / Time amoxicillin Allergy Unknown Verified 12/07/24 19:03 Penicillins Allergy Unknown Verified 12/07/24 19:03 Physical Exam Vitals: Vital Signs Temp Pulse Pulse Resp BP Pulse Ox 12/16/24 09:34 85 18 12/16/24 09:32 98.0 F 85 18 107/68 96 12/16/24 03:31 98.0 F 86 20 103/71 94 L 12/16/24 01:08 16 12/16/24 00:23 98.2 F 92 20 127/74 93 L 12/15/24 21:51 88 12/15/24 21:44 16 12/15/24 21:38 86 12/15/24 19:34 98.0 F 86 20 115/76 96 12/15/24 16:53 82 12/15/24 16:43 83 12/15/24 16:00 98.1 F 83 22 99/61 96 12/15/24 13:30 85 16 12/15/24 11:59 98.4 F 85 16 97/61 96 Intake and Output 12/15/24 12/16/24 12/16/24 22:59 06:59 14:59 Intake Total 10 Output Total 200 0 Balance -200 0 10 Intake: IV 10 Invasive Line 4 10 Output: Urine 200 Stool 0 0 Other: Voiding Method Incontinent Incontinent Incontinent # Voids 1 Weight 83 kg - Constitutional General appearance: disheveled, no acute distress - EENT Eyes: EOMI, PERRLA ENT: hearing grossly normal - Neck Neck: no lymphadenopathy - Respiratory Respiratory: bilateral: rhonchi - Cardiovascular Rhythm: regular - Gastrointestinal General gastrointestinal: soft, no tenderness - Integumentary Integumentary: no rash - Neurologic Neurologic: CNII-XII intact - Musculoskeletal Musculoskeletal: strength equal bilaterally (Patient moves all extremities to command, but very sluggish moving LLE. 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 He was diagnosed her less than 1 month prior with bronchoscopy with biopsy. His MRI now reveals innumerable rim- enhancing lesions. The patient has had a seizure and has been started on Keppra and Decadron. Plan: 1. Numerous brain metastases: As detailed above, the patient unfortunately presents with innumerable brain metastases secondary to his underlying small cell lung cancer. He has been initiated on Decadron, as well as Keppra for a recent seizure. EEG was performed this morning; we will await results. Unfortunately I was not able to have a detailed discussion with the patient as he was difficult to arouse. Certainly, depending on the patient's performance status, he may benefit from whole brain radiotherapy. However, the patient would need to be able to cooperate with CT simulation and radiation planning. We will re-evaluate the patient a little later today. 2. Small-cell lung cancer (Extensive): Initially, there was no obvious evidence of extensive stage disease. However the patient now has the aforementioned innumerable brain metastases. He has been evaluated by medical oncology, and if he is able to improve clinically would likely be a candidate for chemo immunotherapy. Time with Patient: Greater than 30
[2024-12-16 11:14] LABS: Glucose,Whole Blood 199 mg/dL (70-110)
--- NOTE | 2024-12-16 13:58 | FL ---
Modified barium swallow. HISTORY: Dysphagia. Modified barium swallow was performed with the department of speech pathology. The patient was prese nted with various consistencies of barium. There is no evidence for aspiration. Deep transient penetration noted with various mixtures of presen haley barium. Full report is to follow from the department of speech pathology. Impression: Deep transient penetration noted with various mixtures of presented barium. [facility], , 12/16/2024 1:55 PM
--- NOTE | 2024-12-16 14:03 | P.PN ---
Subjective Progress Note Date: 12/16/24 I am following-up with the patient and no further seizures. He feels he is doing well. Objective - Vital Signs Vital signs: Vital Signs Temp 98.0 F 12/16/24 09:32 Pulse 95 12/16/24 12:45 Resp 18 12/16/24 11:43 BP 111/73 12/16/24 11:43 Pulse Ox 96 12/16/24 11:43 FiO2 Intake & Output 12/15/24 12/16/24 12/16/24 18:59 06:59 18:59 Intake Total 10 Output Total 650 0 100 Balance -650 0 -90 Weight 83 kg Intake: IV 10 Invasive Line 4 10 Output: Urine 650 100 Stool 0 0 Other: Voiding Method Incontinent Incontinent Incontinent # Voids 1 - Exam General: Lying in bed and does not appear in acute distress. Neuro: Limited. Patient is awake, alert oriented to self, place and stated year is 1922. Patient is following simple commands. He expressive aphasia but is better today. Pupils are round about 3 mm and reactive to light. No facial weakness. No dysarthria. Motor: The strength is hard to assess individual muscle strength and left upper extremity seems weaker than the right upper extremity. In the lower extremities it seems the patient has significant weakness in the left lower and is 0 out of 5. Right lower extremity he is able to raise above gravity. Some of the workup during this hospital visit consisted of: Sodium most recent 1 is 131 Patient glucose is brittle. Was as high as 558 and most recent one is 69 yesterday. Hemoglobin A1c is 10.8 MRI of the brain with and without is reported as marked metastasis disease throughout the brain. There is no shift of the midline structure. I reviewed the MRI and I do agree the patient has numerous brain mets over bilateral hemisphere - Labs CBC & Chem 7: 12/14/24 06:59 12/14/24 06:59 Labs: Abnormal Lab Results - Last 24 Hours (Table) 12/15/24 12/15/24 12/16/24 Range/Units 16:22 20:50 06:09 POC Glucose (mg/dL) 130 H 143 H 161 H (70-110) mg/dL 12/16/24 Range/Units 11:12 POC Glucose (mg/dL) 199 H (70-110) mg/dL Assessment and Plan Assessment: This is a 79-year-old gentleman with history of a mediastinal mass in the right upper lobe secondary due to right hilar mass who presented emergency department on 12/07/2024 for shortness of breath. Patient had MRI of the brain which shows newly diagnosed brain mets over bilateral hemisphere there are numerous. Examination patient has expressive aphasia plegia over the left lower and some weakness over the left upper extremity. Newly diagnosed brain mets and he has numerous lesions over bilateral hemisphere. On examination patient has expressive aphasia, plegia over the left lower as well as some weakness over the left upper New onset seizure on 12/14/2024 due to above Primary small cell carcinoma of the lung Newly diagnosed atrial fibrillation Diabetes mellitus History of COPD History of pulmonary embolism Tobacco use Plan: The primary team placed him on Keppra 1 g twice daily and I agree with con tinuing the same dose Pending routine EEG tomorrow The patient is on Decadron 4 mg every 6 hours Oncology is on board and they are recommending radiation therapy. Will defer the rest of the medical management to primary and other specialist Recommend hospice consultation The plan is discussed with patient and his nurse. Time with Patient: Less than 30
[2024-12-16 16:45] LABS: Glucose,Whole Blood 325 mg/dL (70-110)
[2024-12-16 20:29] LABS: Glucose,Whole Blood 346 mg/dL (70-110)
--- NOTE | 2024-12-16 20:52 | P.PN ---
Progress Note - Text Progress Note Date: 12/16/24 79-year-old male came in after a fall patient denied any shortness of breath at this time. Patient is found to be in atrial fibrillation with rapid unclear rate this is new onset A-fib patient is presently sinus rhythm rate controlled. Patient was eval by cardiology was started on Anticoagulation and rate control medications. Patient has elevated proBNP with chest x-ray did not show any congestive heart failure patient has been n.p.o. 6000 although patient appears to be volume depleted clinically patient is hypotensive and hyponatremic. Patient does not have any elevated JVD or pedal edema. Patient fall is not secondary to syncope but he slipped and fell. Patient was recently hospitalized and found to have a mass in the right upper lobe patient quit smoking does not have any history of COPD as per the patient does not use any oxygen at home. Patient is saturating 100% on 2 L. Patient is supposed to follow-up with Dr. Quarles as an outpatient but did not make an appointment yet, patient is supposed to follow-up with oncology as well as an outpatient. Is not a known diabetic but his blood sugars are in 500s I do not have any hemoglobin A1c available at this time. Patient was started on IV insulin. Patient also had mild lactic acidosis. Patient serum creatinine is 1.4 on admission came down to 1.3 patient has chronic history of chronic kidney disease. 12/09/2024 Patient is seen in follow-up today with cardiology following underwent 2D echo and read is pending at this time. Patient currently receiving a breathing treatment and reports continued shortness of breath. Patient is maintaining 98% on 2 L of oxygen. Patient does not normally wear oxygen outpatient. Wean FiO2 as tolerated. Patient also to be evaluated by physical therapy with generalized weakness. Hemoglobin A1c is 7.9 and diabetes is new onset as well. Patient is afebrile and denies chest pain or palpitations. 12/10/2024 Patient is seen in follow-up today and 2D echo was noted to be 15-20% EF. Cardiology following making adjustments to medications and blood pressures have been on the lower side. Patient continues to have some wheezing noted maintained on breathing treatments as well as supplemental oxygen. Encouraged the patient to get up more frequently and sit up in the chair. PT/OT therapy is evaluate the patient recommending rehab and patient is agreeable. Continue monitoring Accu-Cheks ACHS and will adjust accordingly. 12/11/2024 Patient is seen in follow-up today with cardiology following making adjustments to medications and discussing possible cardiac catheterization although recommending evaluation by oncology for recently diagnosed small cell lung carcinoma status post bronchoscopy with biopsy with pulmonary last month. Patient is reporting shortness of breath although no worsening and continues with significant weakness. Case management/social work following as physical therapy evaluated recommending rehab and patient was agreeable. Patient has been accepted at [facility] pending insurance authorization. Patient is currently afebrile with no reported chest pains or palpitations. Continue telemetry monitoring and will discuss further with consultations regarding treatment plan moving forward. 12/12/2024 Evaluated in follow-up on the cardiac floor, he is sitting up in the chair. he is not having any Acute complaints at this time not reporting any discomfort or shortness of breath. Discussed with oncology that they have evaluate this patient his prior admission and patient is already set up with Dr. Brown in the office to establish care. He was initially planned to undergo PET scan outpatient but as patient is currently hospitalized oncology will proceed with staging during this admission and patient be going for a CT abdomen pelvis as well as a brain MRI. At this time oncology is recommending to proceed with any type of cardiac intervention if needed as they are unable to stage this patient without all the appropriate testing completed. Labs today reveal a sodium level of 135, BUN of 26 creatinine 1.33. He remains afebrile he is on room air with oxygen saturations of 97 to 98%. His blood pressure is marginal in the 90s to 80s systolic. 12/13/2024 Patient is seen and evaluated in follow-up with multiple consultations following. Cardiology with no plans of cardiac catheterization at this time recommending maximizing medical management and outpatient follow-up for further intervention. Patient undergoing further imaging including CT abdomen pelvis along with MRI of the brain which is pending at this time per oncology as outpatient PET scan has been canceled for now. Patient denies chest pain or shortness of breath and is currently on room air. Patient continues to receive DuoNeb treatments and will continue. Patient with weakness being evaluated for rehab and has been accepted at [facility] with insurance authorization being obtained. Authorization is good through Monday. 12/14 Patient awake alert, looks comfortable lying in bed He denies any respiratory issue like no chest pain or dyspnea. Yesterday he had CT of the abdomen and pelvis for part of his staging disease for his lung cancer and right upper lung mass, it shows no lymphadenopathy but there is some evidence of pneumomediastinum most likely related to his bronchoscopy. Patient says that he has bronchoscopy about 1 week ago. Also there is evidence of subcarinal lymphadenopathy suspicious for metastatic disease and there is also prostatomegaly which can be followed as an outpatient As part of his further workup patient is going for MRI of the brain today. No other new complaint and he is hemodynamically stable, blood pressure slightly on the low side 86/57 Creatinine 1.2. He is continued on Eliquis 5 mg. Losartan on hold. 12/15 Patient developed a seizure overnight and was started on IV Keppra 1000 milligram twice daily and Ativan as needed EEG is requested MRI of the brain showing extensive metastatic disease throughout the brain. After the seizure he looks lethargic, currently has mild headache and dizziness He does have some gurgly heart sounds a repeat chest x-ray is requested, I reviewed the x-ray by myself showing better infiltrate in the left lower lung zone however official report is pending, currently n.p.o. and speech evaluation is requested He was started also on dexamethasone Daughter was contacted yesterday by staff and she made him DNR December 16: Patient remains delirious. Though bit better in the afternoon. I met with patient's daughter Elizabeth and a cousin at the bedside. Patient not able to lay still for too long. Hence trouble with brain radiation. Elizabeth informed me that patient does not want any chemotherapy. And she wishes to respect that. Also because they live in [place] transport is a big issue. She herself had to get help from a cousin to drive up to the hospital. She is more keen for hospice. I did speak to Dr. Jonas Martínez from oncology and Dr. Huseyin Gan from radiation. Patient has poor functional status. Plan at this point is to see if patient has significant improvement by tomorrow morning he may still get some radiation treatment. Otherwise plan for hospice at home. She would like to use [facility] hospice. Consultation for informational visit is being done. Total time spent today about 1 hour with over 45 minutes of discussion. Active Medications Acetaminophen (Acetaminophen Tab 325 Mg Tab) 650 mg PO Q6HR PRN PRN Reason: Pain Last Admin: 12/10/24 18:25 Dose: 650 mg Albuterol/Ipratropium (Ipratropium-Albuterol 3 Ml Neb) 3 ml INHALATION RT-TID PRN PRN Reason: Shortness Of Breath Or Wheezing Last Admin: 12/08/24 03:54 Dose: 3 ml Albuterol/Ipratropium (Ipratropium-Albuterol 3 Ml Neb) 3 ml INHALATION RT-TID [facility] Last Admin: 12/16/24 12:33 Dose: 3 ml Budesonide/Formoterol Fumarate (Symbicort 160-4.5 Mcg Inhaler) 2 puff INHALATION RT-BID [facility] Last Admin: 12/16/24 09:23 Dose: Not Given Dapagliflozin (Dapagliflozin Propanediol 10 Mg Tablet) 10 mg PO DAILY [facility] Last Admin: 12/16/24 13:31 Dose: 10 mg Dexamethasone Sodium Phosphate (Dexamethasone Sod Phosphate 4 Mg/Ml 1 Ml Vial) 4 mg IVP Q6HR [facility] Last Admin: 12/16/24 16:57 Dose: 4 mg Dextrose/Water (Dextrose 50% Syringe 50 Ml) 25 ml IVP PER PROTOCOL PRN; Protocol PRN Reason: Hypoglycemia Dextrose/Water (Dextrose 50% Syringe 50 Ml) 50 ml IVP PER PROTOCOL PRN; Protocol PRN Reason: Hypoglycemia Fluoxetine HCl (Fluoxetine Hcl 10 Mg Cap) 10 mg PO TID [facility] Last Admin: 12/16/24 20:34 Dose: 10 mg Gabapentin (Gabapentin 100 Mg Cap) 100 mg PO TID [facility] Last Admin: 12/16/24 20:34 Dose: 100 mg Guaifenesin (Guaifenesin 600 Mg Tablet.Er) 600 mg PO Q12HR PRN PRN Reason: Congestion Insulin Glargine (Insulin Glargine (Lantus) 100 Unit/Ml Syr) 28 unit SQ DAILY@0700 [facility] Last Admin: 12/16/24 06:23 Dose: Not Given Insulin Human Lispro (Insulin Lispro (Humalog) 100 Unit/Ml 10 Ml Vl) 0 unit SQ [facility]; Protocol Last Admin: 12/16/24 20:33 Dose: 4 unit Levetiracetam (Levetiracetam Iv 500 Mg/5 Ml Vial) 1,000 mg IVP Q12HR [facility] Last Admin: 12/16/24 20:03 Dose: 1,000 mg Lorazepam (Lorazepam 1 Mg/0.5 Ml Vial) 1 mg IV Q4HR PRN PRN Reason: Seizures Losartan Potassium (Losartan 25 Mg Tab) 25 mg PO DAILY [facility] Last Admin: 12/16/24 13:31 Dose: 25 mg Metoprolol Succinate (Metoprolol Succinate (Er) 25 Mg Tab.Er.24h) 25 mg PO DAILY [facility] Last Admin: 12/16/24 13:31 Dose: 25 mg Naloxone HCl (Naloxone 0.4 Mg/Ml 1 Ml Vial) 0.2 mg IV Q2M PRN PRN Reason: Opioid Reversal Olanzapine (Olanzapine 10 Mg Vial) 2.5 mg IM TID PRN PRN Reason: Agitation Last Admin: 12/15/24 00:13 Dose: 2.5 mg Ondansetron HCl (Ondansetron 4 Mg/2 Ml Vial) 4 mg IVP Q8HR PRN PRN Reason: Nausea And Vomiting Pantoprazole Sodium (Pantoprazole 40 Mg Tablet) 40 mg PO AC-BRKFST [facility] Last Admin: 12/16/24 05:18 Dose: Not Given Quetiapine Fumarate (Quetiapine 25 Mg Tab) 25 mg PO BID [facility] Last Admin: 12/16/24 20:34 Dose: Not Given Spironolactone (Spironolactone 25 Mg Tab) 12.5 mg PO DAILY [facility] Last Admin: 12/16/24 13:31 Dose: 12.5 mg Physical examination: VITAL SIGNS: 97.8, 80, 19, 106 x 69, 96% room air GENERAL: Reclining bed, bit tired EYES: Pupils equal. Conjunctiva poonam l. HEENT: External appearance of nose and ears normal, oral cavity grossly normal. NECK: JVD not raised; masses not palpable. HEART: First and second heart sounds are normal; no edema. LUNGS: Respiratory rate increased, diminished basilar breath sounds, some wheezing ABDOMEN: Soft, but distended, soft nontender, liver spleen not palpable, no masses palpable. PSYCH: Will answer some questions. According to the daughter not able to say his cousin's name correct. A bit lethargic. MUSCULOSKELETAL:No Clubbing/cyanosis;muscles-grossly intact INVESTIGATIONS, reviewed in the clinical context: December 14: White count 7 hemoglobin 12.2 platelets 393 sodium 131 potassium 4.5 creatinine 1.25 Brain MRI: Marked metastatic disease throughout the brain. No midline shift. Modified barium swallow: Deep transient penetration noted. CT abdomen pelvis: Prostatomegaly. Moderate coronary artery and aortic valve calcification. Subcarinal lymph node. 2D echo: EF 50 to 20%. Cannot exclude apical thrombus.Mild to moderate MR. Assessment plan: -Acute metabolic encephalopathy from brain metastasis: Slow improvement Decadron 4 mg IV every 6 -Cardiomyopathy, EF 15 to 20%, ischemic versus nonischemic, Given patient's poor functional status. And overall guarded prognosis. Cardiac catheterization this point not of any value -Extensive metastatic brain disease, with seizure activity. On Keppra and dexamethasone and Ativan as needed -New onset diabetes mellitus, type II, uncontrolled with hyperglycemia, hemoglobin A1c 7.9, and will continue with sliding scale and long-acting and adjust accordingly. -Acute renal failure: Probably due to intravascular depletion, improving patient is also on losartan with decreased blood pressures this could be attributing to his creatinine and would recommend to hold the losartan we will leave this up to cardiology at this time. -Hyponatremia hypoosmolar hyponatremia -Right upper lobe mass status post recent bronchoscopy with recent diagnosis of small cell lung carcinoma, with brain metastasis. Patient seen by Dr. Jonas Martínez. Daughter informed. Patient does not want chemotherapy and she wishes to respect patient's wishes. -COPD history, presently not in acute exacerbation DuoNeb -Generalized weakness with gait dysfunction, patient evaluated by physical therapy recommending rehab and patient is agreeable. Patient will be going to rehab on discharge. Patient will be going to [facility] and has received insurance authorization awaiting finalized testing per oncology before discharge -DNR Advance care planning [December 16, 2024 This was discussed with patient daughter at the bedside. Daughter's cousin also present at the bedside. Patient lives in [place] with his daughter. Daughter does not have any transport. It was discussed that patient needs to remain still for any rate brain radiation. Currently not possible. As patient still a bit delirious. Also patient does not want any chemotherapy as expressed per her daughter. She is taking care of 2 other family members at home with hospice and keen for that. Shown interest to use [facility]. Informa tional visit will be done.
--- NOTE | 2024-12-16 22:36 | EEG ---
ELECTROENCEPHALOGRAM REPORT CLINICAL HISTORY: This is a 79-year-old gentleman with newly diagnosed brain metastasis, who has new onset seizure- like activity. The video EEG is obtained to evaluate for seizure epileptiform activity. RELEVANT MEDICATION: Keppra. EEG TYPE: This is a routine 21-channel EEG with video using the 10/20 electrode placement system. DESCRIPTION: Wakefulness and drowsiness are obtained. During the awake state, the background consists of [id number] voltage of 6 Hz activity that is well modulated and well sustained. There is no physiological stage 2 sleep architecture. There is no focal slowing. Interictal and ictal are none. ACTIVATION PROCEDURE: Photic stimulation did not evoke a posterior driving response. There is no abnormality during the photic stimulation. Hyperventilation is not performed. CLINICAL INTERPRETATION: This is an abnormal routine EEG. The background slowing is suggestive of mild-to- moderate encephalopathy. Otherwise, there is no focal slowing, epileptiform discharge, or seizure on the EEG. Lack of epileptiform discharges does not rule out underlying epilepsy. Clinical correlation is recommended. MMGABE / BRADLYN: [id number] / [id number]
[2024-12-17 06:10] LABS: Glucose,Whole Blood 287 mg/dL (70-110)
--- NOTE | 2024-12-17 13:51 | P.PN ---
Progress Note - Text Progress Note Date: 12/17/24 I was updated by the oncology nurse practitioner that the patient is pursuing hospice. As a result, no further neurological workup. Will sign off. Please reconsult if needed.
[2024-12-17 15:38] VITALS: BMI 27.0
[2024-12-17] MEDS: LORazepam 1 MG/0.5 ML VIAL IV PRN (15:42)
[2024-12-17] MEDS: ONDANSETRON 4 MG/2 ML VIAL IVP PRN (15:42)
--- NOTE | 2024-12-17 16:40 | P.PN ---
Progress Note - Text Progress Note Date: 12/17/24 79-year-old male came in after a fall patient denied any shortness of breath at this time. Patient is found to be in atrial fibrillation with rapid unclear rate this is new onset A-fib patient is presently sinus rhythm rate controlled. Patient was eval by cardiology was started on Anticoagulation and rate control medications. Patient has elevated proBNP with chest x-ray did not show any congestive heart failure patient has been n.p.o. 6000 although patient appears to be volume depleted clinically patient is hypotensive and hyponatremic. Patient does not have any elevated JVD or pedal edema. Patient fall is not secondary to syncope but he slipped and fell. Patient was recently hospitalized and found to have a mass in the right upper lobe patient quit smoking does not have any history of COPD as per the patient does not use any oxygen at home. Patient is saturating 100% on 2 L. Patient is supposed to follow-up with Dr. Quarles as an outpatient but did not make an appointment yet, patient is supposed to follow-up with oncology as well as an outpatient. Is not a known diabetic but his blood sugars are in 500s I do not have any hemoglobin A1c available at this time. Patient was started on IV insulin. Patient also had mild lactic acidosis. Patient serum creatinine is 1.4 on admission came down to 1.3 patient has chronic history of chronic kidney disease. 12/09/2024 Patient is seen in follow-up today with cardiology following underwent 2D echo and read is pending at this time. Patient currently receiving a breathing treatment and reports continued shortness of breath. Patient is maintaining 98% on 2 L of oxygen. Patient does not normally wear oxygen outpatient. Wean FiO2 as tolerated. Patient also to be evaluated by physical therapy with generalized weakness. Hemoglobin A1c is 7.9 and diabetes is new onset as well. Patient is afebrile and denies chest pain or palpitations. 12/10/2024 Patient is seen in follow-up today and 2D echo was noted to be 15-20% EF. Cardiology following making adjustments to medications and blood pressures have been on the lower side. Patient continues to have some wheezing noted maintained on breathing treatments as well as supplemental oxygen. Encouraged the patient to get up more frequently and sit up in the chair. PT/OT therapy is evaluate the patient recommending rehab and patient is agreeable. Continue monitoring Accu-Cheks ACHS and will adjust accordingly. 12/11/2024 Patient is seen in follow-up today with cardiology following making adjustments to medications and discussing possible cardiac catheterization although recommending evaluation by oncology for recently diagnosed small cell lung carcinoma status post bronchoscopy with biopsy with pulmonary last month. Patient is reporting shortness of breath although no worsening and continues with significant weakness. Case management/social work following as physical therapy evaluated recommending rehab and patient was agreeable. Patient has been accepted at [facility] pending insurance authorization. Patient is currently afebrile with no reported chest pains or palpitations. Continue telemetry monitoring and will discuss further with consultations regarding treatment plan moving forward. 12/12/2024 Evaluated in follow-up on the cardiac floor, he is sitting up in the chair. he is not having any Acute complaints at this time not reporting any discomfort or shortness of breath. Discussed with oncology that they have evaluate this patient his prior admission and patient is already set up with Dr. Brown in the office to establish care. He was initially planned to undergo PET scan outpatient but as patient is currently hospitalized oncology will proceed with staging during this admission and patient be going for a CT abdomen pelvis as well as a brain MRI. At this time oncology is recommending to proceed with any type of cardiac intervention if needed as they are unable to stage this patient without all the appropriate testing completed. Labs today reveal a sodium level of 135, BUN of 26 creatinine 1.33. He remains afebrile he is on room air with oxygen saturations of 97 to 98%. His blood pressure is marginal in the 90s to 80s systolic. 12/13/2024 Patient is seen and evaluated in follow-up with multiple consultations following. Cardiology with no plans of cardiac catheterization at this time recommending maximizing medical management and outpatient follow-up for further intervention. Patient undergoing further imaging including CT abdomen pelvis along with MRI of the brain which is pending at this time per oncology as outpatient PET scan has been canceled for now. Patient denies chest pain or shortness of breath and is currently on room air. Patient continues to receive DuoNeb treatments and will continue. Patient with weakness being evaluated for rehab and has been accepted at [facility] with insurance authorization being obtained. Authorization is good through Monday. 12/14 Patient awake alert, looks comfortable lying in bed He denies any respiratory issue like no chest pain or dyspnea. Yesterday he had CT of the abdomen and pelvis for part of his staging disease for his lung cancer and right upper lung mass, it shows no lymphadenopathy but there is some evidence of pneumomediastinum most likely related to his bronchoscopy. Patient says that he has bronchoscopy about 1 week ago. Also there is evidence of subcarinal lymphadenopathy suspicious for metastatic disease and there is also prostatomegaly which can be followed as an outpatient As part of his further workup patient is going for MRI of the brain today. No other new complaint and he is hemodynamically stable, blood pressure slightly on the low side 86/57 Creatinine 1.2. He is continued on Eliquis 5 mg. Losartan on hold. 12/15 Patient developed a seizure overnight and was started on IV Keppra 1000 milligram twice daily and Ativan as needed EEG is requested MRI of the brain showing extensive metastatic disease throughout the brain. After the seizure he looks lethargic, currently has mild headache and dizziness He does have some gurgly heart sounds a repeat chest x-ray is requested, I reviewed the x-ray by myself showing better infiltrate in the left lower lung zone however official report is pending, currently n.p.o. and speech evaluation is requested He was started also on dexamethasone Daughter was contacted yesterday by staff and she made him DNR December 16: Patient remains delirious. Though bit better in the afternoon. I met with patient's daughter Elizabeth and a cousin at the bedside. Patient not able to lay still for too long. Hence trouble with brain radiation. Elizabeth informed me that patient does not want any chemotherapy. And she wishes to respect that. Also because they live in [place] transport is a big issue. She herself had to get help from a cousin to drive up to the hospital. She is more keen for hospice. I did speak to Dr. Jonas Martínze from oncology and Dr. Huseyin Gan from radiation. Patient has poor functional status. Plan at this point is to see if patient has significant improvement by tomorrow morning he may still get some radiation treatment. Otherwise plan for hospice at home. She would like to use [facility] hospice. Consultation for informational visit is being done. Total time spent today about 1 hour with over 45 minutes of discussion. December 17: Patient remains tired. Eating about 50 to 75%.40s I received a communication with Dr. Huseyin Gan from radiation. Not a candidate sh for radiation because of his mental status and poor activity tolerance . Plan was for patient to go home with hospice. Hospice team called out to me that did not have legal paperwork as she will have to wait for the court to to jeannie guardianship.. [place] has been added for pain. And scopolamine patch for nausea. Active Medications Acetaminophen (Acetaminophen Tab 325 Mg Tab) 650 mg PO Q6HR PRN PRN Reason: Pain Last Admin: 12/17/24 15:29 Dose: 650 mg Hydrocodone Bitart/Acetaminophen (Hydrocodone/Apap 5-325mg 1 Each Tab) 1 each PO Q6HR PRN PRN Reason: Pain Albuterol/Ipratropium (Ipratropium-Albuterol 3 Ml Neb) 3 ml INHALATION RT-TID PRN PRN Reason: Shortness Of Breath Or Wheezing Last Admin: 12/08/24 03:54 Dose: 3 ml Albuterol/Ipratropium (Ipratropium-Albuterol 3 Ml Neb) 3 ml INHALATION RT-TID [facility] Last Admin: 12/17/24 15:00 Dose: 3 ml Budesonide/Formoterol Fumarate (Symbicort 160-4.5 Mcg Inhaler) 2 puff INHALATION RT-BID [facility] Last Admin: 12/17/24 09:36 Dose: 2 puff Dapagliflozin (Dapagliflozin Propanediol 10 Mg Tablet) 10 mg PO DAILY [facility] Last Admin: 12/17/24 10:50 Dose: 10 mg Dexamethasone Sodium Phosphate (Dexamethasone Sod Phosphate 4 Mg/Ml 1 Ml Vial) 4 mg IVP Q6HR [facility] Last Admin: 12/17/24 12:59 Dose: 4 mg Dextrose/Water (Dextrose 50% Syringe 50 Ml) 25 ml IVP PER PROTOCOL PRN; Protocol PRN Reason: Hypoglycemia Dextrose/Water (Dextrose 50% Syringe 50 Ml) 50 ml IVP PER PROTOCOL PRN; Protocol PRN Reason: Hypoglycemia Fluoxetine HCl (Fluoxetine Hcl 10 Mg Cap) 10 mg PO TID [facility] Last Admin: 12/17/24 10:49 Dose: 10 mg Gabapentin (Gabapentin 100 Mg Cap) 100 mg PO TID [facility] Last Admin: 12/17/24 15:29 Dose: 100 mg Guaifenesin (Guaifenesin 600 Mg Tablet.Er) 600 mg PO Q12HR PRN PRN Reason: Congestion Insulin Glargine (Insulin Glargine (Lantus) 100 Unit/Ml Syr) 28 unit SQ DAILY@0700 [facility] Last Admin: 12/17/24 06:25 Dose: 28 unit Insulin Human Lispro (Insulin Lispro (Humalog) 100 Unit/Ml 10 Ml Vl) 0 unit SQ [facility]; Protocol Last Admin: 12/17/24 13:00 Dose: 3 unit Levetiracetam (Levetiracetam Iv 500 Mg/5 Ml Vial) 1,000 mg IVP Q12HR [facility] Last Admin: 12/17/24 10:49 Dose: 1,000 mg Lorazepam (Lorazepam 1 Mg/0.5 Ml Vial) 1 mg IV Q4HR PRN PRN Reason: Seizures Last Admin: 12/17/24 15:42 Dose: 1 mg Losartan Potassium (Losartan 25 Mg Tab) 25 mg PO DAILY [facility] Last Admin: 12/17/24 10:50 Dose: 25 mg Metoprolol Succinate (Metoprolol Succinate (Er) 25 Mg Tab.Er.24h) 25 mg PO DAILY [facility] Last Admin: 12/17/24 10:50 Dose: 25 mg Naloxone HCl (Naloxone 0.4 Mg/Ml 1 Ml Vial) 0.2 mg IV Q2M PRN PRN Reason: Opioid Reversal Olanzapine (Olanzapine 10 Mg Vial) 2.5 mg IM TID PRN PRN Reason: Agitation Last Admin: 12/15/24 00:13 Dose: 2.5 mg Ondansetron HCl (Ondansetron 4 Mg/2 Ml Vial) 4 mg IVP Q8HR PRN PRN Reason: Nausea And Vomiting Last Admin: 12/17/24 15:42 Dose: 4 mg Pantoprazole Sodium (Pantoprazole 40 Mg Tablet) 40 mg PO AC-BRKFST [facility] Last Admin: 12/17/24 06:25 Dose: 40 mg Quetiapine Fumarate (Quetiapine 25 Mg Tab) 25 mg PO BID [facility] Last Admin: 12/17/24 10:49 Dose: 25 mg Spironolactone (Spironolactone 25 Mg Tab) 12.5 mg PO DAILY [facility] Last Admin: 12/17/24 10:48 Dose: 12.5 mg Physical examination: VITAL SIGNS: Afebrile, 80, 18, 100/59, 95% room air GENERAL: Reclining bed, tired. EYES: Pupils equal. Conjunctiva poonam l. HEENT: External appearance of nose and ears normal, oral cavity grossly normal. NECK: JVD not raised; masses not palpable. HEART: First and second heart sounds are normal; no edema. LUNGS: Respiratory rate increased, diminished basilar breath sounds, some wheezing ABDOMEN: Soft, but distended, soft nontender, liver spleen not palpable, no masses palpable. PSYCH: Will answer some questions. Mentation fluctuating. MUSCULOSKELETAL:No Clubbing/cyanosis;muscles-grossly intact INVESTIGATIONS, reviewed in the clinical context: EEG [December 16, 2024] suggestive of encephalopathy. No epileptiform activity. December 14: White count 7 hemoglobin 12.2 platelets 393 sodium 131 potassium 4.5 creatinine 1.25 Brain MRI: Marked metastatic disease throughout the brain. No midline shift. Modified barium swallow: Deep transient penetration noted. CT abdomen pelvis: Prostatomegaly. Moderate coronary artery and aortic valve calcification. Subcarinal lymph node. 2D echo: EF 50 to 20%. Cannot exclude apical thrombus.Mild to moderate MR. Assessment plan: -Acute metabolic encephalopathy from brain metastasis: Slow improvement Decadron 4 mg IV every 6 -Cardiomyopathy, EF 15 to 20%, ischemic versus nonischemic, Given patient's poor functional status. And overall guarded prognosis. Cardiac catheterization this point not of any value -Extensive metastatic brain disease, with seizure activity. On Keppra and dexamethasone and Ativan as needed -New onset diabetes mellitus, type II, uncontrolled with hyperglycemia, hemoglobin A1c 7.9, and will continue with sliding scale and long-acting and adjust accordingly. -Acute renal failure: Probably due to intravascular depletion, improving patient is also on losartan with decreased blood pressures this could be attributing to his creatinine and would recommend to hold the losartan we will leave this up to cardiology at this time. -Hyponatremia hypoosmolar hyponatremia -Right upper lobe mass status post recent bronchoscopy with recent diagnosis of small cell lung carcinoma, with brain metastasis. Patient seen by Dr. Jonas Martínez. Daughter informed. Patient does not want chemotherapy and she wishes to respect patient's wishes. Patient not a candidate for radiation because of poor functional status and not delirium/altered mentation. -COPD history, presently not in acute exacerbation DuoNeb -Generalized weakness with gait dysfunction, patient evaluated by physical therapy recommending rehab and patient is agreeable. Patient will be going to rehab on discharge. Patient will be going to [facility] and has received insurance authorization awaiting finalized testing per oncology before discharge -DNR Advance care planning [December 16, 2024 This was discussed with patient daughter at the bedside. Daughter's cousin also present at the bedside. Patient lives in [place] with his daughter. [facility]. It was discussed that patient needs to remain still for any rate brain radiation. Currently not possible. As patient still a bit delirious. Also patient does not want any chemotherapy as expressed per her daughter. She is taking care of 2 other family members at home with hospice and keen for that. Shown interest to use [facility] hospice. Informational visit will be done. Daughter is not does not have the legal paperwork. Hospice team is having the daughter go to the court to get formal guardianship. So that patient can be signed onto hospice.
[2024-12-17 17:26] LABS: Glucose,Whole Blood 374 mg/dL (70-110)
[2024-12-17] MEDS: HYDROcodone/APAP 5-325MG 1 EACH TAB PO PRN (19:05)
[2024-12-17 20:17] LABS: Glucose,Whole Blood 465 mg/dL (70-110)
[2024-12-17] MEDS: SCOPOLAMINE 1 MG/72 HR PATCH TRANSDERM STA (20:17)
[2024-12-17 22:45] LABS: Glucose,Whole Blood 169 mg/dL (70-110)
[2024-12-18 06:28] LABS: Glucose,Whole Blood 203 mg/dL (70-110)
[2024-12-18 11:16] LABS: Glucose,Whole Blood 155 mg/dL (70-110)
[2024-12-18 16:19] LABS: Glucose,Whole Blood 189 mg/dL (70-110)
--- NOTE | 2024-12-18 18:42 | P.PN ---
Progress Note - Text Progress Note Date: 12/18/24 79-year-old male came in after a fall patient denied any shortness of breath at this time. Patient is found to be in atrial fibrillation with rapid unclear rate this is new onset A-fib patient is presently sinus rhythm rate controlled. Patient was eval by cardiology was started on Anticoagulation and rate control medications. Patient has elevated proBNP with chest x-ray did not show any congestive heart failure patient has been n.p.o. 6000 although patient appears to be volume depleted clinically patient is hypotensive and hyponatremic. Patient does not have any elevated JVD or pedal edema. Patient fall is not secondary to syncope but he slipped and fell. Patient was recently hospitalized and found to have a mass in the right upper lobe patient quit smoking does not have any history of COPD as per the patient does not use any oxygen at home. Patient is saturating 100% on 2 L. Patient is supposed to follow-up with Dr. Quarles as an outpatient but did not make an appointment yet, patient is supposed to follow-up with oncology as well as an outpatient. Is not a known diabetic but his blood sugars are in 500s I do not have any hemoglobin A1c available at this time. Patient was started on IV insulin. Patient also had mild lactic acidosis. Patient serum creatinine is 1.4 on admission came down to 1.3 patient has chronic history of chronic kidney disease. 12/09/2024 Patient is seen in follow-up today with cardiology following underwent 2D echo and read is pending at this time. Patient currently receiving a breathing treatment and reports continued shortness of breath. Patient is maintaining 98% on 2 L of oxygen. Patient does not normally wear oxygen outpatient. Wean FiO2 as tolerated. Patient also to be evaluated by physical therapy with generalized weakness. Hemoglobin A1c is 7.9 and diabetes is new onset as well. Patient is afebrile and denies chest pain or palpitations. 12/10/2024 Patient is seen in follow-up today and 2D echo was noted to be 15-20% EF. Cardiology following making adjustments to medications and blood pressures have been on the lower side. Patient continues to have some wheezing noted maintained on breathing treatments as well as supplemental oxygen. Encouraged the patient to get up more frequently and sit up in the chair. PT/OT therapy is evaluate the patient recommending rehab and patient is agreeable. Continue monitoring Accu-Cheks ACHS and will adjust accordingly. 12/11/2024 Patient is seen in follow-up today with cardiology following making adjustments to medications and discussing possible cardiac catheterization although recommending evaluation by oncology for recently diagnosed small cell lung carcinoma status post bronchoscopy with biopsy with pulmonary last month. Patient is reporting shortness of breath although no worsening and continues with significant weakness. Case management/social work following as physical therapy evaluated recommending rehab and patient was agreeable. Patient has been accepted at [facility] pending insurance authorization. Patient is currently afebrile with no reported chest pains or palpitations. Continue telemetry monitoring and will discuss further with consultations regarding treatment plan moving forward. 12/12/2024 Evaluated in follow-up on the cardiac floor, he is sitting up in the chair. he is not having any Acute complaints at this time not reporting any discomfort or shortness of breath. Discussed with oncology that they have evaluate this patient his prior admission and patient is already set up with Dr. Brown in the office to establish care. He was initially planned to undergo PET scan outpatient but as patient is currently hospitalized oncology will proceed with staging during this admission and patient be going for a CT abdomen pelvis as well as a brain MRI. At this time oncology is recommending to proceed with any type of cardiac intervention if needed as they are unable to stage this patient without all the appropriate testing completed. Labs today reveal a sodium level of 135, BUN of 26 creatinine 1.33. He remains afebrile he is on room air with oxygen saturations of 97 to 98%. His blood pressure is marginal in the 90s to 80s systolic. 12/13/2024 Patient is seen and evaluated in follow-up with multiple consultations following. Cardiology with no plans of cardiac catheterization at this time recommending maximizing medical management and outpatient follow-up for further intervention. Patient undergoing further imaging including CT abdomen pelvis along with MRI of the brain which is pending at this time per oncology as outpatient PET scan has been canceled for now. Patient denies chest pain or shortness of breath and is currently on room air. Patient continues to receive DuoNeb treatments and will continue. Patient with weakness being evaluated for rehab and has been accepted at [facility] with insurance authorization being obtained. Authorization is good through Monday. 12/14 Patient awake alert, looks comfortable lying in bed He denies any respiratory issue like no chest pain or dyspnea. Yesterday he had CT of the abdomen and pelvis for part of his staging disease for his lung cancer and right upper lung mass, it shows no lymphadenopathy but there is some evidence of pneumomediastinum most likely related to his bronchoscopy. Patient says that he has bronchoscopy about 1 week ago. Also there is evidence of subcarinal lymphadenopathy suspicious for metastatic disease and there is also prostatomegaly which can be followed as an outpatient As part of his further workup patient is going for MRI of the brain today. No other new complaint and he is hemodynamically stable, blood pressure slightly on the low side 86/57 Creatinine 1.2. He is continued on Eliquis 5 mg. Losartan on hold. 12/15 Patient developed a seizure overnight and was started on IV Keppra 1000 milligram twice daily and Ativan as needed EEG is requested MRI of the brain showing extensive metastatic disease throughout the brain. After the seizure he looks lethargic, currently has mild headache and dizziness He does have some gurgly heart sounds a repeat chest x-ray is requested, I reviewed the x-ray by myself showing better infiltrate in the left lower lung zone however official report is pending, currently n.p.o. and speech evaluation is requested He was started also on dexamethasone Daughter was contacted yesterday by staff and she made him DNR December 16: Patient remains delirious. Though bit better in the afternoon. I met with patient's daughter Elizabeth and a cousin at the bedside. Patient not able to lay still for too long. Hence trouble with brain radiation. Elizabeth informed me that patient does not want any chemotherapy. And she wishes to respect that. Also because they live in [place] transport is a big issue. She herself had to get help from a cousin to drive up to the hospital. She is more keen for hospice. I did speak to Dr. Jonas Martínez from oncology and Dr. Huseyin Gan from radiation. Patient has poor functional status. Plan at this point is to see if patient has significant improvement by tomorrow morning he may still get some radiation treatment. Otherwise plan for hospice at home. She would like to use [facility] hospice. Consultation for informational visit is being done. Total time spent today about 1 hour with over 45 minutes of discussion. December 17: Patient remains tired. Eating about 50 to 75%.40s I received a communication with Dr. Huseyin Gan from radiation. Not a candidate sh for radiation because of his mental status and poor activity tolerance . Plan was for patient to go home with hospice. Hospice team called out to me that did not have legal paperwork as she will have to wait for the court to to jeannie guardianship.. [place] has been added for pain. And scopolamine patch for nausea. December 18: Patient on [place] 5 for pain. Daughter at the bedside. Eating with assistance. Occasionally confused. Court hearing on Monday for guardianship. Will change to p.o. Decadron Active Medications Acetaminophen (Acetaminophen Tab 325 Mg Tab) 650 mg PO Q6HR PRN PRN Reason: Pain Last Admin: 12/17/24 15:29 Dose: 650 mg Hydrocodone Bitart/Acetaminophen (Hydrocodone/Apap 5-325mg 1 Each Tab) 1 each PO Q6HR PRN PRN Reason: Pain Last Admin: 12/18/24 14:30 Dose: 1 each Albuterol/Ipratropium (Ipratropium-Albuterol 3 Ml Neb) 3 ml INHALATION RT-TID PRN PRN Reason: Shortness Of Breath Or Wheezing Last Admin: 12/08/24 03:54 Dose: 3 ml Albuterol/Ipratropium (Ipratropium-Albuterol 3 Ml Neb) 3 ml INHALATION RT-TID [facility] Last Admin: 12/18/24 16:10 Dose: 3 ml Budesonide/Formoterol Fumarate (Symbicort 160-4.5 Mcg Inhaler) 2 puff INHALATION RT-BID [facility] Last Admin: 12/18/24 09:08 Dose: 2 puff Dapagliflozin (Dapagliflozin Propanediol 10 Mg Tablet) 10 mg PO DAILY [facility] Last Admin: 12/18/24 09:13 Dose: 10 mg Dexamethasone (Dexamethasone 4 Mg Tab) 4 mg PO TID [facility] Dextrose/Water (Dextrose 50% Syringe 50 Ml) 25 ml IVP PER PROTOCOL PRN; Protocol PRN Reason: Hypoglycemia Dextrose/Water (Dextrose 50% Syringe 50 Ml) 50 ml IVP PER PROTOCOL PRN; Protocol PRN Reason: Hypoglycemia Fluoxetine HCl (Fluoxetine Hcl 10 Mg Cap) 10 mg PO TID [facility] Last Admin: 12/18/24 14:30 Dose: 10 mg Gabapentin (Gabapentin 100 Mg Cap) 100 mg PO TID [facility] Last Admin: 12/18/24 14:30 Dose: 100 mg Guaifenesin (Guaifenesin 600 Mg Tablet.Er) 600 mg PO Q12HR PRN PRN Reason: Congestion Insulin Glargine (Insulin Glargine (Lantus) 100 Unit/Ml Syr) 28 unit SQ DAILY@0700 [facility] Last Admin: 12/18/24 06:55 Dose: 28 unit Insulin Human Lispro (Insulin Lispro (Humalog) 100 Unit/Ml 10 Ml Vl) 0 unit SQ [facility]; Protocol Last Admin: 12/18/24 17:44 Dose: Not Given Levetiracetam (Levetiracetam Iv 500 Mg/5 Ml Vial) 1,000 mg IVP Q12HR [facility] Last Admin: 12/18/24 09:12 Dose: 1,000 mg Lorazepam (Lorazepam 1 Mg/0.5 Ml Vial) 1 mg IV Q4HR PRN PRN Reason: Seizures Last Admin: 12/17/24 15:42 Dose: 1 mg Losartan Potassium (Losartan 25 Mg Tab) 25 mg PO DAILY [facility] Last Admin: 12/18/24 09:13 Dose: 25 mg Metoprolol Succinate (Metoprolol Succinate (Er) 25 Mg Tab.Er.24h) 25 mg PO DAILY [facility] Last Admin: 12/18/24 09:13 Dose: 25 mg Naloxone HCl (Naloxone 0.4 Mg/Ml 1 Ml Vial) 0.2 mg IV Q2M PRN PRN Reason: Opioid Reversal Olanzapine (Olanzapine 10 Mg Vial) 2.5 mg IM TID PRN PRN Reason: Agitation Last Admin: 12/15/24 00:13 Dose: 2.5 mg Ondansetron HCl (Ondansetron 4 Mg/2 Ml Vial) 4 mg IVP Q8HR PRN PRN Reason: Nausea And Vomiting Last Admin: 12/17/24 15:42 Dose: 4 mg Pantoprazole Sodium (Pantoprazole 40 Mg Tablet) 40 mg PO AC-BRKFST [facility] Last Admin: 12/18/24 06:21 Dose: 40 mg Quetiapine Fumarate (Quetiapine 25 Mg Tab) 25 mg PO BID [facility] Last Admin: 12/18/24 09:12 Dose: 25 mg Spironolactone (Spironolactone 25 Mg Tab) 12.5 mg PO DAILY [facility] Last Admin: 12/18/24 09:12 Dose: 12.5 mg Physical examination: VITAL SIGNS: 97.9, 68, 18, 99 x 62, 96% room air GENERAL: Reclining bed, being fed lunch by daughter EYES: Pupils equal. Conjunctiva poonam l. HEENT: External appearance of nose and ears normal, oral cavity grossly normal. NECK: JVD not raised; masses not palpable. HEART: First and second heart sounds are normal; no edema. LUNGS: Respiratory rate increased, diminished basilar breath sounds, some wheezing ABDOMEN: Soft, but distended, soft nontender, liver spleen not palpable, no masses palpable. PSYCH: Will answer some questions. Mentation fluctuating. MUSCULOSKELETAL:No Clubbing/cyanosis;muscles-grossly intact INVESTIGATIONS, reviewed in the clinical context: EEG [December 16, 2024] suggestive of encephalopathy. No epileptiform activity. December 14: White count 7 hemoglobin 12.2 platelets 393 sodium 131 potassium 4.5 creatinine 1.25 Brain MRI: Marked metastatic disease throughout the brain. No midline shift. Modified barium swallow: Deep transient penetration noted. CT abdomen pelvis: Prostatomegaly. Moderate coronary artery and aortic valve calcification. Subcarinal lymph node. 2D echo: EF 50 to 20%. Cannot exclude apical thrombus.Mild to moderate MR. Assessment plan: -Acute metabolic encephalopathy from brain metastasis: Slow improvement Decadron 4 mg IV every 6 -Cardiomyopathy, EF 15 to 20%, ischemic versus nonischemic, Given patient's poor functional status. And overall guarded prognosis. Cardiac catheterization this point not of any value -Extensive metastatic brain disease, with seizure activity. On Keppra and dexamethasone and Ativan as needed -New onset diabetes mellitus, type II, uncontrolled with hyperglycemia, hemoglobin A1c 7.9, and will continue with sliding scale and long-acting and adjust accordingly. -Acute renal failure: Probably due to intravascular depletion, improving patient is also on losartan with decreased blood pressures this could be attributing to his creatinine and would recommend to hold the losartan we will leave this up to cardiology at this time. -Hyponatremia hypoosmolar hyponatremia -Right upper lobe mass status post recent bronchoscopy with recent diagnosis of small cell lung carcinoma, with brain metastasis. Patient seen by Dr. Jonas Martínez. Daughter informed. Patient does not want chemotherapy and she wishes to respect patient's wishes. Patient not a candidate for radiation because of poor functional status and not delirium/altered mentation. -COPD history, presently not in acute exacerbation DuoNeb -Generalized weakness with gait dysfunction, patient evaluated by physical therapy recommending rehab and patient is agreeable. Patient will be going to rehab on discharge. Patient will be going to [facility] and has received insurance authorization awaiting finalized testing per oncology before discharge -DNR Advance care planning [December 16, 2024 This was discussed with patient daughter at the bedside. Daughter's cousin also present at the bedside. Patient lives in [place] with his daughter. Daughter does not have any transport. It was discussed that patient needs to remain still for any rate brain radiation. Currently not possible. As patient still a bit delirious. Also patient does not want any chemotherapy as expressed per her daughter. She is taking care of 2 other family members at home with hospice and keen for that. Shown interest to use [facility] hospice. Informational visit will be done. Daughter is not does not have the legal paperwork. Hearing for guardianship of the court this Monday.
[2024-12-18 20:43] LABS: Glucose,Whole Blood 374 mg/dL (70-110)
[2024-12-18] MEDS: dexAMETHasone 4 MG TAB PO SCH (20:53)
[2024-12-19 06:20] LABS: Glucose,Whole Blood 235 mg/dL (70-110)
[2024-12-19 11:45] LABS: Glucose,Whole Blood 114 mg/dL (70-110)
[2024-12-19] MEDS: MORPHINE SULFATE 4 MG/ML SYRINGE IVP PRN (16:30)
[2024-12-19 16:40] LABS: Glucose,Whole Blood 200 mg/dL (70-110)
[2024-12-19 20:38] LABS: Glucose,Whole Blood 138 mg/dL (70-110)
--- NOTE | 2024-12-19 20:43 | P.PN ---
Progress Note - Text Progress Note Date: 12/19/24 79-year-old male came in after a fall patient denied any shortness of breath at this time. Patient is found to be in atrial fibrillation with rapid unclear rate this is new onset A-fib patient is presently sinus rhythm rate controlled. Patient was eval by cardiology was started on Anticoagulation and rate control medications. Patient has elevated proBNP with chest x-ray did not show any congestive heart failure patient has been n.p.o. 6000 although patient appears to be volume depleted clinically patient is hypotensive and hyponatremic. Patient does not have any elevated JVD or pedal edema. Patient fall is not secondary to syncope but he slipped and fell. Patient was recently hospitalized and found to have a mass in the right upper lobe patient quit smoking does not have any history of COPD as per the patient does not use any oxygen at home. Patient is saturating 100% on 2 L. Patient is supposed to follow-up with Dr. Quarles as an outpatient but did not make an appointment yet, patient is supposed to follow-up with oncology as well as an outpatient. Is not a known diabetic but his blood sugars are in 500s I do not have any hemoglobin A1c available at this time. Patient was started on IV insulin. Patient also had mild lactic acidosis. Patient serum creatinine is 1.4 on admission came down to 1.3 patient has chronic history of chronic kidney disease. 12/09/2024 Patient is seen in follow-up today with cardiology following underwent 2D echo and read is pending at this time. Patient currently receiving a breathing treatment and reports continued shortness of breath. Patient is maintaining 98% on 2 L of oxygen. Patient does not normally wear oxygen outpatient. Wean FiO2 as tolerated. Patient also to be evaluated by physical therapy with generalized weakness. Hemoglobin A1c is 7.9 and diabetes is new onset as well. Patient is afebrile and denies chest pain or palpitations. 12/10/2024 Patient is seen in follow-up today and 2D echo was noted to be 15-20% EF. Cardiology following making adjustments to medications and blood pressures have been on the lower side. Patient continues to have some wheezing noted maintained on breathing treatments as well as supplemental oxygen. Encouraged the patient to get up more frequently and sit up in the chair. PT/OT therapy is evaluate the patient recommending rehab and patient is agreeable. Continue monitoring Accu-Cheks ACHS and will adjust accordingly. 12/11/2024 Patient is seen in follow-up today with cardiology following making adjustments to medications and discussing possible cardiac catheterization although recommending evaluation by oncology for recently diagnosed small cell lung carcinoma status post bronchoscopy with biopsy with pulmonary last month. Patient is reporting shortness of breath although no worsening and continues with significant weakness. Case management/social work following as physical therapy evaluated recommending rehab and patient was agreeable. Patient has been accepted at [facility] pending insurance authorization. Patient is currently afebrile with no reported chest pains or palpitations. Continue telemetry monitoring and will discuss further with consultations regarding treatment plan moving forward. 12/12/2024 Evaluated in follow-up on the cardiac floor, he is sitting up in the chair. he is not having any Acute complaints at this time not reporting any discomfort or shortness of breath. Discussed with oncology that they have evaluate this patient his prior admission and patient is already set up with Dr. Brown in the office to establish care. He was initially planned to undergo PET scan outpatient but as patient is currently hospitalized oncology will proceed with staging during this admission and patient be going for a CT abdomen pelvis as well as a brain MRI. At this time oncology is recommending to proceed with any type of cardiac intervention if needed as they are unable to stage this patient without all the appropriate testing completed. Labs today reveal a sodium level of 135, BUN of 26 creatinine 1.33. He remains afebrile he is on room air with oxygen saturations of 97 to 98%. His blood pressure is marginal in the 90s to 80s systolic. 12/13/2024 Patient is seen and evaluated in follow-up with multiple consultations following. Cardiology with no plans of cardiac catheterization at this time recommending maximizing medical management and outpatient follow-up for further intervention. Patient undergoing further imaging including CT abdomen pelvis along with MRI of the brain which is pending at this time per oncology as outpatient PET scan has been canceled for now. Patient denies chest pain or shortness of breath and is currently on room air. Patient continues to receive DuoNeb treatments and will continue. Patient with weakness being evaluated for rehab and has been accepted at [facility] with insurance authorization being obtained. Authorization is good through Monday. 12/14 Patient awake alert, looks comfortable lying in bed He denies any respiratory issue like no chest pain or dyspnea. Yesterday he had CT of the abdomen and pelvis for part of his staging disease for his lung cancer and right upper lung mass, it shows no lymphadenopathy but there is some evidence of pneumomediastinum most likely related to his bronchoscopy. Patient says that he has bronchoscopy about 1 week ago. Also there is evidence of subcarinal lymphadenopathy suspicious for metastatic disease and there is also prostatomegaly which can be followed as an outpatient As part of his further workup patient is going for MRI of the brain today. No other new complaint and he is hemodynamically stable, blood pressure slightly on the low side 86/57 Creatinine 1.2. He is continued on Eliquis 5 mg. Losartan on hold. 12/15 Patient developed a seizure overnight and was started on IV Keppra 1000 milligram twice daily and Ativan as needed EEG is requested MRI of the brain showing extensive metastatic disease throughout the brain. After the seizure he looks lethargic, currently has mild headache and dizziness He does have some gurgly heart sounds a repeat chest x-ray is requested, I reviewed the x-ray by myself showing better infiltrate in the left lower lung zone however official report is pending, currently n.p.o. and speech evaluation is requested He was started also on dexamethasone Daughter was contacted yesterday by staff and she made him DNR December 16: Patient remains delirious. Though bit better in the afternoon. I met with patient's daughter Elizabeth and a cousin at the bedside. Patient not able to lay still for too long. Hence trouble with brain radiation. Elizabeth informed me that patient does not want any chemotherapy. And she wishes to respect that. Also because they live in [place] transport is a big issue. She herself had to get help from a cousin to drive up to the hospital. She is more keen for hospice. I did speak to Dr. Jonas Martínez from oncology and Dr. Huseyin Gan from radiation. Patient has poor functional status. Plan at this point is to see if patient has significant improvement by tomorrow morning he may still get some radiation treatment. Otherwise plan for hospice at home. She would like to use [facility] hospice. Consultation for informational visit is being done. Total time spent today about 1 hour with over 45 minutes of discussion. December 17: Patient remains tired. Eating about 50 to 75%.40s I received a communication with Dr. Huseyin Gan from radiation. Not a candidate sh for radiation because of his mental status and poor activity tolerance . Plan was for patient to go home with hospice. Hospice team called out to me that did not have legal paperwork as she will have to wait for the court to to jeannie guardianship.. Brisbin has been added for pain. And scopolamine patch for nausea. December 18: Patient on Brisbin 5 for pain. Daughter at the bedside. Eating with assistance. Occasionally confused. Court hearing on Monday for guardianship. Will change to p.o. Decadron December 19: Daughter at the bedside. Court hearing tomorrow for guardianship. Some shortness of breath. Otherwise tolerating diet. Not in distress. Getting Brisbin 5 for pain. Active Medications Acetaminophen (Acetaminophen Tab 325 Mg Tab) 650 mg PO Q6HR PRN PRN Reason: Pain Last Admin: 12/17/24 15:29 Dose: 650 mg Hydrocodone Bitart/Acetaminophen (Hydrocodone/Apap 5-325mg 1 Each Tab) 1 each PO Q6HR PRN PRN Reason: Pain Last Admin: 12/19/24 10:44 Dose: 1 each Albuterol/Ipratropium (Ipratropium-Albuterol 3 Ml Neb) 3 ml INHALATION RT-TID PRN PRN Reason: Shortness Of Breath Or Wheezing Last Admin: 12/08/24 03:54 Dose: 3 ml Albuterol/Ipratropium (Ipratropium-Albuterol 3 Ml Neb) 3 ml INHALATION RT-TID [facility] Last Admin: 12/19/24 19:56 Dose: 3 ml Budesonide/Formoterol Fumarate (Symbicort 160-4.5 Mcg Inhaler) 2 puff INHALATION RT-BID [facility] Last Admin: 12/19/24 19:56 Dose: 2 puff Dapagliflozin (Dapagliflozin Propanediol 10 Mg Tablet) 10 mg PO DAILY [facility] Last Admin: 12/19/24 09:50 Dose: 10 mg Dexamethasone (Dexamethasone 4 Mg Tab) 4 mg PO TID [facility] Last Admin: 12/19/24 16:30 Dose: 4 mg Dextrose/Water (Dextrose 50% Syringe 50 Ml) 25 ml IVP PER PROTOCOL PRN; Protoco l PRN Reason: Hypoglycemia Dextrose/Water (Dextrose 50% Syringe 50 Ml) 50 ml IVP PER PROTOCOL PRN; Protocol PRN Reason: Hypoglycemia Fluoxetine HCl (Fluoxetine Hcl 10 Mg Cap) 10 mg PO TID [facility] Last Admin: 12/19/24 16:30 Dose: 10 mg Gabapentin (Gabapentin 100 Mg Cap) 100 mg PO TID [facility] Last Admin: 12/19/24 16:30 Dose: 100 mg Guaifenesin (Guaifenesin 600 Mg Tablet.Er) 600 mg PO Q12HR PRN PRN Reason: Congestion Insulin Glargine (Insulin Glargine (Lantus) 100 Unit/Ml Syr) 28 unit SQ DAILY@0700 [facility] Last Admin: 12/19/24 09:51 Dose: 28 unit Insulin Human Lispro (Insulin Lispro (Humalog) 100 Unit/Ml 10 Ml Vl) 0 unit SQ ACHS [facility]; Protocol Last Admin: 12/19/24 17:28 Dose: 1 unit Levetiracetam (Levetiracetam Iv 500 Mg/5 Ml Vial) 1,000 mg IVP Q12HR [facility] Last Admin: 12/19/24 09:51 Dose: 1,000 mg Lorazepam (Lorazepam 1 Mg/0.5 Ml Vial) 1 mg IV Q4HR PRN PRN Reason: Seizures Last Admin: 12/17/24 15:42 Dose: 1 mg Losartan Potassium (Losartan 25 Mg Tab) 25 mg PO DAILY [facility] Last Admin: 12/19/24 09:49 Dose: 25 mg Metoprolol Succinate (Metoprolol Succinate (Er) 25 Mg Tab.Er.24h) 25 mg PO DAILY [facility] Last Admin: 12/19/24 09:49 Dose: 25 mg Morphine Sulfate (Morphine Sulfate 4 Mg/Ml Syringe) 4 mg IVP Q6HR PRN PRN Reason: Pain Last Admin: 12/19/24 16:30 Dose: 4 mg Naloxone HCl (Naloxone 0.4 Mg/Ml 1 Ml Vial) 0.2 mg IV Q2M PRN PRN Reason: Opioid Reversal Olanzapine (Olanzapine 10 Mg Vial) 2.5 mg IM TID PRN PRN Reason: Agitation Last Admin: 12/15/24 00:13 Dose: 2.5 mg Ondansetron HCl (Ondansetron 4 Mg/2 Ml Vial) 4 mg IVP Q8HR PRN PRN Reason: Nausea And Vomiting Last Admin: 12/17/24 15:42 Dose: 4 mg Pantoprazole Sodium (Pantoprazole 40 Mg Tablet) 40 mg PO AC-BRKFST [facility] Last Admin: 12/19/24 06:46 Dose: 40 mg Quetiapine Fumarate (Quetiapine 25 Mg Tab) 25 mg PO BID [facility] Last Admin: 12/19/24 09:50 Dose: 25 mg Spironolactone (Spironolactone 25 Mg Tab) 12.5 mg PO DAILY [facility] Last Admin: 12/19/24 09:50 Dose: 12.5 mg Physical examination: VITAL SIGNS: 97.4, 77, 16, 108 x 62, 95% room air GENERAL: In bed EYES: Pupils equal. Conjunctiva poonam l. HEENT: External appearance of nose and ears normal, oral cavity grossly normal. NECK: JVD not raised; masses not palpable. HEART: First and second heart sounds are normal; no edema. LUNGS: Respiratory rate increased, diminished basilar breath sounds, intermittent wheezing ABDOMEN: Soft, but distended, soft nontender, liver spleen not palpable, no masses palpable. PSYCH: Will answer some questions. Mentation fluctuating. MUSCULOSKELETAL:No Clubbing/cyanosis;muscles-grossly intact INVESTIGATIONS, reviewed in the clinical context: EEG [December 16, 2024] suggestive of encephalopathy. No epileptiform activity. December 14: White count 7 hemoglobin 12.2 platelets 393 sodium 131 potassium 4.5 creatinine 1.25 Brain MRI: Marked metastatic disease throughout the brain. No midline shift. Modified barium swallow: Deep transient penetration noted. CT abdomen pelvis: Prostatomegaly. Moderate coronary artery and aortic valve calcification. Subcarinal lymph node. 2D echo: EF 50 to 20%. Cannot exclude apical thrombus.Mild to moderate MR. Assessment plan: -Acute metabolic encephalopathy from brain metastasis: Slow improvement Decadron 4 mg IV every 6 -Cardiomyopathy, EF 15 to 20%, ischemic versus nonischemic, Given patient's poor functional status. And overall guarded prognosis. Cardiac catheterization this point not of any value -Extensive metastatic brain disease, with seizure activity. On Keppra and dexamethasone and Ativan as needed -New onset diabetes mellitus, type II, uncontrolled with hyperglycemia, hemoglobin A1c 7.9, and will continue with sliding scale and long-acting and adjust accordingly. -Acute renal failure: Probably due to intravascular depletion, improving patient is also on losartan with decreased blood pressures this could be attributing to his creatinine and would recommend to hold the losartan we will leave this up to cardiology at this time. -Hyponatremia hypoosmolar hyponatremia -Right upper lobe mass status post recent bronchoscopy with recent diagnosis of small cell lung carcinoma, with brain metastasis. Patient seen by Dr. Jonas Martínez. Daughter informed. Patient does not want chemotherapy and she wishes to respect patient's wishes. Patient not a candidate for radiation because of poor functional status and not delirium/altered mentation. -COPD history, presently not in acute exacerbation DuoNeb -Generalized weakness with gait dysfunction, patient evaluated by physical therapy recommending rehab and patient is agreeable. Patient will be going to rehab on discharge. Patient will be going to [facility] [place] and has received insurance authorization awaiting finalized testing per oncology before discharge -DNR Advance care planning [December 16, 2024 This was discussed with patient daughter at the bedside. Daughter's cousin also present at the bedside. Patient lives in [place] with his daughter. Daughter does not have any transport. It was discussed that patient needs to remain still for any rate brain radiation. Currently not possible. As patient still a bit delirious. Also patient does not want any chemotherapy as expressed per her daughter. She is taking care of 2 other family members at home with hospice and keen for that. Shown interest to use [facility] hospice. Informational visit will be done. Court hearing for guardianship tomorrow. Plan to discharge home with hospice after that.
[2024-12-19] MEDS: SCOPOLAMINE 1 MG/72 HR PATCH TRANSDERM SCH (23:32)
[2024-12-20 06:27] LABS: Glucose,Whole Blood 188 mg/dL (70-110)
[2024-12-20 11:23] LABS: Glucose,Whole Blood 195 mg/dL (70-110)
[2024-12-20] MEDS: guaiFENesin 600 MG TABLET.ER PO PRN (14:51)
[2024-12-20 16:43] LABS: Glucose,Whole Blood 189 mg/dL (70-110)
--- NOTE | 2024-12-20 17:45 | P.PN ---
Progress Note - Text Progress Note Date: 12/20/24 79-year-old male came in after a fall patient denied any shortness of breath at this time. Patient is found to be in atrial fibrillation with rapid unclear rate this is new onset A-fib patient is presently sinus rhythm rate controlled. Patient was eval by cardiology was started on Anticoagulation and rate control medications. Patient has elevated proBNP with chest x-ray did not show any congestive heart failure patient has been n.p.o. 6000 although patient appears to be volume depleted clinically patient is hypotensive and hyponatremic. Patient does not have any elevated JVD or pedal edema. Patient fall is not secondary to syncope but he slipped and fell. Patient was recently hospitalized and found to have a mass in the right upper lobe patient quit smoking does not have any history of COPD as per the patient does not use any oxygen at home. Patient is saturating 100% on 2 L. Patient is supposed to follow-up with Dr. Quarles as an outpatient but did not make an appointment yet, patient is supposed to follow-up with oncology as well as an outpatient. Is not a known diabetic but his blood sugars are in 500s I do not have any hemoglobin A1c available at this time. Patient was started on IV insulin. Patient also had mild lactic acidosis. Patient serum creatinine is 1.4 on admission came down to 1.3 patient has chronic history of chronic kidney disease. 12/09/2024 Patient is seen in follow-up today with cardiology following underwent 2D echo and read is pending at this time. Patient currently receiving a breathing treatment and reports continued shortness of breath. Patient is maintaining 98% on 2 L of oxygen. Patient does not normally wear oxygen outpatient. Wean FiO2 as tolerated. Patient also to be evaluated by physical therapy with generalized weakness. Hemoglobin A1c is 7.9 and diabetes is new onset as well. Patient is afebrile and denies chest pain or palpitations. 12/10/2024 Patient is seen in follow-up today and 2D echo was noted to be 15-20% EF. Cardiology following making adjustments to medications and blood pressures have been on the lower side. Patient continues to have some wheezing noted maintained on breathing treatments as well as supplemental oxygen. Encouraged the patient to get up more frequently and sit up in the chair. PT/OT therapy is evaluate the patient recommending rehab and patient is agreeable. Continue monitoring Accu-Cheks ACHS and will adjust accordingly. 12/11/2024 Patient is seen in follow-up today with cardiology following making adjustments to medications and discussing possible cardiac catheterization although recommending evaluation by oncology for recently diagnosed small cell lung carcinoma status post bronchoscopy with biopsy with pulmonary last month. Patient is reporting shortness of breath although no worsening and continues with significant weakness. Case management/social work following as physical therapy evaluated recommending rehab and patient was agreeable. Patient has been accepted at [facility] pending insurance authorization. Patient is currently afebrile with no reported chest pains or palpitations. Continue telemetry monitoring and will discuss further with consultations regarding treatment plan moving forward. 12/12/2024 Evaluated in follow-up on the cardiac floor, he is sitting up in the chair. he is not having any Acute complaints at this time not reporting any discomfort or shortness of breath. Discussed with oncology that they have evaluate this patient his prior admission and patient is already set up with Dr. Brown in the office to establish care. He was initially planned to undergo PET scan outpatient but as patient is currently hospitalized oncology will proceed with staging during this admission and patient be going for a CT abdomen pelvis as well as a brain MRI. At this time oncology is recommending to proceed with any type of cardiac intervention if needed as they are unable to stage this patient without all the appropriate testing completed. Labs today reveal a sodium level of 135, BUN of 26 creatinine 1.33. He remains afebrile he is on room air with oxygen saturations of 97 to 98%. His blood pressure is marginal in the 90s to 80s systolic. 12/13/2024 Patient is seen and evaluated in follow-up with multiple consultations following. Cardiology with no plans of cardiac catheterization at this time recommending maximizing medical management and outpatient follow-up for further intervention. Patient undergoing further imaging including CT abdomen pelvis along with MRI of the brain which is pending at this time per oncology as outpatient PET scan has been canceled for now. Patient denies chest pain or shortness of breath and is currently on room air. Patient continues to receive DuoNeb treatments and will continue. Patient with weakness being evaluated for rehab and has been accepted at [facility] with insurance authorization being obtained. Authorization is good through Monday. 12/14 Patient awake alert, looks comfortable lying in bed He denies any respiratory issue like no chest pain or dyspnea. Yesterday he had CT of the abdomen and pelvis for part of his staging disease for his lung cancer and right upper lung mass, it shows no lymphadenopathy but there is some evidence of pneumomediastinum most likely related to his bronchoscopy. Patient says that he has bronchoscopy about 1 week ago. Also there is evidence of subcarinal lymphadenopathy suspicious for metastatic disease and there is also prostatomegaly which can be followed as an outpatient As part of his further workup patient is going for MRI of the brain today. No other new complaint and he is hemodynamically stable, blood pressure slightly on the low side 86/57 Creatinine 1.2. He is continued on Eliquis 5 mg. Losartan on hold. 12/15 Patient developed a seizure overnight and was started on IV Keppra 1000 milligram twice daily and Ativan as needed EEG is requested MRI of the brain showing extensive metastatic disease throughout the brain. After the seizure he looks lethargic, currently has mild headache and dizziness He does have some gurgly heart sounds a repeat chest x-ray is requested, I reviewed the x-ray by myself showing better infiltrate in the left lower lung zone however official report is pending, currently n.p.o. and speech evaluation is requested He was started also on dexamethasone Daughter was contacted yesterday by staff and she made him DNR December 16: Patient remains delirious. Though bit better in the afternoon. I met with patient's daughter Elizabeth and a cousin at the bedside. Patient not able to lay still for too long. Hence trouble with brain radiation. Elizabeth informed me that patient does not want any chemotherapy. And she wishes to respect that. Also because they live in [place] transport is a big issue. She herself had to get help from a cousin to drive up to the hospital. She is more keen for hospice. I did speak to Dr. Jonas Martínez from oncology and Dr. Huseyin Gan from radiation. Patient has poor functional status. Plan at this point is to see if patient has significant improvement by tomorrow morning he may still get some radiation treatment. Otherwise plan for hospice at home. She would like to use [facility] hospice. Consultation for informational visit is being done. Total time spent today about 1 hour with over 45 minutes of discussion. December 17: Patient remains tired. Eating about 50 to 75%.40s I received a communication with Dr. Huseyin Gan from radiation. Not a candidate sh for radiation because of his mental status and poor activity tolerance . Plan was for patient to go home with hospice. Hospice team called out to me that did not have legal paperwork as she will have to wait for the court to to jeannie guardianship.. Saratoga has been added for pain. And scopolamine patch for nausea. December 18: Patient on [place] 5 for pain. Daughter at the bedside. Eating with assistance. Occasionally confused. Court hearing on Monday for guardianship. Will change to p.o. Decadron December 19: Daughter at the bedside. Court hearing tomorrow for guardianship. Some shortness of breath. Otherwise tolerating diet. Not in distress. Getting [place] 5 for pain. December 20: Saw the patient this morning. Daughter at the bedside. Court hearing this afternoon. Spoke to hospice home health aide at the bedside. Hopefully hospital will be delivered tonight or tomorrow morning. Plan for discharge tomorrow. Sar[place]oga being changed to every 4.. Because of patient's advanced malignancy. Pain being an issue. Will start the patient MS Contin 15 mg every 12. And use [place] as needed for breakthrough pain. Active Medications Acetaminophen (Acetaminophen Tab 325 Mg Tab) 650 mg PO Q6HR PRN PRN Reason: Pain Last Admin: 12/17/24 15:29 Dose: 650 mg Hydrocodone Bitart/Acetaminophen (Hydrocodone/Apap 5-325mg 1 Each Tab) 1 each PO Q4HR PRN PRN Reason: Pain Albuterol/Ipratropium (Ipratropium-Albuterol 3 Ml Neb) 3 ml INHALATION RT-TID PRN PRN Reason: Shortness Of Breath Or Wheezing Last Admin: 12/08/24 03:54 Dose: 3 ml Albuterol/Ipratropium (Ipratropium-Albuterol 3 Ml Neb) 3 ml INHALATION RT-TID [facility] Last Admin: 12/20/24 12:01 Dose: 3 ml Budesonide/Formoterol Fumarate (Symbicort 160-4.5 Mcg Inhaler) 2 puff INHALATION RT-BID [facility] Last Admin: 12/20/24 09:43 Dose: Not Given Dapagliflozin (Dapagliflozin Propanediol 10 Mg Tablet) 10 mg PO DAILY [facility] Last Admin: 12/20/24 08:42 Dose: 10 mg Dexamethasone (Dexamethasone 4 Mg Tab) 4 mg PO TID [facility] Last Admin: 12/20/24 16:16 Dose: 4 mg Dextrose/Water (Dextrose 50% Syringe 50 Ml) 25 ml IVP PER PROTOCOL PRN; Protocol PRN Reason: Hypoglycemia Dextrose/Water (Dextrose 50% Syringe 50 Ml) 50 ml IVP PER PROTOCOL PRN; Protocol PRN Reason: Hypoglycemia Fluoxetine HCl (Fluoxetine Hcl 10 Mg Cap) 10 mg PO TID [facility] Last Admin: 12/20/24 16:16 Dose: 10 mg Gabapentin (Gabapentin 100 Mg Cap) 100 mg PO TID [facility] Last Admin: 12/20/24 16:16 Dose: 100 mg Guaifenesin (Guaifenesin 600 Mg Tablet.Er) 600 mg PO Q12HR PRN PRN Reason: Congestion Last Admin: 12/20/24 14:51 Dose: 600 mg Insulin Glargine (Insulin Glargine (Lantus) 100 Unit/Ml Syr) 28 unit SQ DAILY@0700 [facility] Last Admin: 12/20/24 06:52 Dose: 28 unit Insulin Human Lispro (Insulin Lispro (Humalog) 100 Unit/Ml 10 Ml Vl) 0 unit SQ ACHS [facility]; Protocol Last Admin: 12/20/24 16:56 Dose: 1 unit Levetiracetam (Levetiracetam Iv 500 Mg/5 Ml Vial) 1,000 mg IVP Q12HR [facility] Last Admin: 12/20/24 08:44 Dose: 1,000 mg Lorazepam (Lorazepam 1 Mg/0.5 Ml Vial) 1 mg IV Q4HR PRN PRN Reason: Seizures Last Admin: 12/17/24 15:42 Dose: 1 mg Losartan Potassium (Losartan 25 Mg Tab) 25 mg PO DAILY [facility] Last Admin: 12/20/24 08:42 Dose: 25 mg Metoprolol Succinate (Metoprolol Succinate (Er) 25 Mg Tab.Er.24h) 25 mg PO DAILY [facility] Last Admin: 12/20/24 08:42 Dose: 25 mg Morphine Sulfate (Morphine Sulfate 4 Mg/Ml Syringe) 4 mg IVP Q6HR PRN PRN Reason: Pain Last Admin: 12/20/24 12:16 Dose: 4 mg Morphine Sulfate (Morphine Sulfate Er 15 Mg Tablet) 15 mg PO Q12HR [facility]; Protocol Naloxone HCl (Naloxone 0.4 Mg/Ml 1 Ml Vial) 0.2 mg IV Q2M PRN PRN Reason: Opioid Reversal Olanzapine (Olanzapine 10 Mg Vial) 2.5 mg IM TID PRN PRN Reason: Agitation Last Admin: 12/15/24 00:13 Dose: 2.5 mg Ondansetron HCl (Ondansetron 4 Mg/2 Ml Vial) 4 mg IVP Q8HR PRN PRN Reason: Nausea And Vomiting Last Admin: 12/17/24 15:42 Dose: 4 mg Pantoprazole Sodium (Pantoprazole 40 Mg Tablet) 40 mg PO AC-BRKFST [facility] Last Admin: 12/20/24 06:51 Dose: 40 mg Quetiapine Fumarate (Quetiapine 25 Mg Tab) 25 mg PO BID [facility] Last Admin: 12/20/24 08:42 Dose: 25 mg Scopolamine (Scopolamine 1 Mg/72 Hr Patch) 1 patch TRANSDERM Q72H [facility] Last Admin: 12/19/24 23:32 Dose: 1 patch Spironolactone (Spironolactone 25 Mg Tab) 12.5 mg PO DAILY [facility] Last Admin: 12/20/24 08:41 Dose: 12.5 mg Physical examination: VITAL SIGNS: 97.9, 79, 20, 106 x 70, 93% room GENERAL: In bed, bit labored breathing EYES: Pupils equal. Conjunctiva poonam l. HEENT: External appearance of nose and ears normal, oral cavity grossly normal. NECK: JVD not raised; masses not palpable. HEART: First and second heart sounds are normal; no edema. LUNGS: Respiratory rate increased, diminished basilar breath sounds, i intermittent crackles ABDOMEN: Soft, but distended, soft nontender, liver spleen not palpable, no masses palpable. PSYCH: Will answer some questions. Mentation fluctuating. MUSCULOSKELETAL:No Clubbing/cyanosis;muscles-grossly intact INVESTIGATIONS, reviewed in the clinical context: EEG [December 16, 2024] suggestive of encephalopathy. No epileptiform activity. December 14: White count 7 hemoglobin 12.2 platelets 393 sodium 131 potassium 4.5 creatinine 1.25 Brain MRI: Marked metastatic disease throughout the brain. No midline shift. Modified barium swallow: Deep transient penetration noted. CT abdomen pelvis: Prostatomegaly. Moderate coronary artery and aortic valve calcification. Subcarinal lymph node. 2D echo: EF 50 to 20%. Cannot exclude apical thrombus.Mild to moderate MR. Assessment plan: -Acute metabolic encephalopathy from brain metastasis: Slow improvement Decadron 4 mg IV every 6. Changed to p.o. -Cardiomyopathy, EF 15 to 20%, ischemic versus nonischemic, Given patient's poor functional status. And overall guarded prognosis. Cardiac catheterization this point not of any value -Extensive metastatic brain disease, with seizure activity. On Keppra and dexamethasone and Ativan as needed -Acute on chronic pain from metastatic lung cancer and arthritis Patient has been on [place]. Still having pain. Start MS Contin 15 every 12. Use [place] as needed. -New onset diabetes mellitus, type II, uncontrolled with hyperglycemia, hemoglobin A1c 7.9, and will continue with sliding scale and long-acting and adjust accordingly. -Acute renal failure: Probably due to intravascular depletion, improving patient is also on losartan with decreased blood pressures this could be attributing to his creatinine and would recommend to hold the losartan we will leave this up to cardiology at this time. -Hyponatremia hypoosmolar hyponatremia -Right upper lobe mass status post recent bronchoscopy with recent diagnosis of small cell lung carcinoma, with brain metastasis. Patient seen by Dr. Jonas Martínez. Daughter informed. Patient does not want chemotherapy and she wishes to respect patient's wishes. Patient not a candidate for radiation because of poor functional status and not delirium/altered mentation. -COPD history, presently not in acute exacerbation DuoNeb -Generalized weakness with gait dysfunction, patient evaluated by physical therapy recommending rehab and patient is agreeable. Patient will be going to rehab on discharge. Patient will be going to [facility] and has received insurance authorization awaiting finalized testing per oncology before discharge -DNR Advance care planning [December 16, 2024 This was discussed with patient daughter at the bedside. Daughter's cousin also present at the bedside. Patient lives in [place] with his daughter. Daughter does not have any transport. It was discussed that patient needs to remain still for any rate brain radiation. Currently not possible. As patient still a bit delirious. Also patient does not want any chemotherapy as expressed per her daughter. She is taking care of 2 other family members at home with hospice and keen for that. Shown interest to use [facility] hospice. Informational visit will be done. Court hearing this afternoon. Start MS Contin for cancer pain. Saratoga as needed. Hopefully home tomorrow. With hospice
--- NOTE | 2024-12-20 18:06 | P.PN ---
Subjective Progress Note Date: 12/20/24 No acute events. Pt A&Ox3, answering questions appropriately at todays visit. Does seem slow to respond to questions. Daughter had guardianship court case today Objective - Vital Signs Vital signs: Vital Signs Temp 98.5 F 12/20/24 08:02 Pulse 88 12/20/24 12:12 Resp 20 12/20/24 08:02 BP 89/52 12/20/24 08:02 Pulse Ox 94 L 12/20/24 08:02 FiO2 21 12/18/24 09:11 Intake & Output 12/19/24 12/20/24 12/20/24 18:59 06:59 18:59 Intake Total 1080 Output Total 400 Balance 1080 -400 Intake: Oral 1080 Output: Urine 400 Other: Voiding Method Diaper Diaper Incontinent # Voids 1 2 1 - Labs CBC & Chem 7: 12/14/24 06:59 12/14/24 06:59 Labs: Abnormal Lab Results - Last 24 Hours (Table) 12/19/24 12/19/24 12/20/24 Range/Units 16:39 20:37 06:25 POC Glucose (mg/dL) 200 H 138 H 188 H (70-110) mg/dL 12/20/24 Range/Units 11:21 POC Glucose (mg/dL) 195 H (70-110) mg/dL Assessment and Plan (1) Small cell carcinoma Current Visit: Yes Status: Acute Priority: High Code(s): C80.1 - MALIGNANT (PRIMARY) NEOPLASM, UNSPECIFIED SNOMED Code(s): 86735819066719659 (2) Acute exacerbation of chronic obstructive pulmonary disease Current Visit: Yes Status: Acute Priority: High Code(s): J44.1 - CHRONIC OBSTRUCTIVE PULMONARY DISEASE W (ACUTE) EXACERBATION SNOMED Code(s): 045613334 (3) Atrial fibrillation with rapid ventricular response Current Visit: Yes Status: Acute Priority: High Code(s): I48.91 - UNSPECIFIED ATRIAL FIBRILLATION SNOMED Code(s): 243096425968569 Plan: Extensive stage small cell carcinoma of the lung: -Oncology history as dictated in the HPI -During previous admit CTA chest showing left lung segmental and subsegmental pulmonary emboli without evidence of right heart strain. Large mediastinal mass measuring 7.9 x 5.3 cm, extending into the right hilum with abrupt cut off of the right upper lobe bronchus and subsequent atelectasis and consolidation of the right upper lobe. Additionally there was mediastinal adenopathy noted. -Pathology was positive for small cell carcinoma -CT abdomen/pelvis revealed no evidence of metastatic disease -Brain MRI noted multiple rim-enhancing lesions with surrounding vasogenic edema concerning for metastasis -Dexamethasone 4 mg IV every 6 hours was initiated on 12/14/2024. He is on oral PPI and insulin sliding scale -We discussed brain MRI findings today as well as the need for radiation therapy to these lesions (likely whole brain radiation therapy) -Consult for radiation oncology has been placed -He was scheduled for outpatient follow-up on 12/18/2024 to further discuss treatment plan, which will include radiation therapy as stated above followed by systemic treatment with carboplatin/etoposide/Tecentriq -Radiation oncology has followed up with pt, recommending possible whole brain RT, once pt acute condition improved. A-fib with RVR: Presented to the emergency room after mechanical fall and reports he was feeling dizzy and short of breath at which time he presented for further evaluation. -Patient was found to be in new onset atrial fibrillation. Cardiology was consulted and echocardiogram revealed EF 15 to 20%. BNP 6220 -From an oncology perspective, I would not advise aggressive cardiac interventions as he has extensive stage small cell lung cancer and continue optimization with medical management *Spoke with daughter who was granted guardianship today. She states patient would not have wanted to undergo aggressive treatments with chemo/RT, and states they have chosen comfort care measures at this time. Hospice consult has been placed. All questions and concerns were addressed Doctor attests: I performed a history and physical examination of this patient, developed impression and plan of care. Discussed with dictator. I agree with dictators note, documented as a scribe.
[2024-12-20 20:57] LABS: Glucose,Whole Blood 415 mg/dL (70-110)
[2024-12-20 22:09] LABS: Glucose,Whole Blood 185 mg/dL (70-110)
[2024-12-20] MEDS: MORPHINE SULFATE ER 15 MG TABLET PO SCH (22:11)
[2024-12-21 06:19] LABS: Glucose,Whole Blood 268 mg/dL (70-110)
[2024-12-21 08:12] VITALS: BP 101/65; TEMP 98.3
[2024-12-21] MEDS: HYDROcodone/APAP 5-325MG 1 EACH TAB PO PRN (09:56)
[2024-12-21 11:15] LABS: Glucose,Whole Blood 250 mg/dL (70-110)
[2024-12-21 13:38] VITALS: RESP 16
[2024-12-21 13:47] VITALS: PULSE 88
[2024-12-21] MEDS ORDERED: ALBUTEROL NEBULIZED 2.5 MG/3 ML INHALATION SCH (16:00)
--- NOTE | 2024-12-21 19:05 | P.DS ---
Providers Date of admission: 12/07/24 19:26 Expected date of discharge: 12/21/24 Attending physician: Parish Alvarez Consults: 12/11/24 12:51 Consult Physician Urgent Consulting Provider: Dima Brown Consult Reason/Comments: lung nodule Do you want consulting provider notified?: Yes 12/14/24 17:48 Consult Physician Routine Consulting Provider: Marshall Quarles Consult Reason/Comments: CHANGE IN LOC; NEWLY DIAGNOSED BRAIN METASASIS Do you want consulting provider notified?: Yes, Notify in am 12/15/24 08:42 Consult Physician Routine Consulting Provider: Jaiden Gan Consult Reason/Comments: SCLC, brain metastases Do you want consulting provider notified?: Yes, Notify in am Primary care physician: Jaiden Billmley [facility] Course: 79-year-old male came in after a fall patient denied any shortness of breath at this time. Patient is found to be in atrial fibrillation with rapid unclear rate this is new onset A-fib patient is presently sinus rhythm rate controlled. Patient was eval by cardiology was started on Anticoagulation and rate control medications. Patient has elevated proBNP with chest x-ray did not show any congestive heart failure patient has been n.p.o. 6000 although patient appears to be volume depleted clinically patient is hypotensive and hyponatremic. Patient does not have any elevated JVD or pedal edema. Patient fall is not secondary to syncope but he slipped and fell. Patient was recently hospitalized and found to have a mass in the right upper lobe patient quit smoking does not have any history of COPD as per the patient does not use any oxygen at home. Patient is saturating 100% on 2 L. Patient is supposed to follow-up with Dr. Quarles as an outpatient but did not make an appointment yet, patient is supposed to follow-up with oncology as well as an outpatient. Is not a known diabetic but his blood sugars are in 500s I do not have any hemoglobin A1c available at this time. Patient was started on IV insulin. Patient also had mild lactic acidosis. Patient serum creatinine is 1.4 on admission came down to 1.3 patient has chronic history of chronic kidney disease. 12/09/2024 Patient is seen in follow-up today with cardiology following underwent 2D echo and read is pending at this time. Patient currently receiving a breathing treatment and reports continued shortness of breath. Patient is maintaining 98% on 2 L of oxygen. Patient does not normally wear oxygen outpatient. Wean FiO2 as tolerated. Patient also to be evaluated by physical therapy with generalized weakness. Hemoglobin A1c is 7.9 and diabetes is new onset as well. Patient is afebrile and denies chest pain or palpitations. 12/10/2024 Patient is seen in follow-up today and 2D echo was noted to be 15-20% EF. Cardiology following making adjustments to medications and blood pressures have been on the lower side. Patient continues to have some wheezing noted maintained on breathing treatments as well as supplemental oxygen. Encouraged the patient to get up more frequently and sit up in the chair. PT/OT therapy is evaluate the patient recommending rehab and patient is agreeable. Continue monitoring Accu-Cheks ACHS and will adjust accordingly. 12/11/2024 Patient is seen in follow-up today with cardiology following making adjustments to medications and discussing possible cardiac catheterization although recommending evaluation by oncology for recently diagnosed small cell lung carcinoma status post bronchoscopy with biopsy with pulmonary last month. Patient is reporting shortness of breath although no worsening and continues wi th significant weakness. Case management/social work following as physical therapy evaluated recommending rehab and patient was agreeable. Patient has been accepted at [facility] pending insurance authorization. Patient is currently afebrile with no reported chest pains or palpitations. Continue telemetry monitoring and will discuss further with consultations regarding treatment plan moving forward. 12/12/2024 Evaluated in follow-up on the cardiac floor, he is sitting up in the chair. he is not having any Acute complaints at this time not reporting any discomfort or shortness of breath. Discussed with oncology that they have evaluate this patient his prior admission and patient is already set up with Dr. Brown in the office to establish care. He was initially planned to undergo PET scan outpatient but as patient is currently hospitalized oncology will proceed with staging during this admission and patient be going for a CT abdomen pelvis as well as a brain MRI. At this time oncology is recommending to proceed with any type of cardiac intervention if needed as they are unable to stage this patient without all the appropriate testing completed. Labs today reveal a sodium level of 135, BUN of 26 creatinine 1.33. He remains afebrile he is on room air with oxygen saturations of 97 to 98%. His blood pressure is marginal in the 90s to 80s systolic. 12/13/2024 Patient is seen and evaluated in follow-up with multiple consultations following. Cardiology with no plans of cardiac catheterization at this time recommending maximizing medical management and outpatient follow-up for further intervention. Patient undergoing further imaging including CT abdomen pelvis along with MRI of the brain which is pending at this time per oncology as outpatient PET scan has been canceled for now. Patient denies chest pain or shortness of breath and is currently on room air. Patient continues to receive DuoNeb treatments and will continue. Patient with weakness being evaluated for rehab and has been accepted at [facility] with insurance authorization being obtained. Authorization is good through Monday. 12/14 Patient awake alert, looks comfortable lying in bed He denies any respiratory issue like no chest pain or dyspnea. Yesterday he had CT of the abdomen and pelvis for part of his staging disease for his lung cancer and right upper lung mass, it shows no lymphadenopathy but there is some evidence of pneumomediastinum most likely related to his bronchoscopy. Patient says that he has bronchoscopy about 1 week ago. Also there is evidence of subcarinal lymphadenopathy suspicious for metastatic disease and there is also prostatomegaly which can be followed as an outpatient As part of his further workup patient is going for MRI of the brain today. No other new complaint and he is hemodynamically stable, blood pressure slightly on the low side 86/57 Creatinine 1.2. He is continued on Eliquis 5 mg. Losartan on hold. 12/15 Patient developed a seizure overnight and was started on IV Keppra 1000 milligram twice daily and Ativan as needed EEG is requested MRI of the brain showing extensive metastatic disease throughout the brain. After the seizure he looks lethargic, currently has mild headache and dizziness He does have some gurgly heart sounds a repeat chest x-ray is requested, I reviewed the x-ray by myself showing better infiltrate in the left lower lung zone however official report is pending, currently n.p.o. and speech evaluation is requested He was started also on dexamethasone Daughter was contacted yesterday by staff and she made him DNR December 16: Patient remains delirious. Though bit better in the afternoon. I met with patient's daughter Elizabeth and a cousin at the bedside. Patient not able to lay still for too long. Hence trouble with brain radiation. Elizabeth informed me that patient does not want any chemotherapy. And she wishes to respect that. Also because they live in [place] transport is a big issue. She herself had to get help from a cousin to drive up to the hospital. She is more keen for hospice. I did speak to Dr. Jonas Martínez from oncology and Dr. Huseyin Gan from radiation. Patient has poor functional status. Plan at this point is to see if patient has significant improvement by tomorrow morning he may still get some radiation treatment. Otherwise plan for hospice at home. She would like to use [facility] hospice. Consultation for informational visit is being done. Total time spent today about 1 hour with over 45 minutes of discussion. December 17: Patient remains tired. Eating about 50 to 75%.40s I received a communication with Dr. Huseyin Gan from radiation. Not a candidate sh for radiation because of his mental status and poor activity tolerance . Plan was for patient to go home with hospice. Hospice team called out to me that did not have legal paperwork as she will have to wait for the court to to jeannie guardianship.. Mooreton has been added for pain. And scopolamine patch for nausea. December 18: Patient on Moore[place] 5 for pain. Daughter at the bedside. Eating with assistance. Occasionally confused. Court hearing on Monday for guardianship. Will change to p.o. Decadron December 19: Daughter at the bedside. Court hearing tomorrow for guardianship. Some shortness of breath. Otherwise tolerating diet. Not in distress. Getting Mooreton 5 for pain. December 20: Saw the patient this morning. Daughter at the bedside. Court hearing this afternoon. Spoke to police liaison at the bedside. Hopefully hospital will be delivered tonight or tomorrow morning. Plan for discharge tomorrow. Mooreton being changed to every 4.. Because of patient's advanced malignancy. Pain being an issue. Will start the patient MS Contin 15 mg every 12. And use Mooreton as needed for breakthrough pain. December 21: Resting bed. A bit congested chest. Pain controlled. Being discharged home with hospice.-[facility] Physical examination: VITAL SIGNS: 98.3, 85, 16, 101/65, 93% room air GENERAL: Resting bed, a bit congested cough EYES: Pupils equal. Conjunctiva poonam l. HEENT: External appearance of nose and ears normal, oral cavity grossly normal. NECK: JVD not raised; masses not palpable. HEART: First and second heart sounds are normal; no edema. LUNGS: Respiratory rate increased, diminished basilar breath sounds, i intermittent crackles ABDOMEN: Soft, but distended, soft nontender, liver spleen not palpable, no masses palpable. PSYCH: Will answer some questions. Mentation fluctuating. MUSCULOSKELETAL:No Clubbing/cyanosis;muscles-grossly intact INVESTIGATIONS, reviewed in the clinical context: EEG [December 16, 2024] suggestive of encephalopathy. No epileptiform activity. December 14: White count 7 hemoglobin 12.2 platelets 393 sodium 131 potassium 4.5 creatinine 1.25 Brain MRI: Marked metastatic disease throughout the brain. No midline shift. Modified barium swallow: Deep transient penetration noted. CT abdomen pelvis: Prostatomegaly. Moderate coronary artery and aortic valve calcification. Subcarinal lymph node. 2D echo: EF 50 to 20%. Cannot exclude apical thrombus.Mild to moderate MR. Assessment plan: -Acute metabolic encephalopathy from brain metastasis: Some improvement Decadron 4 mg IV every 6. P.o. Decadron -Cardiomyopathy, EF 15 to 20%, ischemic versus nonischemic, Given patient's poor functional status. And overall guarded prognosis. Cardiac catheterization this point not of any value -Extensive metastatic brain disease, with seizure activity. On Keppra and dexamethasone and Ativan as needed -Acute on chronic pain from metastatic lung cancer and arthritis Patient has been on Mooreton. Still having pain. Start MS Contin 15 every 12. Use Mooreton as needed. -New onset diabetes mellitus, type II, uncontrolled with hyperglycemia, hemoglobin A1c 7.9, and will continue with sliding scale and long-acting and adjust accordingly. -Acute renal failure: Probably due to intravascular depletion, improving patient is also on losartan with decreased blood pressures this could be attributing to his creatinine and would recommend to hold the losartan we will leave this up to cardiology at this time. -Hyponatremia hypoosmolar hyponatremia -Right upper lobe mass status post recent bronchoscopy with recent diagnosis of small cell lung carcinoma, with brain metastasis. Patient seen by Dr. Jonas Martínez. Daughter informed. Patient does not want chemotherapy and she wishes to respect patient's wishes. Patient not a candidate for radiation because of poor functional status and not delirium/altered mentation. -COPD history, presently not in acute exacerbation DuoNeb -Generalized weakness with gait dysfunction, patient evaluated by physical therapy recommending rehab and patient is agreeable. Patient will be going to rehab on discharge. Patient will be going to [facility] and has received insurance authorization awaiting finalized testing per oncology before discharge -DNR, daughter obtained legal guardianship yesterday Advance care planning [December 16, 2024 This was discussed with patient daughter at the bedside. Daughter's cousin also present at the bedside. Patient lives in [place] with his daughter. Daughter does not have any transport. It was discussed that patient needs to remain still for any rate brain radiation. Currently not possible. As patient still a bit delirious. Also patient does not want any chemotherapy as expressed per her daughter. She is taking care of 2 other family members at home with hospice and keen for that. Shown interest to use [facility]. Informational visit will be done. Disposition: Home with hospice Plan - Discharge Summary Discharge Rx Participant: No New Discharge Prescriptions: New Spironolactone [Aldactone] 12.5 mg PO DAILY tab levETIRAcetam [Keppra] 1,000 mg PO Q12HR #1 tab Pantoprazole [Protonix] 40 mg PO AC-BRKFST tab Metoprolol Succinate (ER) [Toprol XL] 25 mg PO DAILY tab Losartan [Cozaar] 25 mg PO DAILY tab dexAMETHasone ORAL [Hexadrol] 4 mg PO TID tab Morphine Sulfate ER [Ms Contin] 15 mg PO Q12HR tab HYDROcodone/APAP 5-325MG [Mooreton 5-325] 1 each PO Q4HR PRN tab PRN Reason: Pain Scopolamine 1 mg/72 Hr Patch [TransDerm Scop] 1 patch TRANSDERM Q72H patch Continue Gabapentin [Neurontin] 100 mg PO TID Zonisamide [Zonegran] 100 mg PO BID Albuterol Sulfate [Albuterol Sulfate Hfa] 1 puff INHALATION RT-Q4H PRN PRN Reason: Shortness Of Breath QUEtiapine [SEROquel] 25 mg PO BID FLUoxetine HCL [PROzac] 10 mg PO TID Zonisamide [Zonegran] 50 mg PO BID Ipratropium-Albuterol Nebulize [Duoneb 0.5 mg-3 mg/3 ml Soln] 3 ml INHALATION TID #90 ml Budesonide-Formot 160-4.5 Mcg [Symbicort 160-4.5 Mcg Inhaler] 2 puff INHALATION RT-BID Discontinued Mv-Min/Folic/K1/Lycopen/Lutein [Centrum Silver Men Tablet] 1 tab PO DAILY Apixaban [Eliquis] 5 mg PO BID Discharge Medication List Albuterol Sulfate [Albuterol Sulfate Hfa] 1 puff INHALATION RT-Q4H PRN 11/22/24 [History] FLUoxetine HCL [PROzac] 10 mg PO TID 11/22/24 [History] Gabapentin [Neurontin] 100 mg PO TID 11/22/24 [History] QUEtiapine [SEROquel] 25 mg PO BID 11/22/24 [History] Zonisamide [Zonegran] 50 mg PO BID 11/22/24 [History] Zonisamide [Zonegran] 100 mg PO BID 11/22/24 [History] Ipratropium-Albuterol Nebulize [Duoneb 0.5 mg-3 mg/3 ml Soln] 3 ml INHALATION TID #90 ml 11/23/24 [Rx] Budesonide-Formot 160-4.5 Mcg [Symbicort 160-4.5 Mcg Inhaler] 2 puff INHALATION RT-BID 12/07/24 [History] HYDROcodone/APAP 5-325MG [Mooreton 5-325] 1 each PO Q4HR PRN tab 12/21/24 [Rx] Losartan [Cozaar] 25 mg PO DAILY tab 12/21/24 [Rx] Metoprolol Succinate (ER) [Toprol XL] 25 mg PO DAILY tab 12/21/24 [Rx] Morphine Sulfate ER [Ms Contin] 15 mg PO Q12HR tab 12/21/24 [Rx] Pantoprazole [Protonix] 40 mg PO AC-BRKFST tab 12/21/24 [Rx] Scopolamine 1 mg/72 Hr Patch [TransDerm Scop] 1 patch TRANSDERM Q72H patch 12/21/24 [Rx] Spironolactone [Aldactone] 12.5 mg PO DAILY tab 12/21/24 [Rx] dexAMETHasone ORAL [Hexadrol] 4 mg PO TID tab 12/21/24 [Rx] levETIRAcetam [Keppra] 1,000 mg PO Q12HR #1 tab 12/21/24 [Rx] Follow up Appointment(s)/Referral(s): Jaiden Cardona MD [Primary Care Provider] - 1-2 days Discharge Disposition: HOME WITH HOSPICE Plan of Treatment: Outpatient evaluation for left and right heart catheterization as a part cardiomyopathy workup
== END 2024-12-21 15:49 | disposition hospice, home (50) | DRG 291 ==
LOC: EC 16:53 → INTOOBSV 19:25 → 3SCARD 19:25 → EEVIPCON 19:26 → OBSVTOIN 19:26 → 3SCARD 21:00 → 4SSUR 12-17 21:16
PROVIDERS: ADMIT Hospitalist; ATTEND Hospitalist
DX: I13.0 Hypertensive heart and chronic kidney disease with heart failure and stage 1 through stage 4 chronic kidney disease, or unspecified chronic kidney disease (principal); G93.41 Metabolic encephalopathy; G93.6 Cerebral edema; I26.93 Single subsegmental thrombotic pulmonary embolism without acute cor pulmonale; I26.99 Other pulmonary embolism without acute cor pulmonale; J96.01 Acute respiratory failure with hypoxia; I50.23 Acute on chronic systolic (congestive) heart failure; C79.31 Secondary malignant neoplasm of brain; I51.3 Intracardiac thrombosis, not elsewhere classified; C34.11 Malignant neoplasm of upper lobe, right bronchus or lung; E86.1 Hypovolemia; J44.0 Chronic obstructive pulmonary disease with (acute) lower respiratory infection; E11.22 Type 2 diabetes mellitus with diabetic chronic kidney disease; I27.20 Pulmonary hypertension, unspecified; N18.9 Chronic kidney disease, unspecified; I35.0 Nonrheumatic aortic (valve) stenosis; J44.1 Chronic obstructive pulmonary disease with (acute) exacerbation; N17.9 Acute kidney failure, unspecified; R56.9 Unspecified convulsions; E11.649 Type 2 diabetes mellitus with hypoglycemia without coma; E11.65 Type 2 diabetes mellitus with hyperglycemia; Z79.4 Long term (current) use of insulin; I42.0 Dilated cardiomyopathy; Z66 Do not resuscitate; E87.20 Acidosis, unspecified; R47.01 Aphasia; R00.0 Tachycardia, unspecified; J98.11 Atelectasis; E87.1 Hypo-osmolality and hyponatremia; J20.9 Acute bronchitis, unspecified; F41.9 Anxiety disorder, unspecified; F17.200 Nicotine dependence, unspecified, uncomplicated; T81.82XA Emphysema (subcutaneous) resulting from a procedure, initial encounter; N40.0 Benign prostatic hyperplasia without lower urinary tract symptoms; G89.3 Neoplasm related pain (acute) (chronic); M19.90 Unspecified osteoarthritis, unspecified site; I34.0 Nonrheumatic mitral (valve) insufficiency; I95.9 Hypotension, unspecified; R26.9 Unspecified abnormalities of gait and mobility; Z79.01 Long term (current) use of anticoagulants; Z91.81 History of falling; Z79.899 Other long term (current) drug therapy; Z88.0 Allergy status to penicillin; Z79.51 Long term (current) use of inhaled steroids
CPT/HCPCS: 36415; 70553; 71045; 71046; 74177; 74230; 80048; 80053; 82550; 83036; 83605; 83735; 83880; 84100; 84145; 84443; 84484; 85025; 85027; 85610; 85730; 87636; 93005; 93306; 94640; 94760; 95816; 96361; 96365; 96366; 96375; 99291